=== PATIENT | male | born 1955 ===

== ENCOUNTER 2017-11-13 12:46 | Inpatient (IN) | payer MEDICAID, OTHER ==
--- NOTE | 2017-11-13 13:29 | ED PDOC ---
HPI: Headache Time Seen by Provider: 11/13/17 13:27 Chief Complaint (Nursing): Headache Chief Complaint (Provider): HEADACHE History Per: Patient (62 Y/O MALE H/O DM/HTN HERE WITH RIGHT EYE VISUAL DEFECT SINCE YESTERDAY AM. NOTES HEADACHE LAST NIGHT AT 11 PM. HERE FOR HEADACHE IT IS NOT IMPROVED WITH TYLENOL. PATIENT STATES RIGHT EYE UPPER QUADRANT HAS SOMETHING THERE/DENIES LOSS OF VISION.) Past Medical History Reviewed: Historical Data, Nursing Documentation, Vital Signs Vital Signs: Last Vital Signs Temp 97.0 F L 11/13/17 12:58 Pulse 83 11/13/17 12:58 Resp 16 11/13/17 12:58 BP 140/85 11/13/17 12:58 Pulse Ox 99 11/13/17 12:58 - Medical History PMH: Diabetes, HTN, Hypercholesterolemia Denies: Chronic Kidney Disease - Family History Family History: States: Unknown Family Hx - Immunization History Hx Influenza Vaccination: Yes - Home Medications Home Medications: Ambulatory Orders Medication Instructions Recorded MetFORMIN [glucOPHAGE] 1,000 mg PO DAILY 06/04/17 Insulin Aspart Prot/Insuln Asp 25 unit SC QPM 11/13/17 [Novolog Mix 70-30 Vial] Lisinopril [Zestril] 20 mg PO DAILY 11/13/17 Multivitamin [Multi-Vitamin Daily] 1 tab PO DAILY 11/13/17 - Allergies Allergies/Adverse Reactions: Allergies Allergy/AdvReac Type Severity Reaction Status Date / Time alendronate sodium Allergy RASH Verified 11/13/17 12:57 Review of Systems ROS Statement: Except As Marked, All Systems Reviewed And Found Negative Physical Exam - Reviewed Nursing Documentation Reviewed: Yes Vital Signs Reviewed: Yes - Physical Exam Appears: Positive for: Well, Non-toxic, No Acute Distress Head Exam: Positive for: ATRAUMATIC, NORMAL INSPECTION, NORMOCEPHALIC Skin: Positive for: Normal Color, Warm, DRY Eye Exam: Positive for: EOMI, Normal appearance, PERRL ENT: Positive for: Normal ENT Inspection Neck: Positive for: Normal, Painless ROM Cardiovascular/Chest: Positive for: Regular Rate, Rhythm Respiratory: Positive for: CNT, Normal Breath Sounds Gastrointestinal/Abdominal: Positive for: Normal Exam, Bowel Sounds, Soft Back: Positive for: Normal Inspection Extremity: Positive for: Normal ROM Neurologic/Psych: Positive for: Alert, Oriented - Laboratory Results Result Diagrams: 11/13/17 13:36 11/13/17 13:36 - ECG ECG Rhythm: Positive for: Sinus Rhythm (NSR 78 BPM NO ECTOPY T WAVE INV AVL; NO ACUTE CHANGES) O2 Sat by Pulse Oximetry: 99 - Progress ED Course And Treament: HEAD CT: IMPRESSION: No intracranial mass, hemorrhage or evidence of acute infarct. 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 D/W DR. HARRISON. RECOMMENDS MRI BRAIN/ MRA NECK/HEAD. 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 This is because of the severity of symptoms shown, intensity of services needed, and/or the medical risk in this patient being treated as an outpatient.
[2017-11-13 13:53] LABS: BASO # 0.1 K/uL (0.0-0.2); BASO % 0.9 % (0.0-2.0); EOS # 0.2 K/uL (0.0-0.7); EOS % 2.2 % (0.0-4.0); HEMOGLOBIN 13.6 g/dL (12.0-18.0); LYMPH # 1.8 K/uL (1.0-4.3); LYMPH % 20.6 % (20.0-40.0); MEAN CELL VOLUME 85.4 fl (80.0-94.0); MEAN PLATELET VOLUME 8.8 fl (7.2-11.7); MONO # 0.4 K/uL (0.0-0.8); NEUT # 6.5 K/uL (1.8-7.0); NEUT % 72.3 % (50.0-75.0); NRBC % 0.1 % (0.0-0.0); RBC 4.67 Mil/uL (4.40-5.90); RED CELL DISTRIBUTION WIDTH 14.1 % (11.5-14.5); WHITE BLOOD COUNT 8.9 K/uL (4.8-10.8)
[2017-11-13 14:03] LABS: INR 0.9 (0.9-1.2); PARTIAL THROMBOPLASTIN TIME 29.4 Seconds (25.6-37.1); PROTHROMBIN TIME 9.4 Seconds (9.8-13.1)
--- NOTE | 2017-11-13 14:11 | RAD ---
PROCEDURE: CHEST RADIOGRAPH, 1 VIEW HISTORY: ROUTINE COMPARISON: None available. FINDINGS: LUNGS: Clear. PLEURA: No pneumothorax or pleural fluid seen. CARDIOVASCULAR: Normal. OSSEOUS STRUCTURES: No significant abnormalities. VISUALIZED UPPER ABDOMEN: Normal. OTHER FINDINGS: None. IMPRESSION: No active disease.
--- NOTE | 2017-11-13 14:11 | CT ---
PROCEDURE: CT HEAD WITHOUT CONTRAST. HISTORY: VISUAL DEFECT RIGHT EYE/HEADACHE COMPARISON: None available. TECHNIQUE: Axial computed tomography images were obtained through the head/brain without intravenous contrast. Radiation dose: Total exam DLP = 865.00 mGy-cm. This CT exam was performed using one or more of the following dose reduction techniques: Automated exposure control, adjustment of the mA and/or kV according to patient size, and/or use of iterative reconstruction technique. FINDINGS: HEMORRHAGE: No intracranial hemorrhage. BRAIN: No mass effect or edema. No atrophy or chronic microvascular ischemic changes. Incidentally noted giant cisterna magna versus arachnoid cyst in posterior fossa. More likely giant cisterna magna. No likely clinical significance. VENTRICLES: Unremarkable. No hydrocephalus. CALVARIUM: Unremarkable. PARANASAL SINUSES: Unremarkable as visualized. No significant inflammatory changes. MASTOID AIR CELLS: Unremarkable as visualized. No inflammatory changes. OTHER FINDINGS: None. IMPRESSION: No intracranial mass, hemorrhage or evidence of acute infarct. 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
[2017-11-13 14:16] LABS: ALBUMIN 3.3 g/dL (3.5-5.0); ALT/SGPT 32 U/L (21-72); AST/SGOT 20 U/L (17-59); BLOOD UREA NITROGEN 22 mg/dl (9-20); CALCIUM 8.7 mg/dL (8.4-10.2); GFR AFRICAN-AMERICAN > 60; GFR NON-AFRICAN AMERICAN > 60
--- NOTE | 2017-11-13 17:02 | MRI ---
PROCEDURE: MR Angiography of the neck without contrast HISTORY: VISUAL DEFECT/HEADACHE COMPARISON: None available. TECHNIQUE: 3D [id number] angiography of the neck was performed. Rotating maximum intensity projection images of the cervical carotid and vertebral arteries were generated. The origins of the common carotid arteries were not visualized, which is a limitation inherent to the non-contrast time of flight technique. FINDINGS: RIGHT CAROTID ARTERIES: Common Carotid Artery: Normal. Carotid Bifurcation: A moderately large plaques identified at the carotid bulb extending to the right ICA resulting in a moderate right IAC stenosis Internal Carotid Artery:Moderate right ICA stenosis suggested potentially up to 50 percent. External Carotid Artery (proximal branches): Normal. LEFT CAROTID ARTERIES: Common Carotid Artery: Normal. Carotid Bifurcation: Normal. Internal Carotid Artery:Normal. External Carotid Artery (proximal branches): Normal. VERTEBRAL ARTERIES: Right Vertebral Artery: Normal. Left Vertebral Artery: Normal. OTHER FINDINGS: None. IMPRESSION: A moderate stenosis suggested at the right ICA origin extending from the right carotid bulb. Consider correlation with carotid ultrasound for additional evaluation. No significant stenosis otherwise at the right CCA or ICA. No significant stenosis left CCA or ICA.
--- NOTE | 2017-11-13 17:07 | MRI ---
PROCEDURE: Magnetic Resonance Angiography Brain HISTORY: VISUAL DEFECT/ HEADACHE COMPARISON: None available. TECHNIQUE: 3D time of flight MR angiography of the intracranial arteries was performed. Rotating maximum intensity projection images were generated. FINDINGS: INTERNAL CAROTID ARTERIES: Unremarkable. The skull base, petrous, cavernous and supraclinoid segments are bilaterally widely patient. ANTERIOR CEREBRAL ARTERIES: There is a hypoplastic right A1 BEHZAD. Left A1 and bilateral A2 segments are widely patent. Smaller distal branches unremarkable, as visualized. MIDDLE CEREBRAL ARTERIES: Unremarkable. M1 and M2 segments are widely patent. Perisylvian branches grossly symmetric. POSTERIOR CIRCULATION: Basilar Artery: Unremarkable. Distal Vertebral Arteries: Unremarkable. Posterior Cerebral Arteries: Hypoplastic right P1 PERSONNEL ASSOCIATE with the left PERSONNEL ASSOCIATE unremarkable. Posterior Inferior Cerebellar Arteries: Unremarkable. ANEURYSM/ VASCULAR MALFORMATIONS: None. OTHER FINDINGS: Widely patent bilateral posterior communicating artery's with a robust right P com identified. IMPRESSION: No definite significant stenosis or occlusion identified with symmetric blood flow identified within the intracranial arterial circulation. Congenital findings as discussed above.
--- NOTE | 2017-11-13 17:16 | MRI ---
PROCEDURE: MRI BRAIN WITHOUT CONTRAST HISTORY: VISUAL DEFECT COMPARISON: Unenhanced head CT 11/13/2017. TECHNIQUE: Multiplanar, multisequence MR images of the brain were obtained without intravenous contrast enhancement. FINDINGS: HEMORRHAGE: None DWI: Acute or subacute lacune left frontal lobe. BRAIN PARENCHYMA: Good corticomedullary differentiation is seen. Limited expansion of the ventriculosulcal and cisternal spaces is appreciated with minimal white matter signal changes compatible with diffuse cerebral atrophy and chronic microangiopathy. No suspicious extra-axial fluid collection is identified and the midline brain anatomy appears grossly nonfocal as imaged. There is no mass effect throughout. VENTRICLES: Unremarkable. No hydrocephalus. CRANIUM: Unremarkable. ORBITS: Grossly unremarkable. PARANASAL SINUSES/MASTOIDS: Clear VASCULAR SYSTEM: Skull base flow voids intact. OTHER FINDINGS: None. IMPRESSION: An acute or subacute lacune is identified in the left frontal lobe. Limited age-related neuro degenerative changes are otherwise identified. No mass effect or suspicious extra-axial fluid collection. No definite intracranial hemorrhage.
--- NOTE | 2017-11-13 18:04 | CP.PCM.HP ---
History of Present Illness - History of Present Illness History of Present Illness: Nolberto Lamas is a 62 yo M, PMH hypertension, diabetes mellitus type 2, hyperlipidemia who presented to the ED today with complaint of headache since last night, started around 3 am, and is waxing and waning in nature, ranging from a 1/10 to a 7/10. Pt reports that he took 400 mg ibuprofen and did not have marked relief. He also states that he has vision changes in his R eye- he is able to see out of it, but feels like "it is dirty," and reported that this problem started 3 days ago. Pt has not seen a PMD in over a year. Reports that he has been sharing his ' s medication. Reports that he takes 20U insulin (unable to say which) nightly, and metformin 1000mg daily, as well as lisinopril 20mg daily. He states he has history of hyperlipidemia as well. PMH: HTN, DM2, HLD Surg hx: left great toe hallux amputation Family hx: mother with htn, father of alcohol related issues Social hx: former tobacco smoker (ages [age], 1 ppd), drinks 1-2 times a month 10-20 drinks at a time, denies drug use Allergies: alendronate sodium Meds: as above, pt shares meds w/ his . reports he takes 20u sc insulin nightly, metformin 1000g daily, lisinopril 20mg daily. Code status: full code Next of kin: Rosie Lamas (daughter) [phone] ROS: denies dizziness, chest pain, shortness of breath, abdominal pain, diarrhea , GI upset, pain in legs ED course: CBC unremarkable CMP: BUN 22, Cr 1.0, glucose 310 EKG: sinus rhythm Head CT: No intracranial mass, hemorrhage or acute infarct. Neuro consult, Dr. Pereyra, recommended MRI brain/MRA neck and head. ASA 81 mg, Lipitor 40mg CXR: no active disease Present on Admission - Present on Admission Any Indicators Present on Admission: Yes History of Uncontrolled Diabetes: Yes Review of Systems - Review of Systems All systems: reviewed and no additional remarkable complaints except - Constitutional Constitutional: Chills, Headache - EENT Eyes: Change in Vision. absent: Loss of Vision - Cardiovascular Cardiovascular: absent: Chest Pain, Dyspnea - Respiratory Respiratory: absent: Cough, Dyspnea, Wheezing - Gastrointestinal Gastrointestinal: absent: Abdominal Pain, Nausea, Vomiting - Genitourinary Genitourinary: absent: Change in Urinary Stream, Difficulty Urinating, Urinary Frequency Past Patient History - Infectious Disease Hx of Infectious Diseases: None - Past Medical History & Family History Past Medical History?: Yes - Past Social History Smoking Status: Former Smoker Alcohol: Other (as per HPI) Drugs: Denies - CARDIAC Hx Hypercholesterolemia: Yes Hx Hypertension: Yes - PULMONARY Hx Respiratory Disorders: No - NEUROLOGICAL Hx Neurological Disorder: No - HEENT Hx HEENT Problems: No - RENAL Hx Chronic Kidney Disease: No - ENDOCRINE/METABOLIC Hx Diabetes Mellitus Type 2: Yes - HEMATOLOGICAL/ONCOLOGICAL Hx Blood Disorders: No - INTEGUMENTARY Hx Dermatological Problems: Yes Hx Cellulitis: Yes (left foot) - GASTROINTESTINAL Hx Gastrointestinal Disorders: No - GENITOURINARY/GYNECOLOGICAL Hx Genitourinary Disorders: No - PSYCHIATRIC Hx Psychophysiologic Disorder: No Hx Substance Use: No - SURGICAL HISTORY Hx Surgeries: Yes Other/Comment: left great toe hallux amputation 2years ago - ANESTHESIA Hx Anesthesia: Yes Hx Anesthesia Reactions: No Meds Allergies/Adverse Reactions: Allergies Allergy/AdvReac Type Severity Reaction Status Date / Time alendronate sodium Allergy RASH Verified 11/13/17 12:57 Physical Exam - Constitutional Appears: Non-toxic, No Acute Distress - Head Exam Head Exam: ATRAUMATIC, NORMAL INSPECTION, NORMOCEPHALIC - Eye Exam Eye Exam: PERRL Additional comments: pterygium on L eye - ENT Exam ENT Exam: Mucous Membranes Moist - Respiratory Exam Respiratory Exam: Clear to Auscultation Bilateral, NORMAL BREATHING PATTERN. absent: Wheezes, Respiratory Distress - Cardiovascular Exam Cardiovascular Exam: REGULAR RHYTHM, +S1, +S2 - GI/Abdominal Exam GI & Abdominal Exam: Normal Bowel Sounds, Soft. absent: Distended, Tenderness - Extremities Exam Extremities exam: Positive for: pedal pulses present. Negative for: calf tenderness, pedal edema, tenderness Additional comments: s/p L great toe hallux amputation - Back Exam Back exam: NORMAL INSPECTION - Neurological Exam Neurological exam: Alert, Oriented x3 Additional comments: 5/5 strength in all 4 extremities No focal neuro deficits - Skin Skin Exam: Dry, Intact Results - Vital Signs Recent Vital Signs: Last Vital Signs Temp 98.4 F 11/13/17 17:26 Pulse 85 11/13/17 17:26 Resp 16 11/13/17 17:26 BP 162/105 H 11/13/17 17:26 Pulse Ox 100 11/13/17 17:26 - Labs Result Diagrams: 11/13/17 13:36 11/13/17 13:36 Labs: Laboratory Results - last 24 hr 11/13/17 11/13/17 11/13/17 13:28 13:36 13:36 WBC 8.9 RBC 4.67 Hgb 13.6 Hct 39.9 MCV 85.4 MCH 29.0 MCHC 34.0 RDW 14.1 Plt Count 221 MPV 8.8 Neut % (Auto) 72.3 Lymph % (Auto) 20.6 [place] % (Auto) 4.0 Eos % (Auto) 2.2 Baso % (Auto) 0.9 Neut # (Auto) 6.5 Lymph # (Auto) 1.8 [place] # (Auto) 0.4 Eos # (Auto) 0.2 Baso # (Auto) 0.1 PT INR APTT Sodium 134 Potassium 5.0 Chloride 97 L Carbon Dioxide 28 Anion Gap 14 BUN 22 H Creatinine 1.0 Est GFR ( Amer) > 60 Est GFR (Non-Af Amer) > 60 POC Glucose (mg/dL) 289 H Random Glucose 310 H Calcium 8.7 Total Bilirubin 0.4 AST 20 ALT 32 Alkaline Phosphatase 134 H Troponin I 0.0140 Total Protein 6.6 Albumin 3.3 L D Globulin 3.2 Albumin/Globulin Ratio 1.0 11/13/17 13:36 WBC RBC Hgb Hct MCV MCH MCHC RDW Plt Count MPV Neut % (Auto) Lymph % (Auto) [place] % (Auto) Eos % (Auto) Baso % (Auto) Neut # (Auto) Lymph # (Auto) [place] # (Auto) Eos # (Auto) Baso # (Auto) PT 9.4 L INR 0.9 APTT 29.4 Sodium Potassium Chloride Carbon Dioxide Anion Gap BUN Creatinine Est GFR ( Amer) Est GFR (Non-Af Amer) POC Glucose (mg/dL) Random Glucose Calcium Total Bilirubin AST ALT Alkaline Phosphatase Troponin I Total Protein Albumin Globulin Albumin/Globulin Ratio Assessment & Plan - Assessment and Plan (Free Text) Assessment: 62 yo M with PMH hypertension, diabetes mellitus type 2, hyperlipidemia who was admitted due to headache and vision changes. Plan: # Vision Changes - Neuro consult: Dr. Pereyra - Head CT: No intracranial mass, hemorrhage or evidence of acute infarct. - Brain MRI w/o contrast: acute or subacute lacunae is identified in left frontal lobe. Limited age-related neuro degenerative changes are otherwise identified. No mass effect or suspicious extra-axial fluid collection. No definite intracranial hemorrhage. - Brain MRA: No definite significant stenosis or occlusion identified with symmetric blood flow identified within intracranial arterial circulation. - Neck MRA: A moderate stenosis suggested at right ICA origin extending from right catorid bulb. Consider correlation with carotid u/s. No significant stenosis otherwise at right CCA or ICA. No significant stenosis at left CCA or ICA. - Carotid U/s pending # Headache - Currently resolved, pt not in pain at this time - CMP, CBC # Diabetes Mellitus, type 2 - Poor follow up - Medication noncompliant, taking 's medications; states he takes 1000 mg metformin daily and 20U of unspecified insulin - HbA1c - Levemir 8U SC nightly - Insulin lispro 3U SC AC TID - Accuchecks - Insulin coverage - Hypoglycemia protocol - Lipid panel, TSH # HTN - Hold meds for now - Monitor BP # DVT Prophylaxis - Lovenox 40 mg SC HS, discussed w/ Dr. Pereyra
[2017-11-13] MEDS ORDERED: Dextrose 50% SYRINGE Inj (50 ml) IV PRN (19:18)
[2017-11-13] MEDS ORDERED: Glucagon Recombinant 1 mg Inj IM PRN (19:18)
[2017-11-13] MEDS ORDERED: Influenza Vaccine 18yr & older 0.5 ML/45 MCG SYR IM ONE (20:21)
[2017-11-13] MEDS: Insulin Lispro (humaLOG) 100 Units/ml Inj SC SCH (21:17)
[2017-11-13] MEDS: Enoxaparin 40 mg Syringe SC SCH (21:18)
[2017-11-13] MEDS ORDERED: Insulin Detemir 100 Units/ml Inj SC SCH (22:00)
[2017-11-14 06:45] LABS: ALT/SGPT 26 U/L (21-72); AST/SGOT 17 U/L (17-59); BLOOD UREA NITROGEN 25 mg/dl (9-20); CALCIUM 8.6 mg/dL (8.4-10.2); GFR AFRICAN-AMERICAN > 60; GFR NON-AFRICAN AMERICAN > 60; HDL CHOLESTEROL 23 MG/DL (30-70)
[2017-11-14 06:56] LABS: LDL CHOLESTEROL 81 mg/dL (0-129)
[2017-11-14 06:58] LABS: BASO # 0.1 K/uL (0.0-0.2); BASO % 0.9 % (0.0-2.0); EOS # 0.2 K/uL (0.0-0.7); EOS % 2.2 % (0.0-4.0); HEMOGLOBIN 13.3 g/dL (12.0-18.0); LYMPH # 2.8 K/uL (1.0-4.3); LYMPH % 24.9 % (20.0-40.0); MEAN CELL VOLUME 85.9 fl (80.0-94.0); MEAN CORPUSCULAR HEMOGLOBIN 29.1 pg (27.0-31.0); MEAN CORPUSCULAR HGB CONC 33.9 g/dL (33.0-37.0); MONO # 0.5 K/uL (0.0-0.8); MONO % 4.2 % (0.0-10.0); NEUT # 7.6 K/uL (1.8-7.0); NEUT % 67.8 % (50.0-75.0); RBC 4.57 Mil/uL (4.40-5.90); RED CELL DISTRIBUTION WIDTH 14.4 % (11.5-14.5); WHITE BLOOD COUNT 11.2 K/uL (4.8-10.8)
[2017-11-14] MEDS: Insulin Lispro (humaLOG) 100 Units/ml Inj SC SCH ×7 (07:03→21:40)
[2017-11-14] MEDS: Multivitamin With Minerals Tab PO SCH (09:03)
--- NOTE | 2017-11-14 13:32 | CP.PCM.PN ---
Subjective - Date & Time of Evaluation Date of Evaluation: 11/14/17 Time of Evaluation: 08:05 - Subjective Subjective: Pt seen and evaluated at bedside today. Reports he had a headache overnight and felt relief with 650 mg Tylenol. Pt stated today that he has actually clyde having visual disturbances intermittently- first time was 3 yrs ago, and then again 6 mo ago, prior to current episode that started 3 days ago. Today he describes the disturbance as a curtain coming down over his R visual field. Objective - Vital Signs/Intake and Output Vital Signs (last 24 hours): Temp Pulse Resp BP Pulse Ox 97.8 F 74 18 179/99 H 98 11/14/17 12:43 11/14/17 12:43 11/14/17 12:43 11/14/17 12:43 11/14/17 12:43 - Medications Medications: Current Medications Acetaminophen (Tylenol 325mg Tab) 650 mg PO Q6 PRN PRN Reason: Headache Last Admin: 11/13/17 23:39 Dose: 650 mg Dextrose (Dextrose 50% Inj) 0 ml IV STAT PRN; Protocol PRN Reason: Hypoglycemia Protocol Dextrose (Glutose 15) 0 gm PO ONCE PRN; Protocol PRN Reason: Hypoglycemia Protocol Enoxaparin Sodium (Lovenox) 40 mg SC HS [facility] PRN Reason: Protocol Last Admin: 11/13/17 21:18 Dose: 40 mg Glucagon (Glucagen Diagnostic Kit) 0 mg IM STAT PRN; Protocol PRN Reason: Hypoglycemia Protocol Insulin Detemir (Levemir) 8 units SC HS [facility] Last Admin: 11/13/17 21:19 Dose: 8 units Insulin Human Lispro (Humalog) 3 units SC ACTID [facility] Last Admin: 11/14/17 09:02 Dose: 3 units Insulin Human Lispro (Humalog) 0 units SC ACHS [facility] PRN Reason: Protocol Last Admin: 11/14/17 07:03 Dose: 3 units Metformin HCl (Glucophage) 1,000 mg PO DAILY [facility] Last Admin: 11/14/17 09:00 Dose: 1,000 mg Multivitamins/Minerals (Therapeutic-M Tab) 1 tab PO DAILY [facility] Last Admin: 11/14/17 09:03 Dose: 1 tab - Labs Labs: 11/14/17 04:45 11/14/17 04:45 PT 9.4 Seconds (9.8-13.1) L 11/13/17 13:36 INR 0.9 (0.9-1.2) 11/13/17 13:36 APTT 29.4 Seconds (25.6-37.1) 11/13/17 13:36 - Constitutional Appears: Non-toxic - Head Exam Head Exam: NORMAL INSPECTION - Eye Exam Eye Exam: PERRL - ENT Exam ENT Exam: Mucous Membranes Moist - Cardiovascular Exam Cardiovascular Exam: REGULAR RHYTHM, +S1, +S2 - GI/Abdominal Exam GI & Abdominal Exam: Soft, Normal Bowel Sounds. absent: Distended, Tenderness - Extremities Exam Extremities Exam: absent: Calf Tenderness, Pedal Edema Additional comments: s/p amputation of hallux on L great toe - Back Exam Back Exam: NORMAL INSPECTION - Neurological Exam Neurological Exam: Alert, Awake, Normal Gait, Oriented x3 - Psychiatric Exam Psychiatric exam: Normal Mood - Skin Skin Exam: Dry, Intact, Normal Color, Warm Assessment and Plan - Assessment and Plan (Free Text) Assessment: 62 yo M with PMHx hypertension, diabetes mellitus type 2, hyperlipidemia who was admitted due to headache and vision changes. Headache overnight, relief with tylenol. Due to information patient provided today, possible opthalmological etiology. Plan: # Subacute ischemic stroke, embolic vs thrombotic - Neuro consult: Dr. Pereyra's note states pt has suffered from subacute ischemic stroke involving left frontal lobe, has right carotid stenosis with right eye blurry vision. - Neuro recs: - Telemetry - Echocardiogram with bubble study - pending - Carotid doppler bilaterally - pending - Aspirin 81 mg daily and Plavix 75 mg daily for 21 days, followed by aspirin 81 mg indefinitely - Lipitor 10 mg daily to maintain LDL < 70 - DVT prophylaxis - lovenox 40 mg SC - Fluids with NS at 100 ml/hr for 24 hrs - Head CT: No intracranial mass, hemorrhage or evidence of acute infarct. - Brain MRI w/o contrast: acute or subacute lacunae is identified in left frontal lobe. Limited age-related neuro degenerative changes are otherwise identified. No mass effect or suspicious extra-axial fluid collection. No definite intracranial hemorrhage. - Brain MRA: No definite significant stenosis or occlusion identified with symmetric blood flow identified within intracranial arterial circulation. - Neck MRA: A moderate stenosis suggested at right ICA origin extending from right catorid bulb. Consider correlation with carotid u/s. No significant stenosis otherwise at right CCA or ICA. No significant stenosis at left CCA or ICA. # Headache - Dr. Pereyra: headache may be caused by stroke or could be independent; will treat with decadron 10 mg IV, as wel as magnesium sulfate 2gm IV. - Relief with 650 mg acetaminophen - Possibly due to poor htn control # Vision changes - Opthalmology consult: Dr. Fraser - stated pt can be seen outpatient # Diabetes Mellitus, type 2 - Poor follow up - Medication noncompliant, taking 's medications; states he takes 1000 mg metformin daily and 20U of unspecified insulin - HbA1c: 10.3 - Levemir 12U SC nightly - Insulin lispro 4U SC AC TID - Accuchecks - Insulin coverage - Hypoglycemia protocol - TSH wnl # HTN - Permissive htn today - Monitor BP # Hyperlipidemia - Total cholesterol 205, LDL 81, HDL 23, Triglycerides 432 - Lipitor 10 mg as per neuro # DVT Prophylaxis - Lovenox 40 mg SC HS, discussed w/ Dr. Pereyra
--- NOTE | 2017-11-14 13:51 | CP.PCM.CON ---
History of Present Illness - History of Present Illness History of Present Illness: Mr. Lamas is a 62-year-old man, who does not follow up with doctors often, but has a past medical history of hypertension, DM2, HLD, who presented to the ED yesterday, complaining of headache that started the previous morning and was intermittent, but was severe at times. He also complained of blurry vision of the right eye. CT did not show anything acute, but MRI showed a left frontal lobe subacute infarct, and MRA of the neck showed a 50% stenosis of the LAYLA. Review of Systems - Review of Systems All systems: reviewed and no additional remarkable complaints except Past Patient History - Infectious Disease Hx of Infectious Diseases: None - Past Medical History & Family History Past Medical History?: Yes - Past Social History Smoking Status: Former Smoker - CARDIAC Hx Hypercholesterolemia: Yes Hx Hypertension: Yes - PULMONARY Hx Respiratory Disorders: No - NEUROLOGICAL Hx Neurological Disorder: No - HEENT Hx HEENT Problems: No - RENAL Hx Chronic Kidney Disease: No - ENDOCRINE/METABOLIC Hx Diabetes Mellitus Type 2: Yes - HEMATOLOGICAL/ONCOLOGICAL Hx Blood Disorders: No Hx AIDS: No Hx Human Immunodeficiency Virus (HIV): No - INTEGUMENTARY Hx Dermatological Problems: Yes Hx Cellulitis: Yes (left foot) - MUSCULOSKELETAL/RHEUMATOLOGICAL Hx Falls: No - GASTROINTESTINAL Hx Gastrointestinal Disorders: No - GENITOURINARY/GYNECOLOGICAL Hx Genitourinary Disorders: No - PSYCHIATRIC Hx Psychophysiologic Disorder: No Hx Substance Use: No - SURGICAL HISTORY Hx Surgeries: Yes Other/Comment: left great toe hallux amputation 2years ago - ANESTHESIA Hx Anesthesia: Yes Hx Anesthesia Reactions: No Meds Allergies/Adverse Reactions: Allergies Allergy/AdvReac Type Severity Reaction Status Date / Time alendronate sodium Allergy RASH Verified 11/13/17 12:57 CT Scan PO Contrast Allergy RASH Uncoded 11/13/17 22:44 - Medications Medications: Current Medications Acetaminophen (Tylenol 325mg Tab) 650 mg PO Q6 PRN PRN Reason: Headache Last Admin: 11/13/17 23:39 Dose: 650 mg Dextrose (Dextrose 50% Inj) 0 ml IV STAT PRN; Protocol PRN Reason: Hypoglycemia Protocol Dextrose (Glutose 15) 0 gm PO ONCE PRN; Protocol PRN Reason: Hypoglycemia Protocol Enoxaparin Sodium (Lovenox) 40 mg SC HS [facility] PRN Reason: Protocol Last Admin: 11/13/17 21:18 Dose: 40 mg Glucagon (Glucagen Diagnostic Kit) 0 mg IM STAT PRN; Protocol PRN Reason: Hypoglycemia Protocol Insulin Detemir (Levemir) 8 units SC HS [facility] Last Admin: 11/13/17 21:19 Dose: 8 units Insulin Human Lispro (Humalog) 3 units SC ACTID [facility] Last Admin: 11/14/17 13:18 Dose: 3 units Insulin Human Lispro (Humalog) 0 units SC ACHS [facility] PRN Reason: Protocol Last Admin: 11/14/17 13:21 Dose: 4 units Metformin HCl (Glucophage) 1,000 mg PO DAILY [facility] Last Admin: 11/14/17 09:00 Dose: 1,000 mg Multivitamins/Minerals (Therapeutic-M Tab) 1 tab PO DAILY [facility] Last Admin: 11/14/17 09:03 Dose: 1 tab Physical Exam - Eye Exam Eye Exam: EOMI, Normal appearance, PERRL - Neck Exam Neck exam: Positive for: Normal Inspection - Respiratory Exam Respiratory Exam: Clear to Auscultation Bilateral, NORMAL BREATHING PATTERN - Cardiovascular Exam Cardiovascular Exam: REGULAR RHYTHM, +S1, +S2 - GI/Abdominal Exam GI & Abdominal Exam: Normal Bowel Sounds, Soft. absent: Tenderness - Rectal Exam Rectal Exam: Deferred - Extremities Exam Extremities exam: Positive for: normal inspection - Back Exam Back exam: NORMAL INSPECTION - Neurological Exam Neurological exam: Alert, CN II-XII Intact, Normal Gait, Oriented x3, Reflexes Normal - Psychiatric Exam Psychiatric exam: Normal Affect, Normal Mood Results - Vital Signs Recent Vital Signs: Last Vital Signs Temp 97.8 F 11/14/17 12:43 Pulse 74 11/14/17 12:43 Resp 18 11/14/17 12:43 BP 179/99 H 11/14/17 12:43 Pulse Ox 98 11/14/17 12:43 - Labs Result Diagrams: 11/14/17 04:45 11/15/17 05:05 Labs: Laboratory Results - last 24 hr 11/13/17 11/13/17 11/13/17 13:36 13:36 13:36 WBC 8.9 RBC 4.67 Hgb 13.6 Hct 39.9 MCV 85.4 MCH 29.0 MCHC 34.0 RDW 14.1 Plt Count 221 MPV 8.8 Neut % (Auto) 72.3 Lymph % (Auto) 20.6 Frontier % (Auto) 4.0 Eos % (Auto) 2.2 Baso % (Auto) 0.9 Neut # (Auto) 6.5 Lymph # (Auto) 1.8 Frontier # (Auto) 0.4 Eos # (Auto) 0.2 Baso # (Auto) 0.1 PT 9.4 L INR 0.9 APTT 29.4 Sodium 134 Potassium 5.0 Chloride 97 L Carbon Dioxide 28 Anion Gap 14 BUN 22 H Creatinine 1.0 Est GFR ( Amer) > 60 Est GFR (Non-Af Amer) > 60 POC Glucose (mg/dL) Random Glucose 310 H Calcium 8.7 Total Bilirubin 0.4 AST 20 ALT 32 Alkaline Phosphatase 134 H Troponin I 0.0140 Total Protein 6.6 Albumin 3.3 L D Globulin 3.2 Albumin/Globulin Ratio 1.0 Triglycerides Cholesterol LDL Cholesterol Direct HDL Cholesterol TSH 3rd Generation 11/13/17 11/14/17 11/14/17 20:59 04:45 04:45 WBC 11.2 H RBC 4.57 Hgb 13.3 Hct 39.2 MCV 85.9 MCH 29.1 MCHC 33.9 RDW 14.4 Plt Count 207 MPV 10.0 Neut % (Auto) 67.8 Lymph % (Auto) 24.9 Frontier % (Auto) 4.2 Eos % (Auto) 2.2 Baso % (Auto) 0.9 Neut # (Auto) 7.6 H Lymph # (Auto) 2.8 Frontier # (Auto) 0.5 Eos # (Auto) 0.2 Baso # (Auto) 0.1 PT INR APTT Sodium 133 Potassium 4.7 Chloride 102 Carbon Dioxide 23 Anion Gap 13 BUN 25 H Creatinine 1.1 Est GFR ( Amer) > 60 Est GFR (Non-Af Amer) > 60 POC Glucose (mg/dL) 262 H Random Glucose 257 H Calcium 8.6 Total Bilirubin 0.4 AST 17 ALT 26 Alkaline Phosphatase 122 Troponin I Total Protein 6.1 L Albumin 3.0 L Globulin 3.1 Albumin/Globulin Ratio 1.0 Triglycerides 432 H D Cholesterol 205 H LDL Cholesterol Direct 81 HDL Cholesterol 23 L TSH 3rd Generation 0.80 11/14/17 11/14/17 05:46 11:22 WBC RBC Hgb Hct MCV MCH MCHC RDW Plt Count MPV Neut % (Auto) Lymph % (Auto) Frontier % (Auto) Eos % (Auto) Baso % (Auto) Neut # (Auto) Lymph # (Auto) Frontier # (Auto) Eos # (Auto) Baso # (Auto) PT INR APTT Sodium Potassium Chloride Carbon Dioxide Anion Gap BUN Creatinine Est GFR ( Amer) Est GFR (Non-Af Amer) POC Glucose (mg/dL) 222 H 285 H Random Glucose Calcium Total Bilirubin AST ALT Alkaline Phosphatase Troponin I Total Protein Albumin Globulin Albumin/Globulin Ratio Triglycerides Cholesterol LDL Cholesterol Direct HDL Cholesterol TSH 3rd Generation Assessment & Plan (1) Ischemic stroke Assessment and Plan: The patient has suffered from a subacute ischemic stroke involving the left frontal lobe, and has right carotid stenosis with right eye blurry vision. These events may be embolic or could be thrombotic. I recommend the followin. Telemetry 2. Echocardiogram with bubble study 3. Carotid doppler bilaterally 4. Aspirin 81 mg daily and Plavix 75 mg daily for 21 days, followed by aspirin 81 mg monotherapy indefinitely 5. Lipitor 10mg daily to maintain LDL< 70 6. PT/OT eval and treat 7. DVT Px 8. Fluids with NS at 100 mL/hr for 24 hours 9. Treat underlying risk factors for stroke and provide stroke education Thank you. Status: Acute Priority: High (2) Headache Assessment and Plan: The headache may be caused by the stroke, or could be independent. Will treat with decadron 10 mg IV once, as well as magnesium sulfate 2 grams IV once. Neurology team will follow. Status: Acute
[2017-11-14] MEDS: Sodium Chloride 0.9% 1,000 ML IV SCH (16:55)
--- NOTE | 2017-11-14 17:48 | CARD ---
APPROVED REPORT EXAM: Two-dimensional and M-mode echocardiogram with Doppler and color Doppler. Other Information Quality : GoodRhythm : NSR INDICATION CVA/TIA Echo Enhancing Agent Indication: Rule Out Septal Defect Agent/Amount Used: Agitated Saline 2D DIMENSIONS IVSd1.44 (0.7-1.1cm)LVDd4.27 (3.9-5.9cm) LVOT Diameter2.34 (1.8-2.4cm)PWd0.91 (0.7-1.1cm) IVSs1.97 (0.8-1.2cm)LVDs2.93 (2.5-4.0cm) FS (%) 31.4 %PWs1.72 (0.8-1.2cm) M-Mode DIMENSIONS Left Atrium (MM)4.03 (2.5-4.0cm)IVSd2.03 (0.7-1.1cm) Aortic Root3.74 (2.2-3.7cm)LVDd4.26 (4.0-5.6cm) Aortic Cusp Exc.2.41 (1.5-2.0cm)PWd1.50 (0.7-1.1cm) IVSs1.85 cmFS (%) 32 % LVDs2.91 (2.0-3.8cm)PWs1.62 cm Mitral Valve MV E Dgkzryfp02.8cm/sMV DECEL [id number] A Quhtnyjt09.7cm/s MV RBO07eeH/A ratio0.6MVA (PHT)2.86cm2 TDI Lateral E' Peak V5.46cm/sMedial E' Peak V3.50cm/sE/Lateral E'11.0 E/Medial E'17.1 Pulmonary Valve PV Peak Jeihtixg77.5cm/s LEFT VENTRICLE The left ventricle is normal size. There is mild asymmetric left ventricular hypertrophy. The left ventricular function is normal. The left ventricular ejection fraction is 55% There is normal LV segmental wall motion. Transmitral Doppler flow pattern is Grade I-abnormal relaxation pattern. No left ventricle thrombus noted on this study. There is no ventricular septal defect visualized. There is no left ventricular aneurysm. There is no mass noted in the left ventricle. RIGHT VENTRICLE The right ventricle is normal size. There is normal right ventricular wall thickness. The right ventricular systolic function is normal. ATRIA The left atrium size is normal. The right atrium size is normal. The interatrial septum is intact with no evidence for an atrial septal defect. AORTIC VALVE The aortic valve is normal in structure. No aortic regurgitation is present. There is no aortic valvular stenosis. There is no aortic valvular vegetation. MITRAL VALVE The mitral valve is normal in structure. There is no evidence of mitral valve prolapse. There is no mitral valve stenosis. There is no mitral valve regurgitation noted. TRICUSPID VALVE The tricuspid valve is normal in structure. There is no tricuspid valve regurgitation noted. There is no tricuspid valve prolapse or vegetation. There is no tricuspid valve stenosis. PULMONIC VALVE The pulmonary valve is normal in structure. There is no pulmonic valvular regurgitation. There is no pulmonic valvular stenosis. GREAT VESSELS The aortic root is normal in size. The ascending aorta is normal in size. The IVC is normal in size and collapses >50% with inspiration. PERICARDIAL EFFUSION The pericardium appears normal. There is no pleural effusion. <Conclusion> Normal LV Systolic Function Mild Asymetric LV Hypertrophy ( No outflow gradient) Impaired diastolic relaxation
--- NOTE | 2017-11-14 18:08 | CARD ---
APPROVED REPORT EKG Measurement Heart [id number] <Conclusion> Normal sinus rhythm Normal ECG
[2017-11-14] MEDS: Enoxaparin 40 mg Syringe SC SCH (21:39)
[2017-11-14] MEDS: Insulin Detemir 100 Units/ml Inj SC SCH (21:41)
[2017-11-15] MEDS: Sodium Chloride 0.9% 1,000 ML IV SCH (02:58)
[2017-11-15 06:42] LABS: ALB/GLOB RATIO 0.9 (1.0-2.1); ALBUMIN 2.7 g/dL (3.5-5.0); ALT/SGPT 27 U/L (21-72); AST/SGOT 21 U/L (17-59); BLOOD UREA NITROGEN 24 mg/dl (9-20); CALCIUM 8.3 mg/dL (8.4-10.2); GFR AFRICAN-AMERICAN > 60; GFR NON-AFRICAN AMERICAN > 60
[2017-11-15] MEDS: Insulin Lispro (humaLOG) 100 Units/ml Inj SC SCH ×7 (07:30→21:34)
--- NOTE | 2017-11-15 09:03 | CP.PCM.PN ---
Subjective - Date & Time of Evaluation Date of Evaluation: 11/15/17 Time of Evaluation: 08:00 - Subjective Subjective: Patient seen and examined at bedside with attending. 62M who is preparing to eat breakfast denies any further episodes fo "dirty vision" or headaches overnight. He denies any dizziness, SOB, chest pain or palpitations. Objective - Vital Signs/Intake and Output Vital Signs (last 24 hours): Temp Pulse Resp BP Pulse Ox 36.7 C 71 18 164/98 H 98 11/15/17 07:58 11/15/17 07:58 11/15/17 07:58 11/15/17 07:58 11/15/17 07:58 - Medications Medications: Current Medications Acetaminophen (Tylenol 325mg Tab) 650 mg PO Q6 PRN PRN Reason: Headache Last Admin: 11/13/17 23:39 Dose: 650 mg Aspirin (Ecotrin) 81 mg PO DAILY [facility] Last Admin: 11/14/17 16:44 Dose: 81 mg Atorvastatin Calcium (Lipitor) 10 mg PO DAILY [facility] Last Admin: 11/14/17 16:45 Dose: 10 mg Clopidogrel Bisulfate (Plavix) 75 mg PO DAILY [facility] Last Admin: 11/14/17 16:44 Dose: 75 mg Dextrose (Dextrose 50% Inj) 0 ml IV STAT PRN; Protocol PRN Reason: Hypoglycemia Protocol Dextrose (Glutose 15) 0 gm PO ONCE PRN; Protocol PRN Reason: Hypoglycemia Protocol Docusate Sodium (Colace) 100 mg PO BID [facility] Enoxaparin Sodium (Lovenox) 40 mg SC [facility] PRN Reason: Protocol Last Admin: 11/14/17 21:39 Dose: 40 mg Glucagon (Glucagen Diagnostic Kit) 0 mg IM STAT PRN; Protocol PRN Reason: Hypoglycemia Protocol Sodium Chloride (Sodium Chloride 0.9%) 1,000 mls @ 100 mls/hr IV .Q10H [facility] Stop: 11/15/17 14:57 Last Admin: 11/15/17 02:58 Dose: 100 mls/hr Insulin Detemir (Levemir) 12 units SC HS [facility] Last Admin: 11/14/17 21:41 Dose: 12 units Insulin Human Lispro (Humalog) 0 units SC ACHS [facility] PRN Reason: Protocol Last Admin: 11/14/17 21:40 Dose: Not Given Insulin Human Lispro (Humalog) 4 units SC ACTID [facility] Metformin HCl (Glucophage) 1,000 mg PO BIDWM [facility] Multivitamins/Minerals (Therapeutic-M Tab) 1 tab PO DAILY [facility] Last Admin: 11/14/17 09:03 Dose: 1 tab - Labs Labs: 11/14/17 04:45 11/15/17 05:05 PT 9.4 Seconds (9.8-13.1) L 11/13/17 13:36 INR 0.9 (0.9-1.2) 11/13/17 13:36 APTT 29.4 Seconds (25.6-37.1) 11/13/17 13:36 - Constitutional Appears: Well, Non-toxic - Head Exam Head Exam: ATRAUMATIC, NORMAL INSPECTION - Eye Exam Eye Exam: EOMI, PERRL - ENT Exam ENT Exam: Mucous Membranes Moist - Respiratory Exam Respiratory Exam: Clear to Ausculation Bilateral, NORMAL BREATHING PATTERN - Cardiovascular Exam Cardiovascular Exam: REGULAR RHYTHM, +S1, +S2 - GI/Abdominal Exam GI & Abdominal Exam: Soft, Normal Bowel Sounds - Extremities Exam Extremities Exam: Full ROM, Normal Capillary Refill, Normal Inspection - Neurological Exam Neurological Exam: Alert, Awake, CN II-XII Intact, Normal Gait, Oriented x3 - Psychiatric Exam Psychiatric exam: Normal Affect, Normal Mood - Skin Skin Exam: Normal Color, Warm Assessment and Plan - Assessment and Plan (Free Text) Assessment: 62M found to have ischemic stroke on secondary stroke prevention. Plan: Ischemic Stroke: Echo WNL w/ negative bubble study, IVF, ASA/Plavix, Statin, Permissive HTN at this time, Carotid Duplex pending HTN: Permissive at present DM: Increased frequency of Metformin from daily to BIDWM, will adjust insulin regimen at later DVT Prophylaxis: Lovenox
[2017-11-15] MEDS: Multivitamin With Minerals Tab PO SCH (09:05)
[2017-11-15] MEDS ORDERED: Labetalol 5mg/ml (4ml) IVP STA ×2 (12:10→18:09)
[2017-11-15] MEDS ORDERED: Labetalol 5mg/ml (4ml) ONE ×2 (12:14→18:06)
--- NOTE | 2017-11-15 13:14 | PCM.RRT ---
JEWEL SAWYER Nurse Assessment - Situation JEWEL SAWYER Reason for Call: Hypertension JEWEL SAWYER Called By: RN - IV IV Inserted during JEWEL SAWYER?: No - Respiratory Oxygen Delivery Method: Room Air I.Reason for JEWEL SAWYER - A) Acute Change in Patient: (Select all that apply): Acute change in SBP below Subjective: JEWEL SAWYER time call: 12:00 JEWEL SAWYER Arrival: 12:01 JEWEL SAWYER Location: [facility]– [place] S: JEWEL SAWYER was called by RN on a 62 y/o M who had a very elevated BP. Nurse reported being taking care of patient and detecting a vert high BP upon checking vital signs. Pt complained only of a mild constant headache located on occipital area. Pt denies fever, chills, CP, palpitations, SOB, nausea, dizziness or confusion. O: - VS: BP 218/103, HR 84, Sat O2 97%, RR 16 - Physical Exam: > GEN: Pt was resting comfortably on bed, in suspine position, not in acute distress, awake, alert, oriented x3 and verbally responsive. > HEENT: NC/AT, EOMI, PEERL, oropharynx with NO erythema. > CV: S1 S2 present. > Lungs: CTAB > EXT: No edema, cyanosis or erythema. Amputated first toe. > NEURO: strength 5/5 bilaterally in upper and lower extremities, SILT b/l, CN 2-12 except CN 8 were grossly normal. JEWEL SAWYER Interventions: - EKG was ordered, unremarkable. - Labetalol 20mg IVP was administered. - Pt remained responsive through JEWEL SAWYER in no acute distress. - Primary care team was reported about JEWEL SAWYER episode. Repeated Vital Signs: BP 189/84, HR 82. A/P: 62 y/o M with a PMHx of DM 2, HLD and HTN admitted for evaluation of subacute CVA, had a episode of elevated BP. Due to CVA, BP has has not to be reduced rapidly. - Add Lisinopril 10mg daily, hold if BP<150. - Continue current management. - Monitor VS. JEWEL SAWYER End: 12:21 JEWEL SAWYER Leader: Dr Norris, Dr Jensen. JEWEL SAWYER Residents: Dr Britton PGY-1, Dr Duarte PGY-1.
[2017-11-15] MEDS ORDERED: Dexamethasone 10 MG in Sodium Chloride 0.9% 50 ML IVPB ONE (14:18)
--- NOTE | 2017-11-15 14:56 | CP.PCM.PN ---
Subjective - Date & Time of Evaluation Date of Evaluation: 11/15/17 Time of Evaluation: 14:53 - Subjective Subjective: Mr. Lamas was seen and examined today at bedside. He had an ENVIRONMENTAL EDUCATOR called earlier today for hypertensive emergency. He had a headache at the time and his BP was lowered acutely and his headache improved somewhat. He did not have any mental status changes or new focal neurological deficits. He said that his vision is improved today. Objective - Vital Signs/Intake and Output Vital Signs (last 24 hours): Temp Pulse Resp BP Pulse Ox 98.1 F 77 18 189/84 H 97 11/15/17 12:00 11/15/17 12:00 11/15/17 12:00 11/15/17 12:20 11/15/17 12:00 - Medications Medications: Current Medications Acetaminophen (Tylenol 325mg Tab) 650 mg PO Q6 PRN PRN Reason: Headache Last Admin: 11/13/17 23:39 Dose: 650 mg Aspirin (Ecotrin) 81 mg PO DAILY [facility] Last Admin: 11/15/17 09:05 Dose: 81 mg Atorvastatin Calcium (Lipitor) 10 mg PO DAILY [facility] Last Admin: 11/15/17 09:05 Dose: 10 mg Clopidogrel Bisulfate (Plavix) 75 mg PO DAILY [facility] Last Admin: 11/15/17 09:05 Dose: 75 mg Dexamethasone (Decadron Inj) 10 mg IVP ONCE ONE Stop: 11/15/17 15:01 Dextrose (Dextrose 50% Inj) 0 ml IV STAT PRN; Protocol PRN Reason: Hypoglycemia Protocol Dextrose (Glutose 15) 0 gm PO ONCE PRN; Protocol PRN Reason: Hypoglycemia Protocol Docusate Sodium (Colace) 100 mg PO BID [facility] Last Admin: 11/15/17 09:15 Dose: 100 mg Enoxaparin Sodium (Lovenox) 40 mg SC HS [facility] PRN Reason: Protocol Last Admin: 11/14/17 21:39 Dose: 40 mg Glucagon (Glucagen Diagnostic Kit) 0 mg IM STAT PRN; Protocol PRN Reason: Hypoglycemia Protocol Magnesium Sulfate (Magnesium Sulfate 2 Gm/50 Ml Water) 2 gm in 50 mls @ 50 mls/ hr IVPB ONCE ONE PRN Reason: 2 GM/HR Stop: 11/15/17 15:59 Insulin Detemir (Levemir) 12 units SC HS [facility] Last Admin: 11/14/17 21:41 Dose: 12 units Insulin Human Lispro (Humalog) 0 units SC ACHS [facility] PRN Reason: Protocol Last Admin: 11/15/17 07:30 Dose: 2 units Insulin Human Lispro (Humalog) 4 units SC ACTID [facility] Last Admin: 11/15/17 07:30 Dose: 4 units Lisinopril (Zestril) 10 mg PO DAILY [facility] Metformin HCl (Glucophage) 1,000 mg PO BIDWM [facility] Last Admin: 11/15/17 09:05 Dose: 1,000 mg Multivitamins/Minerals (Therapeutic-M Tab) 1 tab PO DAILY [facility] Last Admin: 11/15/17 09:05 Dose: 1 tab - Labs Labs: 11/14/17 04:45 11/15/17 05:05 PT 9.4 Seconds (9.8-13.1) L 11/13/17 13:36 INR 0.9 (0.9-1.2) 11/13/17 13:36 APTT 29.4 Seconds (25.6-37.1) 11/13/17 13:36 - Neurological Exam Neurological Exam: Alert, Awake, CN II-XII Intact, Normal Gait, Oriented x3, Reflexes Normal. absent: Abnormal Gait, Altered, Motor Sensory Deficit Neuro motor strength exam: Left Upper Extremity: 5, Right Upper Extremity: 5, Left Lower Extremity: 5, Right Lower Extremity: 5 Assessment and Plan (1) Ischemic stroke Assessment & Plan: Will continue secondary stroke prevention and follow carotid doppler. Status: Acute (2) Headache Assessment & Plan: Will treat with decadron 10 mg IV once and magnesium sulfate 2 grams IV once. May normalize BP now. Status: Acute
[2017-11-15] MEDS ORDERED: Magnesium Sulfate 2 gm/50 ml 2 GM/50 ML BAG IVPB ONE (15:00)
[2017-11-15] MEDS ORDERED: Metoprolol 1 mg/ml Inj IVP ONE (16:32)
--- NOTE | 2017-11-15 19:50 | PCM.RRT ---
[employer] Nurse Assessment - Situation Location: telemetry Room Number: 406- [employer] Reason for Call: Hypertension [employer] Called By: RN - IV IV Inserted during SUPERVISOR [employer]ER[employer]?: No - Respiratory Oxygen Delivery Method: Room Air Received Nebulizer Treatments: No Was the Patient Ventilated with Bag/Mask 100% O2?: No Secretions Suctioned?: No Was the Patient Intubated?: No Was the Patient Placed on a Ventilator?: No - Medication Medications Administered During [employer]: Labetalol 20 mg IVP - Diagnostic Test Ordered EKG: No Chest X-Ray: No CT Scan: No CPR started during [employer]?: No - Vital Signs Vital Signs: Rapid Response Vital Sign Blood Pressure 220/115 Pulse Rate 85 Respiratory Rate 18 Oxygen Saturation 97 - Time [employer] Ended Time [employer] Ended: 18:10 - Vital Signs at end of [employer] Vital Signs at end of [employer]OR [employer]: Rapid Response End Vital Sign Blood Pressure 200/94 Pulse Rate 86 Respiratory Rate 18 O2 Sat by Pulse Oximetry 97 - Recommendations [employer] Level of Care Recommendations: Remain in current setting I.Reason for [employer] - A) Acute Change in Patient: Subjective: [employer] time call: 18:02 [employer] Arrival: 18:02 [employer] Location: [facility] [place] [facility] S: [employer] was called by RN on a 62 y/o M who had a very elevated BP again. Pt reports being asymptomatic. Pt now denies headache, fever, chills, CP, palpitations, SOB, nausea, dizziness or confusion. O: - VS: BP 220/115, HR 85. - Physical Exam: > GEN: Pt was resting comfortably on bed, not in acute distress, awake, alert , oriented x3 and verbally responsive. > HEENT: NC/AT, EOMI, PEERL, oropharynx with NO erythema. > CV: S1 S2 present. > Lungs: CTAB > EXT: No edema, cyanosis or erythema. Amputated first toe. > NEURO: strength 5/5 bilaterally in upper and lower extremities, SILT b/l. [employer] Interventions: - Labetalol 20mg IVP was administered. - Pt remained responsive through [employer] in no acute distress. - Primary care team was reported about this new [employer] episode. Repeated Vital Signs 1 minute after Labetalol administration: BP 200/94, HR 82. Repeated Vital Signs 10 minute after Labetalol administration: BP 196/107, HR 86. A/P: 62 y/o M with a PMHx of DM 2, HLD and HTN admitted for evaluation of subacute CVA, had another episode of elevated BP. Due to CVA, BP has has not to be reduced rapidly. - Lisinopril 10mg daily, hold if BP<150. - Continue current management. - Monitor VS. [employer] End: 18:20 [employer] Leader: Dr Norris. [employer] Residents: Dr Ramos PGY-2, Dr Duarte PGY-1.
[2017-11-15] MEDS: Enoxaparin 40 mg Syringe SC SCH (21:32)
[2017-11-15] MEDS: Insulin Detemir 100 Units/ml Inj SC SCH (21:34)
[2017-11-15] MEDS ORDERED: Insulin Detemir 100 Units/ml Inj SC SCH (23:02)
[2017-11-16] MEDS ORDERED: Labetalol 5 mg/ml Inj 20ML IVP ONE (00:28)
--- NOTE | 2017-11-16 02:31 | CP.PCM.PCO ---
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 I went to check on patient, he was asymptomatic, lying in bed comfortably. I asked nurse to recheck BP in 1 hour. 20:30 Patient was seen, BP remained 190s systolic, HCTZ 12.5mg was ordered. 00:00 BP remained in 190s, patient still asymptomatic, Labetolol 20mg ordered. 02:30 BP checked by me, 138/82, HR 91. Patient lying in bed without any complaints. Richard PGY 2
[2017-11-16 06:30] LABS: HEMOGLOBIN 12.9 g/dL (12.0-18.0); MEAN CELL VOLUME 86.1 fl (80.0-94.0); MEAN CORPUSCULAR HEMOGLOBIN 28.8 pg (27.0-31.0); MEAN CORPUSCULAR HGB CONC 33.5 g/dL (33.0-37.0); RBC 4.48 Mil/uL (4.40-5.90); RED CELL DISTRIBUTION WIDTH 14.4 % (11.5-14.5); WHITE BLOOD COUNT 10.8 K/uL (4.8-10.8)
[2017-11-16] MEDS: Insulin Lispro (humaLOG) 100 Units/ml Inj SC SCH ×7 (06:40→22:09)
[2017-11-16 06:41] LABS: BLOOD UREA NITROGEN 33 mg/dl (9-20); CALCIUM 8.5 mg/dL (8.4-10.2); GFR AFRICAN-AMERICAN > 60; GFR NON-AFRICAN AMERICAN > 60
[2017-11-16] MEDS: Multivitamin With Minerals Tab PO SCH (09:05)
--- NOTE | 2017-11-16 12:01 | CP.PCM.PN ---
Subjective - Date & Time of Evaluation Date of Evaluation: 11/16/17 Time of Evaluation: 07:30 - Subjective Subjective: Pt was seen and evaluated at bedside this am. Sitting comfortably in bed, in no acute distress. There were 2 central processing technician called for him yesterday due to elevated to 200s systolic BP, and his BP was lowered during the central processing technician. This morning BP 140s/ 80s. Pt reports no headache at this time. Objective - Vital Signs/Intake and Output Vital Signs (last 24 hours): Temp Pulse Resp BP Pulse Ox 97.7 F 75 18 146/82 95 11/16/17 07:47 11/16/17 07:47 11/16/17 07:47 11/16/17 07:47 11/16/17 07:47 - Medications Medications: Current Medications Acetaminophen (Tylenol 325mg Tab) 650 mg PO Q6 PRN PRN Reason: Headache Last Admin: 11/13/17 23:39 Dose: 650 mg Aspirin (Ecotrin) 81 mg PO DAILY [facility] Last Admin: 11/16/17 09:03 Dose: 81 mg Atorvastatin Calcium (Lipitor) 10 mg PO DAILY [facility] Last Admin: 11/16/17 09:05 Dose: 10 mg Clopidogrel Bisulfate (Plavix) 75 mg PO DAILY [facility] Last Admin: 11/16/17 09:05 Dose: 75 mg Dextrose (Dextrose 50% Inj) 0 ml IV STAT PRN; Protocol PRN Reason: Hypoglycemia Protocol Dextrose (Glutose 15) 0 gm PO ONCE PRN; Protocol PRN Reason: Hypoglycemia Protocol Docusate Sodium (Colace) 100 mg PO BID [facility] Last Admin: 11/16/17 08:59 Dose: 100 mg Enoxaparin Sodium (Lovenox) 40 mg SC HS [facility] PRN Reason: Protocol Last Admin: 11/15/17 21:32 Dose: 40 mg Glucagon (Glucagen Diagnostic Kit) 0 mg IM STAT PRN; Protocol PRN Reason: Hypoglycemia Protocol Hydrochlorothiazide (Microzide) 12.5 mg PO DAILY [facility] Last Admin: 11/16/17 09:05 Dose: 12.5 mg Insulin Detemir (Levemir) 16 units SC HS [facility] Insulin Human Lispro (Humalog) 0 units SC ACHS [facility] PRN Reason: Protocol Last Admin: 11/16/17 06:40 Dose: 4 units Insulin Human Lispro (Humalog) 5 units SC ACTID [facility] Last Admin: 11/16/17 09:04 Dose: 5 u Metformin HCl (Glucophage) 1,000 mg PO BIDWM [facility] Last Admin: 11/16/17 09:03 Dose: 1,000 mg Multivitamins/Minerals (Therapeutic-M Tab) 1 tab PO DAILY [facility] Last Admin: 11/16/17 09:05 Dose: 1 tab - Labs Labs: 11/16/17 04:41 11/16/17 04:41 PT 9.4 Seconds (9.8-13.1) L 11/13/17 13:36 INR 0.9 (0.9-1.2) 11/13/17 13:36 APTT 29.4 Seconds (25.6-37.1) 11/13/17 13:36 - Constitutional Appears: Non-toxic, No Acute Distress - Head Exam Head Exam: NORMAL INSPECTION - Eye Exam Eye Exam: Normal appearance - ENT Exam ENT Exam: Mucous Membranes Moist - Respiratory Exam Respiratory Exam: Clear to Ausculation Bilateral, NORMAL BREATHING PATTERN - Cardiovascular Exam Cardiovascular Exam: REGULAR RHYTHM, +S1, +S2 - GI/Abdominal Exam GI & Abdominal Exam: Soft, Normal Bowel Sounds - Extremities Exam Extremities Exam: absent: Calf Tenderness, Pedal Edema - Back Exam Back Exam: NORMAL INSPECTION - Neurological Exam Neurological Exam: Alert, Awake, Oriented x3 Neuro motor strength exam: Left Upper Extremity: 5, Right Upper Extremity: 5, Left Lower Extremity: 5, Right Lower Extremity: 5 Additional comments: no focal neuro deficits - Psychiatric Exam Psychiatric exam: Normal Affect, Normal Mood - Skin Skin Exam: Dry, Intact, Normal Color, Warm Assessment and Plan - Assessment and Plan (Free Text) Assessment: 62 yo M, PMH HTN, DM2, admitted due to subacute infarct, with uncontrolled BP; BP is being monitored. Plan: # Subacute ischemic stroke, embolic vs thrombotic - Neuro consult: Dr. Pereyra's note states pt has suffered from subacute ischemic stroke involving left frontal lobe, has right carotid stenosis with right eye blurry vision. - Neuro recs: tele, echo w/ bubble study (completed), carotid doppler (pending) , aspirin 81 mg daily indefinitely, plavix 75 mg for 21 days (today is day 3), lipitor 10 mg daily, IV NS @ 100ml/hr for 24 hrs (completed) - Carotid doppler pending - Past/completed imaging: - Head CT: No intracranial mass, hemorrhage or evidence of acute infarct. - Brain MRI w/o contrast: acute or subacute lacunae is identified in left frontal lobe. Limited age-related neuro degenerative changes are otherwise identified. No mass effect or suspicious extra-axial fluid collection. No definite intracranial hemorrhage. - Brain MRA: No definite significant stenosis or occlusion identified with symmetric blood flow identified within intracranial arterial circulation. - Neck MRA: A moderate stenosis suggested at right ICA origin extending from right catorid bulb. Consider correlation with carotid u/s. No significant stenosis otherwise at right CCA or ICA. No significant stenosis at left CCA or ICA. # HTN - Permissive htn under 200 systolic - Several episodes yesterday of systolic BP over 200, possibly due to steroids for headache vs increased volume due to receiving fluids - Monitor BP - Today lisinopril 10 mg if BP elevated in afternoon # Headache - Dr. Pereyra: headache may be caused by stroke or could be independent;s/p tx with decadron 10 mg IV, as well as magnesium sulfate 2gm IV. - Relief with 650 mg acetaminophen - Possibly due to poor htn control # Vision changes - Opthalmology consult: Dr. Fraser - stated pt can be seen outpatient # Diabetes Mellitus, type 2 - Poor follow up - Medication noncompliant, taking 's medications; states he takes 1000 mg metformin daily and 20U of unspecified insulin - HbA1c: 10.3 - Levemir 16U SC nightly - Insulin lispro 5U SC AC TID - Accuchecks - Insulin coverage - Hypoglycemia protocol - TSH wnl # Hyperlipidemia - Total cholesterol 205, LDL 81, HDL 23, Triglycerides 432 - Lipitor 10 mg as per neuro # DVT Prophylaxis - Lovenox 40 mg SC HS, discussed w/ Dr. Pereyra
--- NOTE | 2017-11-16 13:24 | CP.PCM.PN ---
Subjective - Date & Time of Evaluation Date of Evaluation: 11/16/17 Time of Evaluation: 13:23 - Subjective Subjective: Mr. Lamas was seen and examineda t the bedside. He is alert, oriented in all spheres. He denies any headache, dizziness, blurred vision, diplopia. He claims of his vision being improved since admission. He is able to follow all commands. Echocardiogram showed normal LV function with impaired diastolic relaxation.There was no untoward events overnight. Objective - Vital Signs/Intake and Output Vital Signs (last 24 hours): Temp Pulse Resp BP Pulse Ox 97.5 F L 79 18 149/84 99 11/16/17 12:00 11/16/17 12:00 11/16/17 12:00 11/16/17 12:00 11/16/17 12:00 - Medications Medications: Current Medications Acetaminophen (Tylenol 325mg Tab) 650 mg PO Q6 PRN PRN Reason: Headache Last Admin: 11/13/17 23:39 Dose: 650 mg Aspirin (Ecotrin) 81 mg PO DAILY [facility] Last Admin: 11/16/17 09:03 Dose: 81 mg Atorvastatin Calcium (Lipitor) 10 mg PO DAILY [facility] Last Admin: 11/16/17 09:05 Dose: 10 mg Clopidogrel Bisulfate (Plavix) 75 mg PO DAILY [facility] Last Admin: 11/16/17 09:05 Dose: 75 mg Dextrose (Dextrose 50% Inj) 0 ml IV STAT PRN; Protocol PRN Reason: Hypoglycemia Protocol Dextrose (Glutose 15) 0 gm PO ONCE PRN; Protocol PRN Reason: Hypoglycemia Protocol Docusate Sodium (Colace) 100 mg PO BID [facility] Last Admin: 11/16/17 08:59 Dose: 100 mg Enoxaparin Sodium (Lovenox) 40 mg SC HS [facility] PRN Reason: Protocol Last Admin: 11/15/17 21:32 Dose: 40 mg Glucagon (Glucagen Diagnostic Kit) 0 mg IM STAT PRN; Protocol PRN Reason: Hypoglycemia Protocol Hydrochlorothiazide (Microzide) 12.5 mg PO DAILY [facility] Last Admin: 11/16/17 09:05 Dose: 12.5 mg Insulin Detemir (Levemir) 16 units SC HS [facility] Insulin Human Lispro (Humalog) 0 units SC ACHS [facility] PRN Reason: Protocol Last Admin: 11/16/17 12:57 Dose: 2 units Insulin Human Lispro (Humalog) 5 units SC ACTID [facility] Last Admin: 11/16/17 12:58 Dose: 5 u Metformin HCl (Glucophage) 1,000 mg PO BIDWM [facility] Last Admin: 11/16/17 09:03 Dose: 1,000 mg Multivitamins/Minerals (Therapeutic-M Tab) 1 tab PO DAILY [facility] Last Admin: 11/16/17 09:05 Dose: 1 tab - Labs Labs: 11/16/17 04:41 11/16/17 04:41 PT 9.4 Seconds (9.8-13.1) L 11/13/17 13:36 INR 0.9 (0.9-1.2) 11/13/17 13:36 APTT 29.4 Seconds (25.6-37.1) 11/13/17 13:36 - Constitutional Appears: No Acute Distress - Head Exam Head Exam: NORMAL INSPECTION - Neurological Exam Neurological Exam: Alert, Awake, Oriented x3 Neuro motor strength exam: Left Upper Extremity: 5, Right Upper Extremity: 5, Left Lower Extremity: 5, Right Lower Extremity: 5 Additional comments: He is alert, oriented in all sphere, follows commands. Sensation remains intact. Assessment and Plan (1) Ischemic stroke Assessment & Plan: Case discussed with DR. Pereyra, continue all current medical, physical, and occupational therapies. Pending carotid doppler results. Recommend blood pressure control and glycemic control. Status: Acute
--- NOTE | 2017-11-16 14:16 | US ---
PROCEDURE: Duplex ultrasound of the carotid and vertebral arteries. HISTORY: Vision changes COMPARISON: Correlation made with MRA neck 11/13/2017. TECHNIQUE: Grayscale and duplex Doppler evaluation of the cervical carotid and vertebral arteries were performed. The common carotid, carotid bifurcations and cervical ICA and proximal ECA were evaluated. The vertebral arteries were evaluated for gross patency and direction. FINDINGS: RIGHT CAROTID ARTERIES: Partially calcified atherosclerotic plaque seen in the right carotid bifurcation and proximal internal carotid artery. Findings suggest velocity measurements based on peak systolic velocity within the left internal carotid artery Right ICA velocity = 80.0 cm/ S Right CCA velocity = 84.6 cm/S ICA/CCA Ratio: 1.3 LEFT CAROTID ARTERIES: Partially calcified atherosclerotic plaque in the left carotid bifurcation and proximal internal carotid artery present. Peak systolic velocity within the internal carotid artery borders between mild and moderate stenosis. Left ICA velocity = 93.0 cm/S Left CCA velocity = 109 cm /S. ICA/CCA Ratio: 1.0 VERTEBRAL ARTERIES: Right Vertebral Artery: Patent. Antegrade flow. Left Vertebral Artery: Patent. Antegrade flow. OTHER FINDINGS: None. IMPRESSION: Atherosclerotic plaque changes both carotid bifurcations and proximal internal carotid arteries. Velocity measurements suggest mild narrowing in the right internal carotid artery and borderline mild to moderate narrowing left internal carotid artery as above
[2017-11-16] MEDS ORDERED: Insulin Detemir 100 Units/ml Inj SC SCH (22:00)
[2017-11-16] MEDS: Enoxaparin 40 mg Syringe SC SCH (22:10)
[2017-11-17] MEDS: Insulin Lispro (humaLOG) 100 Units/ml Inj SC SCH ×6 (06:40→16:43)
[2017-11-17] MEDS: Multivitamin With Minerals Tab PO SCH (08:34)
--- NOTE | 2017-11-17 09:05 | CP.PCM.PN ---
Subjective - Date & Time of Evaluation Date of Evaluation: 11/17/17 Time of Evaluation: 09:01 - Subjective Subjective: Mr. Lamas was seen and examined at the bedside. He is alert, oriented in all spheres. He denies any headache, dizzinessm lightheadedness, diplopia, nause, or vomiting. He is able to answer questions appropriately and follows commands. Carotid doppler showed atherosclerotic plaque changes both carotid bifurcations and proximal ICA. Velocity measurements suggest mild narrowing in the right ICA and borderline mild to moderate narrowing left ICA.There was no untoward events overnight. Objective - Vital Signs/Intake and Output Vital Signs (last 24 hours): Temp Pulse Resp BP Pulse Ox 97.5 F L 71 18 153/88 H 99 11/17/17 07:57 11/17/17 07:57 11/17/17 07:57 11/17/17 07:57 11/17/17 07:57 - Medications Medications: Current Medications Acetaminophen (Tylenol 325mg Tab) 650 mg PO Q6 PRN PRN Reason: Headache Last Admin: 11/13/17 23:39 Dose: 650 mg Aspirin (Ecotrin) 81 mg PO DAILY [facility] Last Admin: 11/17/17 08:33 Dose: 81 mg Atorvastatin Calcium (Lipitor) 10 mg PO DAILY [facility] Last Admin: 11/17/17 08:34 Dose: 10 mg Clopidogrel Bisulfate (Plavix) 75 mg PO DAILY [facility] Last Admin: 11/17/17 08:34 Dose: 75 mg Dextrose (Dextrose 50% Inj) 0 ml IV STAT PRN; Protocol PRN Reason: Hypoglycemia Protocol Dextrose (Glutose 15) 0 gm PO ONCE PRN; Protocol PRN Reason: Hypoglycemia Protocol Docusate Sodium (Colace) 100 mg PO BID [facility] Last Admin: 11/17/17 08:33 Dose: 100 mg Enalapril Maleate (Vasotec) 10 mg PO ONCE ONE Stop: 11/17/17 19:56 Last Admin: 11/16/17 20:30 Dose: 10 mg Enalapril Maleate (Vasotec) 5 mg PO Q12 [facility] Last Admin: 11/17/17 08:35 Dose: 5 mg Enoxaparin Sodium (Lovenox) 40 mg SC HS [facility] PRN Reason: Protocol Last Admin: 11/16/17 22:10 Dose: 40 mg Glucagon (Glucagen Diagnostic Kit) 0 mg IM STAT PRN; Protocol PRN Reason: Hypoglycemia Protocol Insulin Detemir (Levemir) 16 units SC HS [facility] Last Admin: 11/16/17 22:09 Dose: 16 units Insulin Human Lispro (Humalog) 0 units SC ACHS [facility] PRN Reason: Protocol Last Admin: 11/17/17 06:40 Dose: Not Given Insulin Human Lispro (Humalog) 5 units SC ACTID [facility] Last Admin: 11/16/17 17:41 Dose: 5 u Metformin HCl (Glucophage) 1,000 mg PO BIDWM [facility] Last Admin: 11/17/17 08:34 Dose: 1,000 mg Multivitamins/Minerals (Therapeutic-M Tab) 1 tab PO DAILY [facility] Last Admin: 11/17/17 08:34 Dose: 1 tab - Labs Labs: 11/16/17 04:41 11/16/17 04:41 PT 9.4 Seconds (9.8-13.1) L 11/13/17 13:36 INR 0.9 (0.9-1.2) 11/13/17 13:36 APTT 29.4 Seconds (25.6-37.1) 11/13/17 13:36 - Constitutional Appears: No Acute Distress - Head Exam Head Exam: NORMAL INSPECTION - Neurological Exam Neurological Exam: Alert, Awake, Oriented x3 Neuro motor strength exam: Left Upper Extremity: 5, Right Upper Extremity: 5, Left Lower Extremity: 5, Right Lower Extremity: 5 Additional comments: Neurological unchanged from previous examination. Assessment and Plan (1) Ischemic stroke Assessment & Plan: Case discussed with Dr. Draper, continue all current medical regimen including dual antiplatelet and statin. Continue physical and occupational therapies, blood pressure control and glycemic control are also recommended. Recommend to follow up with an outpatient neurologist upon discharge. Status: Acute
--- NOTE | 2017-11-17 11:26 | CP.PCM.DIS ---
Provider - Provider Date of Admission: 11/13/17 15:41 Attending physician: Daina Daniel MD Primary care physician: [facility] Consults: Neurology- Dr. Pereyra Ophthalmology- Dr. Fraser Time Spent in preparation of Discharge (in minutes): 45 Diagnosis - Discharge Diagnosis (1) Ischemic stroke Status: Acute Priority: High Comment: seen by neurologists Dr. Pereyra and Dr. Draper; pt needs follow up with neurology in 2 weeks. Other recs include plavix 75mg daily for total of 21 days , aspirin 81 mg daily indefinitely, lipitor 10 mg daily. (2) DM2 (diabetes mellitus, type 2) Status: Chronic Comment: Uncontrolled; HbA1c 10.3. Had been taking improper dose of insulin; total daily dose calculated and adjusted throughout hospital stay and pt given insulin prescription on discharge. (3) Headache Status: Resolved (4) HTN (hypertension) Status: Chronic Comment: Monitored throughout hospital stay; pt stated he had been taking family member's medicine; strongly advised against doing that. lisinopril 20mg daily on discharge. (5) Transient vision disturbance of right eye Status: Resolved Comment: Ophthalmology was consulted - Dr. Fraser called unit back and stated pt can be seen outpatient. Vision disturbance currently resolved. Hospital Course - Lab Results Lab Results: Most Recent Lab Values WBC 10.8 K/uL (4.8-10.8) 11/16/17 04:41 RBC 4.48 Mil/uL (4.40-5.90) 11/16/17 04:41 Hgb 12.9 g/dL (12.0-18.0) 11/16/17 04:41 Hct 38.6 % (35.0-51.0) 11/16/17 04:41 MCV 86.1 fl (80.0-94.0) 11/16/17 04:41 MCH 28.8 pg (27.0-31.0) 11/16/17 04:41 MCHC 33.5 g/dL (33.0-37.0) 11/16/17 04:41 RDW 14.4 % (11.5-14.5) 11/16/17 04:41 Plt Count 216 K/uL (130-400) 11/16/17 04:41 MPV 10.0 fl (7.2-11.7) 11/14/17 04:45 Neut % (Auto) 67.8 % (50.0-75.0) 11/14/17 04:45 Lymph % (Auto) 24.9 % (20.0-40.0) 11/14/17 04:45 Barnes % (Auto) 4.2 % (0.0-10.0) 11/14/17 04:45 Eos % (Auto) 2.2 % (0.0-4.0) 11/14/17 04:45 Baso % (Auto) 0.9 % (0.0-2.0) 11/14/17 04:45 Neut # (Auto) 7.6 K/uL (1.8-7.0) H 11/14/17 04:45 Lymph # (Auto) 2.8 K/uL (1.0-4.3) 11/14/17 04:45 Barnes # (Auto) 0.5 K/uL (0.0-0.8) 11/14/17 04:45 Eos # (Auto) 0.2 K/uL (0.0-0.7) 11/14/17 04:45 Baso # (Auto) 0.1 K/uL (0.0-0.2) 11/14/17 04:45 PT 9.4 Seconds (9.8-13.1) L 11/13/17 13:36 INR 0.9 (0.9-1.2) 11/13/17 13:36 APTT 29.4 Seconds (25.6-37.1) 11/13/17 13:36 Sodium 133 mmol/l (132-148) 11/16/17 04:41 Potassium 4.5 MMOL/L (3.6-5.0) 11/16/17 04:41 Chloride 103 mmol/L (98-107) 11/16/17 04:41 Carbon Dioxide 20 mmol/L (22-30) L 11/16/17 04:41 Anion Gap 15 (10-20) 11/16/17 04:41 BUN 33 mg/dl (9-20) H 11/16/17 04:41 Creatinine 1.1 mg/dl (0.8-1.5) 11/16/17 04:41 Est GFR ( Amer) > 60 11/16/17 04:41 Est GFR (Non-Af Amer) > 60 11/16/17 04:41 POC Glucose (mg/dL) 108 mg/dL (65-110) 11/17/17 05:33 Random Glucose 307 mg/dL (75-110) H 11/16/17 04:41 Hemoglobin A1c 10.3 % (4.2-6.5) H 11/14/17 04:45 Calcium 8.5 mg/dL (8.4-10.2) 11/16/17 04:41 Total Bilirubin 0.3 mg/dl (0.2-1.3) 11/15/17 05:05 AST 21 U/L (17-59) 11/15/17 05:05 ALT 27 U/L (21-72) 11/15/17 05:05 Alkaline Phosphatase 102 U/L (38-126) 11/15/17 05:05 Troponin I 0.0140 ng/mL (0.00-0.120) 11/13/17 13:36 Total Protein 5.6 G/DL (6.3-8.2) L 11/15/17 05:05 Albumin 2.7 g/dL (3.5-5.0) L 11/15/17 05:05 Globulin 3.0 gm/dL (2.2-3.9) 11/15/17 05:05 Albumin/Globulin Ratio 0.9 (1.0-2.1) L 11/15/17 05:05 Triglycerides 432 mg/DL (0-149) H D 11/14/17 04:45 Cholesterol 205 mg/dL (0-199) H 11/14/17 04:45 LDL Cholesterol Direct 81 mg/dL (0-129) 11/14/17 04:45 HDL Cholesterol 23 MG/DL (30-70) L 11/14/17 04:45 TSH 3rd Generation 0.80 mIU/ML (0.46-4.68) 11/14/17 04:45 - Hospital Course Hospital Course: Mr. Lamas is a 62 yo M with PMH DM2, HTN who presented to the ED and was admitted due to headache and vision disturbances. Neurology was consulted, and pt was found to have a subacute ischemic stroke (thrombotic vs embolic). Neuro ( Dr. Pereyra) recommendations appreciated - echo w/ bubble study, carotid u/s (mild -moderate bilateral ICA stenosis), pt placed on plavix 75 mg (today is day 4 ), aspirin 81 mg indefinitely, lipitor 10 mg daily, and PT/OT eval (did not recommend services). Ophthalmology was consulted- Dr. Fraser stated pt can be seen outpt. Pt's blood pressure was monitored- permissive hypertension was allowed to systolic up to 200s until the day before admission; was lowered if BP was above that. Recommendations from neuro today are to have systolic below/ around 150, so pt will be discharged with lisinopril 20mg daily. His diabetes is uncontrolled as evidenced by HbA1c of 10.3 and elevated accucheks on arrival of almost 300; his total daily dose has been calculated and adjusted throughout his stay, and he will be discharged with novolog prescription. He will follow up at [facility] on November 20, 2017 at 11:20 am. Pt was given a print-out of all of his medications with instructions on how to take them, written in Wolof, and they were discussed with him at length in the presence of his and daughter, who along with the patient verbalized understanding of the medication regimen. Discharge Exam - Head Exam Head Exam: NORMAL INSPECTION - Eye Exam Eye Exam: EOMI, Normal appearance, PERRL - Neck Exam Neck exam: Full Rom - Respiratory Exam Respiratory Exam: Clear to PA & Lateral, NORMAL BREATHING PATTERN, UNREMARKABLE - Cardiovascular Exam Cardiovascular Exam: REGULAR RHYTHM, +S1, +S2 - GI/Abdominal Exam GI & Abdominal Exam: Normal Bowel Sounds, Soft. absent: Distended, Tenderness - Extremities Exam Extremities exam: normal capillary refill, pedal pulses present - Back Exam Back exam: NORMAL INSPECTION - Neurological Exam Neurological exam: Alert, Altered, Normal Gait, Oriented x3 - Psychiatric Exam Psychiatric exam: Normal Affect, Normal Mood - Skin Skin Exam: Dry, Normal Color, Warm Discharge Plan - Discharge Medications Prescriptions: Aspirin [Ecotrin] 81 mg PO DAILY #30 tab Atorvastatin [Lipitor] 10 mg PO QPM #30 tab Clopidogrel [Plavix] 75 mg PO DAILY #18 tab Insulin Aspart/Insulin Aspar [Novolog Mix 70/30 (70/30 units/ml)] 22 units SC QAM #1 vial Insulin Aspart/Insulin Aspar [Novolog Mix 70/30 (70/30 units/ml)] 11 units SC QPM #1 vial Lisinopril [Zestril] 20 mg PO DAILY #30 tab MetFORMIN [glucoPHAGE] 1,000 mg PO BIDWM #60 tab - Follow Up Plan Condition: FAIR Disposition: HOME/ ROUTINE Instructions: High Blood Pressure in Adults, Diabetes Type 2 (DC) Additional Instructions: Please follow up at [facility] at [address] [place] [address] The clinic phone number is [phone]. Your appt is November 20, 2017 at 11:20 am. Referrals: [facility] [Provider Group] Clinical Quality Measures - CQM - Stroke Antithrombotic Prescribed: Yes Anticoagulation Prescribed for Atrial Flutter, Atrial Fibrillation and History of:: Not Applicable Statin prescribed: Yes
--- NOTE | 2017-11-17 12:18 | CARD ---
APPROVED REPORT EKG Measurement Heart [id number] <Conclusion> Normal sinus rhythm Normal ECG
[2017-11-17 15:37] VITALS: RESP 20
[2017-11-17 19:33] VITALS: BP 124/82; PULSE 90; TEMP 98.5; O2SAT 99
== END 2017-11-17 19:52 | disposition home or self-care (01) | DRG 65 ==
LOC: H.ER 12:46 → H.ERHOLD 15:41 → H.TEL 18:17
PROVIDERS: ADMIT Family Medicine Geriatric Medicine; ATTEND Family Medicine Geriatric Medicine
PROC: 3E0234Z Introduction of Serum, Toxoid and Vaccine into Muscle, Percutaneous Approach (ICD-10-PCS; principal; 2017-11-13)
DX: I63.9 Cerebral infarction, unspecified (principal); I16.1 Hypertensive emergency; E11.65 Type 2 diabetes mellitus with hyperglycemia; I10 Essential (primary) hypertension; E78.00 Pure hypercholesterolemia, unspecified; E78.5 Hyperlipidemia, unspecified; Z87.891 Personal history of nicotine dependence; Z91.14 Patient's other noncompliance with medication regimen; H53.8 Other visual disturbances; I65.23 Occlusion and stenosis of bilateral carotid arteries; Z91.041 Radiographic dye allergy status; Z23 Encounter for immunization

== ENCOUNTER 2018-05-13 17:23 | Inpatient (IN) | payer MEDICAID, SELFPAY ==
[2018-05-13 18:10] LABS: BASO # 0.1 K/uL (0.0-0.2); BASO % 0.7 % (0.0-2.0); EOS # 0.2 K/uL (0.0-0.7); LYMPH # 1.6 K/uL (1.0-4.3); LYMPH % 13.1 % (20.0-40.0); MEAN CELL VOLUME 86.2 fl (80.0-94.0); MEAN CORPUSCULAR HEMOGLOBIN 28.9 pg (27.0-31.0); MEAN CORPUSCULAR HGB CONC 33.5 g/dL (33.0-37.0); MEAN PLATELET VOLUME 8.4 fl (7.2-11.7); MONO # 0.8 K/uL (0.0-0.8); MONO % 6.4 % (0.0-10.0); NEUT # 9.7 K/uL (1.8-7.0); NEUT % 77.8 % (50.0-75.0); NRBC % 0.1 % (0.0-0.0); RBC 4.16 Mil/uL (4.40-5.90); RED CELL DISTRIBUTION WIDTH 14.6 % (11.5-14.5); WHITE BLOOD COUNT 12.5 K/uL (4.8-10.8)
--- NOTE | 2018-05-13 18:20 | ED PDOC ---
Lower Extremity Pain/Injury Time Seen by Provider: 05/13/18 17:41 Chief Complaint (Nursing): Lower Extremity Problem/Injury Chief Complaint (Provider): Foot ulcer History Per: Patient History/Exam Limitations: no limitations Onset/Duration Of Symptoms: Days Current Symptoms Are (Timing): Still Present Additional History Per: Patient Additional Complaint(s): 63yo male with history of diabetes, comes to ER for evaluation of diabetic foot ulcer with pain, discharge, erythema and swelling to right 2nd toe. Patient reports a mild cough as well. He denies any fever, weakness, ankle or leg pain. Patient was evaluated by a manager tax 3 years ago for an amputation but has not had any evaluation since then. No other complaints. PMD: None provided Past Medical History Reviewed: Historical Data, Nursing Documentation, Vital Signs Vital Signs: Last Vital Signs Temp 98.5 F 05/13/18 17:35 Pulse 87 05/13/18 17:35 Resp 18 05/13/18 17:35 BP 135/86 05/13/18 17:35 Pulse Ox 99 05/13/18 17:35 - Medical History PMH: Diabetes, HTN, Hypercholesterolemia Denies: HIV, Chronic Kidney Disease - Surgical History Other surgeries: left foot amputation - Family History Family History: States: No Known Family Hx - Living Arrangements Living Arrangements: With Family - Immunization History Hx Influenza Vaccination: Yes - Home Medications Home Medications: Ambulatory Orders Medication Instructions Recorded Aspirin [Ecotrin] 81 mg PO DAILY #30 tab 11/17/17 Atorvastatin [Lipitor] 10 mg PO QPM #30 tab 11/17/17 Clopidogrel [Plavix] 75 mg PO DAILY #18 tab 11/17/17 Insulin Aspart/Insulin Aspar 11 units SC QPM #1 vial 11/17/17 [Novolog Mix 70/30 (70/30 units/ml)] Insulin Aspart/Insulin Aspar 22 units SC QAM #1 vial 11/17/17 [Novolog Mix 70/30 (70/30 units/ml)] Lisinopril [Zestril] 20 mg PO DAILY #30 tab 11/17/17 MetFORMIN [glucoPHAGE] 1,000 mg PO BIDWM #60 tab 11/17/17 - Allergies Allergies/Adverse Reactions: Allergies Allergy/AdvReac Type Severity Reaction Status Date / Time alendronate sodium Allergy RASH Verified 11/13/17 12:57 CT Scan PO Contrast Allergy RASH Uncoded 11/13/17 22:44 Review of Systems ROS Statement: Except As Marked, All Systems Reviewed And Found Negative Constitutional: Negative for: Fever, Chills Musculoskeletal: Positive for: Foot Pain (pain, swelling, erythema and discharge to right 2nd toe). Negative for: Leg Pain Neurological: Negative for: Weakness Physical Exam - Reviewed Nursing Documentation Reviewed: Yes Vital Signs Reviewed: Yes - Physical Exam Appears: Positive for: Non-toxic Head Exam: Positive for: ATRAUMATIC, NORMAL INSPECTION, NORMOCEPHALIC Skin: Positive for: Normal Color Eye Exam: Positive for: Normal appearance Neck: Positive for: Supple Cardiovascular/Chest: Positive for: Regular Rate, Rhythm Respiratory: Positive for: Normal Breath Sounds Gastrointestinal/Abdominal: Positive for: Normal Exam, Soft Back: Positive for: Normal Inspection Extremity: Positive for: Deformity (left foot s/p hallux amputation), Other ( right foot 2nd digit with erythema, ulceration, discharge and small eschar; right 3rd toe with erythema and discharge as well. Erythema tracking to distal plantar surface of right foot.) Neurologic/Psych: Positive for: Alert, Oriented. Negative for: Motor/Sensory Deficits - Laboratory Results Result Diagrams: 05/14/18 06:10 05/15/18 05:45 - ECG O2 Sat by Pulse Oximetry: 99 (RA) Pulse Ox Interpretation: Normal Medical Decision Making Medical Decision Making: Plan for labs, XR and podiatry consult. 1900 Labs reviewed revealing acute kidney injury compared to 11/2017. Patient evaluated by podiatry resident, and recommending admission for diabetic foot infection. Scribe Attestation: Documented by Nicole Arce, acting as a scribe for Carlos Bhatia DO. Provider Scribe Attestation: All medical record entries made by the Scribe were at my direction and personally dictated by me. I have reviewed the chart and agree that the record accurately reflects my personal performance of the history, physical exam, medical decision making, and the department course for this patient. I have also personally directed, reviewed, and agree with the discharge instructions and disposition. Disposition - Clinical Impression Clinical Impression: Acute kidney injury (nontraumatic), Diabetic foot infection - Patient ED Disposition Is Patient to be Admitted: No Counseled Patient/Family Regarding: Studies Performed, Diagnosis, Need For Followup - Disposition Disposition Time: 18:30 Condition: FAIR - Pt Status Changed To: Hospital Disposition Of: Inpatient - Admit Certification Admit to Inpatient:: After my assessment, the patient will require hospitalization for at least two midnights. This is because of the severity of symptoms shown, intensity of services needed, and/or the medical risk in this patient being treated as an outpatient. - POA Present On Arrival: Poor Glycemic Control
[2018-05-13 18:32] LABS: ALB/GLOB RATIO 1.4 (1.0-2.1); ALBUMIN 4.3 g/dL (3.5-5.0); CALCIUM 9.5 mg/dL (8.4-10.2)
--- NOTE | 2018-05-13 18:41 | RAD ---
Date of service: 05/13/2018 PROCEDURE: Right Foot Radiographs. HISTORY: 2/3 toe infection COMPARISON: None. FINDINGS: BONES: Normal. No fracture. JOINTS: Osteoarthritis IP 1. The remaining joint spaces and articular surfaces are preserved. No articular erosions. SOFT TISSUES: Normal. OTHER FINDINGS: None. IMPRESSION: No plain radiographic evidence of osteomyelitis. Osteoarthritis of the IP 1.
--- NOTE | 2018-05-13 18:41 | RAD ---
Date of service: 05/13/2018 HISTORY: SOB COMPARISON: 11/13/2017 FINDINGS: LUNGS: No active pulmonary disease. PLEURA: No significant pleural effusion identified, no pneumothorax apparent. CARDIOVASCULAR: Normal. OSSEOUS STRUCTURES: No significant abnormalities. VISUALIZED UPPER ABDOMEN: Normal. OTHER FINDINGS: None. IMPRESSION: No active disease.
--- NOTE | 2018-05-13 18:44 | CP.PCM.CON ---
History of Present Illness - History of Present Illness History of Present Illness: Podiatry consult notes for attending Dr. Kathleen: 63 y/o M patient PMH of DM, HTN and Hypercholestremia seen and evaluated at the ED for an ulcer right 2nd toe and a blister rigt 4th toe. Patient states that 4 days ago he started to develop this ulcer which started as a blister. He states that the ulcer went worse. patient denies any pain in the ulcer site. He states that there is drainage coming out from the ulcer site. Patient states that at the same time he developed blister in the inside of his right 4th toe. Patient states that he has contineous numbness and episodes of tingling and burning pain on both his feet. Patient denies any F/N/V/C or SOB. Patient denies any other pedal complaint at this time. Patient states that 3 years ago he had his left big toe amputated after having infection on it. PMH: DM, HTN and Hypercholestremia PSH: Left hallux partial amputation. Allergies: Alendronate sodium, CT scan PO contrast. Social Hx: Denies smoking or illicit drug use, Drink alcohol about 8 beers every 2-3 days. Review of Systems - Review of Systems Review of Systems: As per HPI Past Patient History - Infectious Disease Hx of Infectious Diseases: None - Past Medical History & Family History Past Medical History?: Yes - Past Social History Smoking Status: Former Smoker - CARDIAC Hx Hypercholesterolemia: Yes Hx Hypertension: Yes - PULMONARY Hx Respiratory Disorders: No - NEUROLOGICAL Hx Neurological Disorder: No - HEENT Hx HEENT Problems: No - RENAL Hx Chronic Kidney Disease: No - ENDOCRINE/METABOLIC Hx Diabetes Mellitus Type 2: Yes - HEMATOLOGICAL/ONCOLOGICAL Hx Human Immunodeficiency Virus (HIV): No - INTEGUMENTARY Hx Dermatological Problems: Yes Hx Cellulitis: Yes (left foot) - MUSCULOSKELETAL/RHEUMATOLOGICAL Hx Falls: No - GASTROINTESTINAL Hx Gastrointestinal Disorders: No - GENITOURINARY/GYNECOLOGICAL Hx Genitourinary Disorders: No - PSYCHIATRIC Hx Psychophysiologic Disorder: No Hx Substance Use: No - SURGICAL HISTORY Hx Surgeries: Yes Other/Comment: left great toe hallux amputation 2years ago - ANESTHESIA Hx Anesthesia: Yes Hx Anesthesia Reactions: No Meds Allergies/Adverse Reactions: Allergies Allergy/AdvReac Type Severity Reaction Status Date / Time alendronate sodium Allergy RASH Verified 11/13/17 12:57 CT Scan PO Contrast Allergy RASH Uncoded 11/13/17 22:44 Physical Exam - Constitutional Appears: Well, No Acute Distress - Head Exam Head Exam: ATRAUMATIC, NORMOCEPHALIC - Extremities Exam Additional comments: LE Focused exam: Vasc: DP/PT pulses are palpable 1/4. Cap refill < 3 sec in all digits. Temp gradient warm to warmer on the right side and warm to warm on the left side from proximal to distal. Erythema and minimal non pitting edema noted extending through the right 2nd digit and the medial siide of the 4th right digit. Neuro: Protective sensation diminished b/l. Derm: Ulcer noted on the tip of the right 2nd digit. measures 1 X 1 X 0.1. Minimal seropurulent drainage noted, no malodor, no tracking, no undermining, no probing to bone, no fluctuance. A ruptured blister in the medial side of the right 4th toe with no drainage or malodor noted. hyperkeratotic lesions noted in the tip of the left 2nd digit and right hallux lateral side. MSK: Muscle power intact 5/5 in all groups. Partially amputated left hallux. No pain on palpating the periulcerative area of the right 2nd toe and the blister area of the 4th toe. - Neurological Exam Neurological exam: Alert, Oriented x3 - Psychiatric Exam Psychiatric exam: Normal Affect, Normal Mood Results - Vital Signs Recent Vital Signs: Last Vital Signs Temp 98.5 F 05/13/18 17:35 Pulse 87 05/13/18 17:35 Resp 18 05/13/18 17:35 BP 135/86 05/13/18 17:35 Pulse Ox 99 05/13/18 18:23 - Labs Result Diagrams: 05/13/18 18:04 05/13/18 18:04 Labs: Laboratory Results - last 24 hr 05/13/18 05/13/18 05/13/18 17:56 18:04 18:04 WBC 12.5 H RBC 4.16 L Hgb 12.0 Hct 35.9 MCV 86.2 MCH 28.9 MCHC 33.5 RDW 14.6 H Plt Count 283 MPV 8.4 Neut % (Auto) 77.8 H Lymph % (Auto) 13.1 L [place] % (Auto) 6.4 Eos % (Auto) 2.0 Baso % (Auto) 0.7 Neut # (Auto) 9.7 H Lymph # (Auto) 1.6 [place] # (Auto) 0.8 Eos # (Auto) 0.2 Baso # (Auto) 0.1 Sodium 136 Potassium 5.4 H Chloride 105 Carbon Dioxide 20 L Anion Gap 16 BUN 55 H Creatinine 2.0 H Est GFR ( Amer) 41 Est GFR (Non-Af Amer) 34 POC Glucose (mg/dL) 141 H Random Glucose 160 H Calcium 9.5 Total Bilirubin 0.6 AST 30 ALT 28 Alkaline Phosphatase 129 H D Total Protein 7.2 Albumin 4.3 Globulin 3.0 Albumin/Globulin Ratio 1.4 Assessment & Plan - Assessment and Plan (Free Text) Assessment: 63 Y/O M patient seen and evaluated in the ED for infected ulcer right second toe and blister right 4th toe Plan: Patient seen and evaluated in the ED. Plan discussed in details with attending dr. Kathleen South Korean interpretor [id number] use for translation. Right foot X-ray reviewed and shows: There might be some erosions in the tip of the distal phalanx of the 2nd digit Chart, Labs and vitals reviewed; Afebrile, WBCs 12.5 Ordered ESR, CRP by the ED doctor. ESR is 32. Ordered wound culture and sent to the lab. Ordered MRI to be done after admission. Vancomycin 1 gm IV and Zosyn #.375 gm stat dose ordered for the patient by the ED doctor. ulcer dressed using bacitracin, 4X4 gauze and kerlix. Change the dressing daily using Bactroban and DSD. Patient will be admitted to the hospital by the primary team. Podiatry will follow up the patient while in house - Date & Time Date: 05/13/18 Time: 18:42
[2018-05-13] MEDS ORDERED: Piperacillin/Tazobact 3.375 GM in Sodium Chloride 0.9% 100 ML IVPB STA (19:02)
[2018-05-13] MEDS ORDERED: Sodium Chloride 0.9% 1,000 ML IV STA (19:05)
[2018-05-13] MEDS ORDERED: Piperacillin/Tazobact 3.375 gm Inj IVPB ONE (19:09)
--- NOTE | 2018-05-13 20:11 | CP.PCM.HP ---
<Marija Morgan - Last Filed: 05/13/18 22:40> History of Present Illness - History of Present Illness History of Present Illness: 63 yo ,m, PMhx/o DM, HTN, HLD presents to ED c/o right foot ulcer on right 2nd toe and a blister right 4th toe noticed 4 days ago associated with mild swelling and odorless discharge. He reports his shoes got wet and he was walking on wet shoes and it resulted in a blister on his right foot. He also reports b/l chronic numbness and tingling over b/l foot. Patient denies fever, cough, SOB, chest pain, pedal edema, polyuria, polydipsia, dysuria, difficulty walking. He reports left hallux amputation about 4 years ago. Patient was seen in clinic today and referred to ED for evaluation and r/o osteomyelitis. On evaluation in ED patient denies pain, and was already seen by Podiatry PMD: [facility]. Seen today by DR lagunas PMH: DM, HTN and Hypercholesterolemia PSH: Left hallux partial amputation. Allergies: Alendronate sodium, CT scan PO contrast. Social Hx: Denies smoking or illicit drug use, Drink alcohol about 8 beers every 2-3 days. Code status: full code Ed course: VS: normal Labs: CBC leukocytosis 12.5 CMP: BUN/Cr 55/2.0 K: 5.4 Imaging: XR: right foot: no osteomyelitis CXR: no active disease Meds : Zosyn, Vanco x 1 dose, Iv fluids 1 L NS Present on Admission - Present on Admission Any Indicators Present on Admission: Yes History of DVT/PE: No History of Uncontrolled Diabetes: Yes Urinary Catheter: No Decubitus Ulcer Present: No Review of Systems - Review of Systems All systems: reviewed and no additional remarkable complaints except - Integumentary Integumentary: Skin Ulcer (right foot ) Past Patient History - Infectious Disease Hx of Infectious Diseases: None - Past Medical History & Family History Past Medical History?: Yes - Past Social History Smoking Status: Former Smoker - CARDIAC Hx Hypercholesterolemia: Yes Hx Hypertension: Yes - PULMONARY Hx Respiratory Disorders: No - NEUROLOGICAL Hx Neurological Disorder: No - HEENT Hx HEENT Problems: No - RENAL Hx Chronic Kidney Disease: No - ENDOCRINE/METABOLIC Hx Diabetes Mellitus Type 2: Yes - HEMATOLOGICAL/ONCOLOGICAL Hx Human Immunodeficiency Virus (HIV): No - INTEGUMENTARY Hx Dermatological Problems: Yes Hx Cellulitis: Yes (left foot) - MUSCULOSKELETAL/RHEUMATOLOGICAL Hx Falls: No - GASTROINTESTINAL Hx Gastrointestinal Disorders: No - GENITOURINARY/GYNECOLOGICAL Hx Genitourinary Disorders: No - PSYCHIATRIC Hx Psychophysiologic Disorder: No Hx Substance Use: No - SURGICAL HISTORY Hx Surgeries: Yes Other/Comment: left great toe hallux amputation 2years ago - ANESTHESIA Hx Anesthesia: Yes Hx Anesthesia Reactions: No Meds Allergies/Adverse Reactions: Allergies Allergy/AdvReac Type Severity Reaction Status Date / Time alendronate sodium Allergy RASH Verified 11/13/17 12:57 CT Scan PO Contrast Allergy RASH Uncoded 11/13/17 22:44 Physical Exam - Constitutional Appears: Non-toxic, No Acute Distress - Head Exam Head Exam: ATRAUMATIC, NORMOCEPHALIC - Eye Exam Eye Exam: Normal appearance - ENT Exam ENT Exam: Mucous Membranes Moist - Respiratory Exam Respiratory Exam: Clear to Auscultation Bilateral. absent: Rhonchi, Wheezes - Cardiovascular Exam Cardiovascular Exam: REGULAR RHYTHM, +S1, +S2 - GI/Abdominal Exam GI & Abdominal Exam: Normal Bowel Sounds, Soft. absent: Tenderness - Extremities Exam Extremities exam: Negative for: calf tenderness Additional comments: Ulcer noted on the tip of the right 2nd digit. measures 1 X 1 X 0.1. Minimal seropurulent drainage noted, no malodor, no tracking, no undermining, no probing to bone, no fluctuance. A ruptured blister in the medial side of the right 4th toe with no drainage or malodor noted. hyperkeratotic lesions noted in the tip of the left 2nd digit and right hallux lateral side. - Back Exam Back exam: NORMAL INSPECTION - Neurological Exam Neurological exam: Alert, Oriented x3 - Psychiatric Exam Psychiatric exam: Normal Affect, Normal Mood - Skin Additional comments: Ulcer noted on the tip of the right 2nd digit. measures 1 X 1 X 0.1. Minimal seropurulent drainage noted, no malodor, no tracking, no undermining, no probing to bone, no fluctuance. A ruptured blister in the medial side of the right 4th toe with no drainage or malodor noted. hyperkeratotic lesions noted in the tip of the left 2nd digit and right hallux lateral side. Results - Vital Signs Recent Vital Signs: Last Vital Signs Temp 98.5 F 05/13/18 17:35 Pulse 87 05/13/18 17:35 Resp 18 05/13/18 17:35 BP 135/86 05/13/18 17:35 Pulse Ox 99 05/13/18 19:06 - Labs Result Diagrams: 05/13/18 18:04 05/13/18 18:04 Labs: Laboratory Results - last 24 hr 05/13/18 05/13/18 05/13/18 17:56 18:04 18:04 WBC 12.5 H RBC 4.16 L Hgb 12.0 Hct 35.9 MCV 86.2 MCH 28.9 MCHC 33.5 RDW 14.6 H Plt Count 283 MPV 8.4 Neut % (Auto) 77.8 H Lymph % (Auto) 13.1 L [place] % (Auto) 6.4 Eos % (Auto) 2.0 Baso % (Auto) 0.7 Neut # (Auto) 9.7 H Lymph # (Auto) 1.6 [place] # (Auto) 0.8 Eos # (Auto) 0.2 Baso # (Auto) 0.1 ESR 32 H Sodium 136 Potassium 5.4 H Chloride 105 Carbon Dioxide 20 L Anion Gap 16 BUN 55 H Creatinine 2.0 H Est GFR ( Amer) 41 Est GFR (Non-Af Amer) 34 POC Glucose (mg/dL) 141 H Random Glucose 160 H Calcium 9.5 Total Bilirubin 0.6 AST 30 ALT 28 Alkaline Phosphatase 129 H D Total Protein 7.2 Albumin 4.3 Globulin 3.0 Albumin/Globulin Ratio 1.4 Assessment & Plan - Assessment and Plan (Free Text) Plan: 63 yo ,m, PMhx/o DM, HTN, HLD admitted for diabetic foot ulcer 1) Diabetic right foot ulcer -Xr rigth foot reviewed: no osteolielytis but There might be some erosions in the tip of the distal phalanx of the 2nd digit -ESR 32 -Podiatry consult appreciated: c/w Abx Zosyn/vanco, wound care -c/w vanco/zosyn renal dose -f/u wound cx -f/u MRI 2) DM -uncontrolled -last Hgba1c 10.3 -f/u hgba1c -SSI, hypoglycemia protocol 3) Prerenal Azotemia -IV fluids NS 110 ml/h -f/u cbc, cmp 4) Hyperkalemia -H 5.4 -Kayexalate PO 30 gm -f/u cmp 5) HTN -c/w home meds Lisinopril 6) HLD c/w Lipitor 10 mg daily -f/u lipid panel 7) DVT prophylaxis Heparin 5000 U Q8h SC <Fran Colin - Last Filed: 05/14/18 01:46> Results - Vital Signs Recent Vital Signs: Last Vital Signs Temp 97.7 F 05/14/18 00:31 Pulse 85 05/14/18 00:31 Resp 20 05/14/18 00:31 BP 185/100 H 05/14/18 00:31 Pulse Ox 98 05/14/18 00:31 - Labs Result Diagrams: 05/13/18 18:04 05/13/18 18:04 Labs: Laboratory Results - last 24 hr 05/13/18 05/13/18 05/13/18 17:56 18:04 18:04 WBC 12.5 H RBC 4.16 L Hgb 12.0 Hct 35.9 MCV 86.2 MCH 28.9 MCHC 33.5 RDW 14.6 H Plt Count 283 MPV 8.4 Neut % (Auto) 77.8 H Lymph % (Auto) 13.1 L [place] % (Auto) 6.4 Eos % (Auto) 2.0 Baso % (Auto) 0.7 Neut # (Auto) 9.7 H Lymph # (Auto) 1.6 [place] # (Auto) 0.8 Eos # (Auto) 0.2 Baso # (Auto) 0.1 ESR 32 H Sodium 136 Potassium 5.4 H Chloride 105 Carbon Dioxide 20 L Anion Gap 16 BUN 55 H Creatinine 2.0 H Est GFR ( Amer) 41 Est GFR (Non-Af Amer) 34 POC Glucose (mg/dL) 141 H Random Glucose 160 H Calcium 9.5 Total Bilirubin 0.6 AST 30 ALT 28 Alkaline Phosphatase 129 H D Total Protein 7.2 Albumin 4.3 Globulin 3.0 Albumin/Globulin Ratio 1.4 05/13/18 20:48 WBC RBC Hgb Hct MCV MCH MCHC RDW Plt Count MPV Neut % (Auto) Lymph % (Auto) [place] % (Auto) Eos % (Auto) Baso % (Auto) Neut # (Auto) Lymph # (Auto) [place] # (Auto) Eos # (Auto) Baso # (Auto) ESR Sodium Potassium Chloride Carbon Dioxide Anion Gap BUN Creatinine Est GFR ( Amer) Est GFR (Non-Af Amer) POC Glucose (mg/dL) 202 H Random Glucose Calcium Total Bilirubin AST ALT Alkaline Phosphatase Total Protein Albumin Globulin Albumin/Globulin Ratio Attending/Attestation - Attestation I have personally seen and examined this patient.: Yes I have fully participated in the care of the patient.: Yes I have reviewed all pertinent clinical information: Yes Notes (Text): 05/14/18 01:30 I have seen, examined and discussed this patient with Dr Morgan. I agree with his assessment and plan. This is a Diabetic patient with 4 days of worsening of a blister to ulceration at the second and 4th toes of the right foot. The lesion non-tender, no fever, vomits nor headaches. A&P #. Diabetic left foot ulcer - Dr Kathleen podiatry on consult - Consult ID Dr Rubi ID - Follow Wound culture - Follow Blood Culture - Vancomycin - Zosyn #. DM II with hyperglycemia - Hold Metformin - Insulin Aspart sliding scale according to Accucheck #. Acute on Chronic Kidney disease - IV fluids #. Hyperkalemia - Kayexalate - Follow Electrolytes #. HTN - Hold Zestril. Fran Colin MD
[2018-05-13] MEDS ORDERED: Oxycodone/Acetaminophen 5/325 mg Tab PO PRN (20:15)
[2018-05-13] MEDS ORDERED: Glucagon Recombinant 1 mg Inj IM PRN (20:25)
[2018-05-13] MEDS ORDERED: Dextrose 50% SYRINGE Inj (50 ml) IV PRN (20:25)
[2018-05-13] MEDS ORDERED: Vancomycin 1 g Inj ONE (20:43)
[2018-05-13] MEDS: Sodium Chloride 0.9% 1,000 ML IV SCH (20:50)
[2018-05-13] MEDS: Insulin Lispro (humaLOG) 100 Units/ml Inj SC SCH (22:05)
[2018-05-13] MEDS ORDERED: Sod Polystyrene Sulf 15 gm/60 ml Susp PO ONE (22:22)
[2018-05-14] MEDS: Piperacillin/Tazobact 3.375 GM in Sodium Chloride 0.9% 100 ML IVPB SCH ×4 (00:48→20:05)
[2018-05-14 01:49] LABS: URINE BILIRUBIN NEGATIVE (NEGATIVE); URINE BLOOD SMALL (NEGATIVE); URINE CLARITY CLEAR (Clear); URINE COLOR STRAW (YELLOW); URINE GLUCOSE (UA) >=500 mg/dL (Normal); URINE LEUKOCYTE ESTERASE NEG Leu/uL (Negative); URINE PROTEIN >=500 mg/dL (NEGATIVE); URINE UROBILINOGEN 0.2-1.0 mg/dL (0.2-1.0)
[2018-05-14 06:38] LABS: BASO # 0.1 K/uL (0.0-0.2); BASO % 0.7 % (0.0-2.0); EOS # 0.2 K/uL (0.0-0.7); EOS % 2.9 % (0.0-4.0); HEMOGLOBIN 11.3 g/dL (12.0-18.0); LYMPH # 1.3 K/uL (1.0-4.3); LYMPH % 14.8 % (20.0-40.0); MEAN CELL VOLUME 85.8 fl (80.0-94.0); MEAN CORPUSCULAR HGB CONC 33.9 g/dL (33.0-37.0); MEAN PLATELET VOLUME 8.3 fl (7.2-11.7); MONO # 0.6 K/uL (0.0-0.8); MONO % 7.4 % (0.0-10.0); NEUT # 6.4 K/uL (1.8-7.0); NEUT % 74.2 % (50.0-75.0); RBC 3.9 Mil/uL (4.40-5.90); RED CELL DISTRIBUTION WIDTH 14.2 % (11.5-14.5); WHITE BLOOD COUNT 8.6 K/uL (4.8-10.8)
[2018-05-14 06:42] LABS: ALB/GLOB RATIO 1.3 (1.0-2.1); ALBUMIN 3.5 g/dL (3.5-5.0); ALT/SGPT 28 U/L (21-72); AST/SGOT 24 U/L (17-59); BLOOD UREA NITROGEN 44 mg/dl (9-20); GFR NON-AFRICAN AMERICAN 52; HDL CHOLESTEROL 22 MG/DL (30-70)
[2018-05-14] MEDS: Insulin Lispro (humaLOG) 100 Units/ml Inj SC SCH ×4 (06:52→22:12)
[2018-05-14 06:53] LABS: LDL CHOLESTEROL 76 mg/dL (0-129)
[2018-05-14] MEDS: Sodium Chloride 0.9% 1,000 ML IV SCH ×3 (08:19→23:44)
--- NOTE | 2018-05-14 08:47 | CP.PCM.PN ---
Subjective - Date & Time of Evaluation Date of Evaluation: 05/14/18 Time of Evaluation: 08:44 - Subjective Subjective: Podiatry progress note for Dr. Kathleen, 63 yo male seen and evaluated at bedside for ulcer on the right second toe and a blister on the right fourth toe. AAO x3, and in NAD. Patient denies any acute overnight events. Dressing is seen to be dry, clean and intact. Patient denies f /n/v/sob. Denies any new pedal complains. Objective - Vital Signs/Intake and Output Vital Signs (last 24 hours): Temp Pulse Resp BP Pulse Ox 97.7 F 70 20 157/80 H 98 05/14/18 07:49 05/14/18 07:49 05/14/18 07:49 05/14/18 08:19 05/14/18 07:49 - Medications Medications: Current Medications Acetaminophen (Tylenol 325mg Tab) 650 mg PO Q6 PRN PRN Reason: Pain, Mild (1-3) Last Admin: 05/14/18 00:34 Dose: 650 mg Acetaminophen (Tylenol 325mg Tab) 650 mg PO Q6 PRN PRN Reason: Fever >100.4 F Amlodipine Besylate (Norvasc) 10 mg PO DAILY [facility] Last Admin: 05/14/18 08:19 Dose: 10 mg Aspirin (Ecotrin) 81 mg PO DAILY [facility] Last Admin: 05/14/18 08:18 Dose: 81 mg Atorvastatin Calcium (Lipitor) 10 mg PO QPM [facility] Clopidogrel Bisulfate (Plavix) 75 mg PO DAILY [facility] Last Admin: 05/14/18 08:19 Dose: 75 mg Dextrose (Dextrose 50% Inj) 0 ml IV STAT PRN; Protocol PRN Reason: Hypoglycemia Protocol Dextrose (Glutose 15) 0 gm PO ONCE PRN; Protocol PRN Reason: Hypoglycemia Protocol Glucagon (Glucagen Diagnostic Kit) 0 mg IM STAT PRN; Protocol PRN Reason: Hypoglycemia Protocol Heparin Sodium (Porcine) (Heparin) 5,000 units SC Q8 [facility] PRN Reason: Protocol Last Admin: 05/14/18 08:18 Dose: 5,000 units Sodium Chloride (Sodium Chloride 0.9%) 1,000 mls @ 110 mls/hr IV .Q9H6M [facility] Last Admin: 05/14/18 08:19 Dose: Not Given Vancomycin HCl 1 gm/ Sodium (Chloride) 250 mls @ 166.667 mls/hr IVPB DAILY [facility] PRN Reason: Protocol Piperacillin Sod/Tazobactam (Sod 3.375 gm/ Sodium Chloride) 100 mls @ 100 mls/ hr IVPB Q6H [facility] PRN Reason: Protocol Last Admin: 05/14/18 06:46 Dose: 100 mls/hr Insulin Human Lispro (Humalog) 0 units SC ACHS [facility] PRN Reason: Protocol Last Admin: 05/14/18 06:52 Dose: 1 units Lisinopril (Zestril) 20 mg PO DAILY [facility] Mupirocin (Bactroban Ointment) 1 applic TOP QD7 ONE Stop: 05/15/18 07:31 Oxycodone/Acetaminophen (Percocet 5/325 Mg Tab) 1 tab PO Q4 PRN PRN Reason: Pain, moderate (4-7) Stop: 05/16/18 20:16 - Labs Labs: 05/14/18 06:10 05/14/18 06:10 - Constitutional Appears: Well, Non-toxic, No Acute Distress - Head Exam Head Exam: ATRAUMATIC, NORMOCEPHALIC - Extremities Exam Additional comments: B/L LE Focused exam: Vasc: DP/PT pulses are palpable 2/4. Cap refill < 3 sec in all digits. Temp gradient warm to warmer on the right side and warm to warm on the left side from proximal to distal. Erythema and minimal non pitting edema noted extending through the right 2nd digit and the medial side of the 4th right digit. Neuro: Protective sensation diminished b/l. Derm: Ulcer noted on the tip of the right 2nd digit. measures 1 X 1 X 0.1 with hyperkeratotic border No drainage noted, no malodor, no tracking, no undermining , no probing to bone, no fluctuance. A ruptured blister in the medial side of the right 4th toe with no drainage or malodor noted. MSK: Muscle power intact 5/5 in all groups. Partially amputated left hallux. No pain on palpating the periulcerative area of the right 2nd toe and the blister area of the 4th toe. - Neurological Exam Neurological Exam: Alert, Awake, Oriented x3 - Psychiatric Exam Psychiatric exam: Normal Affect, Normal Mood - Skin Skin Exam: Normal Color Assessment and Plan - Assessment and Plan (Free Text) Assessment: 63 Y/O M patient seen and evaluated in the ED for ulcer right second toe and blister right 4th toe; possible OM of distal phalanx of the right second toe Plan: Patient seen and evaluated in the ED. Plan discussed in details with attending dr. Kathleen Right foot X-ray reviewed and shows: There might be some erosions in the tip of the distal phalanx of the 2nd digit Chart, Labs and vitals reviewed; Afebrile, WBCs 8.6 ESR is 32. Wound culture pending MRI of the right foot reveals acute OM of the second distal phalanx of the right foot. Continue IV abx Podiatry plan: Patient stable for discharge with PO antibiotics Patient to follow up in [facility] with Dr. Kathleen for planning of surgical intervention Foot dressed with betadine on the wound and DSD Podiatry will follow up the patient while in house
[2018-05-14] MEDS ORDERED: Mupirocin 2% Cream TOP ONE (09:00)
[2018-05-14] MEDS ORDERED: Gadodiamide 287 MG/ML VIAL (15ML) IV ONE (10:38)
--- NOTE | 2018-05-14 11:37 | CP.PCM.PN ---
Subjective - Date & Time of Evaluation Date of Evaluation: 05/14/18 Time of Evaluation: 10:00 - Subjective Subjective: Shyanne [id number] Pt is a 63 yo M with a Pmhx of DM, HTN, HLD presents to ED with a diabetic R foot ulcer on right 2nd toe and a blister on the R 4th toe noticed 4 days ago when he was wearing wet sneakers, associated with mild swelling and odorless discharge. He also had B/L numbness and tingling of the feet. Today patient went for a Foot MRI which showed acute osteomylitis of distal phalynx, wound cultures pending. ID consulted- Dr. Jack. Today patient states he feels well he has a good appetite, denies any pain of the right foot. Denies fever, chills, night sweats, nausea, vomiting diarrhea. Last night the patients BP went up to 185/100 pt was given Lisinopril. Objective - Vital Signs/Intake and Output Vital Signs (last 24 hours): Temp Pulse Resp BP Pulse Ox 97.7 F 70 20 157/80 H 98 05/14/18 07:49 05/14/18 07:49 05/14/18 07:49 05/14/18 08:19 05/14/18 07:49 - Medications Medications: Current Medications Acetaminophen (Tylenol 325mg Tab) 650 mg PO Q6 PRN PRN Reason: Pain, Mild (1-3) Last Admin: 05/14/18 00:34 Dose: 650 mg Acetaminophen (Tylenol 325mg Tab) 650 mg PO Q6 PRN PRN Reason: Fever >100.4 F Amlodipine Besylate (Norvasc) 10 mg PO DAILY [facility] Last Admin: 05/14/18 08:19 Dose: 10 mg Aspirin (Ecotrin) 81 mg PO DAILY [facility] Last Admin: 05/14/18 08:18 Dose: 81 mg Atorvastatin Calcium (Lipitor) 10 mg PO QPM [facility] Clopidogrel Bisulfate (Plavix) 75 mg PO DAILY [facility] Last Admin: 05/14/18 08:19 Dose: 75 mg Dextrose (Dextrose 50% Inj) 0 ml IV STAT PRN; Protocol PRN Reason: Hypoglycemia Protocol Dextrose (Glutose 15) 0 gm PO ONCE PRN; Protocol PRN Reason: Hypoglycemia Protocol Glucagon (Glucagen Diagnostic Kit) 0 mg IM STAT PRN; Protocol PRN Reason: Hypoglycemia Protocol Heparin Sodium (Porcine) (Heparin) 5,000 units SC Q8 [facility] PRN Reason: Protocol Last Admin: 05/14/18 08:18 Dose: 5,000 units Sodium Chloride (Sodium Chloride 0.9%) 1,000 mls @ 110 mls/hr IV .Q9H6M [facility] Last Admin: 05/14/18 08:19 Dose: Not Given Vancomycin HCl 1 gm/ Sodium (Chloride) 250 mls @ 166.667 mls/hr IVPB DAILY [facility] PRN Reason: Protocol Piperacillin Sod/Tazobactam (Sod 3.375 gm/ Sodium Chloride) 100 mls @ 100 mls/ hr IVPB Q6H [facility] PRN Reason: Protocol Last Admin: 05/14/18 06:46 Dose: 100 mls/hr Insulin Human Lispro (Humalog) 0 units SC ACHS [facility] PRN Reason: Protocol Last Admin: 05/14/18 06:52 Dose: 1 units Lisinopril (Zestril) 20 mg PO DAILY [facility] Mupirocin (Bactroban Ointment) 1 applic TOP QD7 ONE Stop: 05/15/18 07:31 Oxycodone/Acetaminophen (Percocet 5/325 Mg Tab) 1 tab PO Q4 PRN PRN Reason: Pain, moderate (4-7) Stop: 05/16/18 20:16 - Labs Labs: 05/14/18 06:10 05/14/18 06:10 - Constitutional Appears: Well, Non-toxic, No Acute Distress - Head Exam Head Exam: ATRAUMATIC, NORMAL INSPECTION, NORMOCEPHALIC - Eye Exam Eye Exam: EOMI, Normal appearance, PERRL - ENT Exam ENT Exam: Mucous Membranes Moist - Neck Exam Neck Exam: Full ROM - Respiratory Exam Respiratory Exam: Clear to Ausculation Bilateral, NORMAL BREATHING PATTERN - Cardiovascular Exam Cardiovascular Exam: RRR, +S1, +S2 - GI/Abdominal Exam GI & Abdominal Exam: Soft, Normal Bowel Sounds - Extremities Exam Additional comments: Right foot debrided and wrapped with bandage clean and dry - Neurological Exam Neurological Exam: Alert, Awake, Oriented x3 - Skin Skin Exam: Warm Assessment and Plan - Assessment and Plan (Free Text) Assessment: Pt is a 63 yo M with a Pmhx of DM, HTN, HLD presents to ED with a diabetic R foot ulcer on right 2nd toe and a blister on the R 4th toe noticed 4 days ago when he was wearing wet sneakers, associated with mild swelling and odorless discharge. 1) Diabetic right foot ulcer -MRI-positive for osteomyelitis of R distal phalynx, pending wound cx results and ID input for further antibiotic recommendations -XR right foot: no osteomyelitis however erosions in the tip of the distal phalanx of the 2nd digit -ESR 32, CRP pending -Podiatry consult appreciated: c/w Abx Zosyn/vanco renal dose, debrided, wound dressing changes -Blood Culture pending 2) DM -uncontrolled 176 POC -last Hgba1c 9.1 -f/u hgba1c -SSI, hypoglycemia protocol 3) Prerenal Azotemia -IVF, BUN 44, CR 1.4 -f/u cbc, cmp 4) Hyperkalemia -H 5.4 -Kayexalate PO 30gm Once -Ordered BMP for AM 5) HTN - BP 170/78 -Started Hydrochlorothiazide 25mg Daily -Clonidine 0.1mg PRN SBP>160 -Lisinopril 20mg QD 6) HLD -Lipitor 10 mg daily -Lipid panel- 154TG, 146 Chol, 76 LDL, 22HDL 7) DVT prophylaxis Heparin
--- NOTE | 2018-05-14 11:57 | CP.PCM.CON ---
History of Present Illness - History of Present Illness History of Present Illness: ID Consult Note- asked to see this patient at the request of the hospitalist for right foot diabetic ulcer. HPI- Vanna is a 63 year old male with PMH of DM II, HTN who was admitted for right foot ulcer of the second digit that he noticed 5 days ago along with redness and swelling . he states his shoes were wet and he developed blister while walking in those shoes and he thinks that is how it developed. He denies any fever or chills. denies any RG, denies any cough or sob, denies any chest pain, denies any abd. pain, denies any nausea, denies any diarrhea, denies any dysurea. PMD: CFH. Seen today by DR lagunas PMH: DM, HTN and Hypercholesterolemia PSH: Left hallux partial amputation. Allergies: Alendronate sodium, CT scan PO contrast. Social Hx: Denies smoking or illicit drug use, Drink alcohol about 8 beers every 2-3 days. Review of Systems - Review of Systems Review of Systems: ROS- as stated in HPI Past Patient History - Infectious Disease Hx of Infectious Diseases: None - Past Medical History & Family History Past Medical History?: Yes - Past Social History Smoking Status: Former Smoker Drugs: Denies - CARDIAC Hx Cardiac Disorders: Yes Hx Hypercholesterolemia: Yes Hx Hypertension: Yes - PULMONARY Hx Respiratory Disorders: No - NEUROLOGICAL Hx Neurological Disorder: Yes HX Cerebrovascular Accident: Yes (Hx. Ischemic CVA) - HEENT Hx HEENT Problems: No - RENAL Hx Chronic Kidney Disease: Yes Other/Comment: Acute kidney injury - ENDOCRINE/METABOLIC Hx Endocrine Disorders: Yes Hx Diabetes Mellitus Type 2: Yes - HEMATOLOGICAL/ONCOLOGICAL Hx Blood Disorders: No - INTEGUMENTARY Hx Dermatological Problems: Yes Hx Cellulitis: Yes (Hx. left foot) - MUSCULOSKELETAL/RHEUMATOLOGICAL Hx Musculoskeletal Disorders: Yes Hx Back Pain: Yes Hx Falls: No - GASTROINTESTINAL Hx Gastrointestinal Disorders: No - GENITOURINARY/GYNECOLOGICAL Hx Genitourinary Disorders: No - PSYCHIATRIC Hx Psychophysiologic Disorder: No Hx Substance Use: No - SURGICAL HISTORY Hx Surgeries: Yes Hx Amputation: Yes (L great toe and 2nd digit tip) Other/Comment: left great toe hallux amputation 2years ago - ANESTHESIA Hx Anesthesia: Yes Hx Anesthesia Reactions: No Hx Malignant Hyperthermia: No Has any member of the family had a problem w/ anesthesia?: No Meds Allergies/Adverse Reactions: Allergies Allergy/AdvReac Type Severity Reaction Status Date / Time alendronate sodium Allergy RASH Verified 11/13/17 12:57 CT Scan PO Contrast Allergy RASH Uncoded 11/13/17 22:44 - Medications Medications: Current Medications Acetaminophen (Tylenol 325mg Tab) 650 mg PO Q6 PRN PRN Reason: Pain, Mild (1-3) Last Admin: 05/14/18 00:34 Dose: 650 mg Acetaminophen (Tylenol 325mg Tab) 650 mg PO Q6 PRN PRN Reason: Fever >100.4 F Amlodipine Besylate (Norvasc) 10 mg PO DAILY [facility] Last Admin: 05/14/18 08:19 Dose: 10 mg Aspirin (Ecotrin) 81 mg PO DAILY [facility] Last Admin: 05/14/18 08:18 Dose: 81 mg Atorvastatin Calcium (Lipitor) 10 mg PO QPM [facility] Clopidogrel Bisulfate (Plavix) 75 mg PO DAILY [facility] Last Admin: 05/14/18 08:19 Dose: 75 mg Dextrose (Dextrose 50% Inj) 0 ml IV STAT PRN; Protocol PRN Reason: Hypoglycemia Protocol Dextrose (Glutose 15) 0 gm PO ONCE PRN; Protocol PRN Reason: Hypoglycemia Protocol Glucagon (Glucagen Diagnostic Kit) 0 mg IM STAT PRN; Protocol PRN Reason: Hypoglycemia Protocol Heparin Sodium (Porcine) (Heparin) 5,000 units SC Q8 [facility] PRN Reason: Protocol Last Admin: 05/14/18 08:18 Dose: 5,000 units Sodium Chloride (Sodium Chloride 0.9%) 1,000 mls @ 110 mls/hr IV .Q9H6M [facility] Last Admin: 05/14/18 08:19 Dose: Not Given Vancomycin HCl 1 gm/ Sodium (Chloride) 250 mls @ 166.667 mls/hr IVPB DAILY [facility] PRN Reason: Protocol Piperacillin Sod/Tazobactam (Sod 3.375 gm/ Sodium Chloride) 100 mls @ 100 mls/ hr IVPB Q6H [facility] PRN Reason: Protocol Last Admin: 05/14/18 06:46 Dose: 100 mls/hr Insulin Human Lispro (Humalog) 0 units SC ACHS [facility] PRN Reason: Protocol Last Admin: 05/14/18 06:52 Dose: 1 units Lisinopril (Zestril) 20 mg PO DAILY [facility] Mupirocin (Bactroban Ointment) 1 applic TOP QD7 ONE Stop: 05/15/18 07:31 Oxycodone/Acetaminophen (Percocet 5/325 Mg Tab) 1 tab PO Q4 PRN PRN Reason: Pain, moderate (4-7) Stop: 05/16/18 20:16 Physical Exam - Constitutional Appears: No Acute Distress - Head Exam Head Exam: ATRAUMATIC - Eye Exam Eye Exam: EOMI - ENT Exam ENT Exam: Normal Oropharynx - Neck Exam Neck exam: Positive for: Full Rom - Respiratory Exam Respiratory Exam: Clear to Auscultation Bilateral, NORMAL BREATHING PATTERN - Cardiovascular Exam Cardiovascular Exam: RRR, +S1, +S2 - GI/Abdominal Exam GI & Abdominal Exam: Normal Bowel Sounds, Soft Additional comments: NT, ND - Extremities Exam Additional comments: right foot with distal second toe with eschar dried gangrene , no active discharge minimal surrounding erythema - Neurological Exam Neurological exam: Alert, Oriented x3 Results - Vital Signs Recent Vital Signs: Last Vital Signs Temp 97.7 F 05/14/18 07:49 Pulse 70 05/14/18 07:49 Resp 20 05/14/18 07:49 BP 157/80 H 05/14/18 08:19 Pulse Ox 98 05/14/18 07:49 - Labs Result Diagrams: 05/14/18 06:10 05/14/18 06:10 Labs: Laboratory Results - last 24 hr 05/13/18 05/13/18 05/13/18 17:56 18:04 18:04 WBC 12.5 H RBC 4.16 L Hgb 12.0 Hct 35.9 MCV 86.2 MCH 28.9 MCHC 33.5 RDW 14.6 H Plt Count 283 MPV 8.4 Neut % (Auto) 77.8 H Lymph % (Auto) 13.1 L [place] % (Auto) 6.4 Eos % (Auto) 2.0 Baso % (Auto) 0.7 Neut # (Auto) 9.7 H Lymph # (Auto) 1.6 [place] # (Auto) 0.8 Eos # (Auto) 0.2 Baso # (Auto) 0.1 ESR 32 H Sodium 136 Potassium 5.4 H Chloride 105 Carbon Dioxide 20 L Anion Gap 16 BUN 55 H Creatinine 2.0 H Est GFR ( Amer) 41 Est GFR (Non-Af Amer) 34 POC Glucose (mg/dL) 141 H Random Glucose 160 H Calcium 9.5 Total Bilirubin 0.6 AST 30 ALT 28 Alkaline Phosphatase 129 H D Total Protein 7.2 Albumin 4.3 Globulin 3.0 Albumin/Globulin Ratio 1.4 Triglycerides Cholesterol LDL Cholesterol Direct HDL Cholesterol Urine Color Urine Clarity Urine pH Ur Specific [place] Urine Protein Urine Glucose (UA) Urine Ketones Urine Blood Urine Nitrate Urine Bilirubin Urine Urobilinogen Ur Leukocyte Esterase Urine RBC (Auto) Urine Microscopic WBC 05/13/18 05/14/18 05/14/18 20:48 01:30 05:38 WBC RBC Hgb Hct MCV MCH MCHC RDW Plt Count MPV Neut % (Auto) Lymph % (Auto) [place] % (Auto) Eos % (Auto) Baso % (Auto) Neut # (Auto) Lymph # (Auto) [place] # (Auto) Eos # (Auto) Baso # (Auto) ESR Sodium Potassium Chloride Carbon Dioxide Anion Gap BUN Creatinine Est GFR ( Amer) Est GFR (Non-Af Amer) POC Glucose (mg/dL) 202 H 169 H Random Glucose Calcium Total Bilirubin AST ALT Alkaline Phosphatase Total Protein Albumin Globulin Albumin/Globulin Ratio Triglycerides Cholesterol LDL Cholesterol Direct HDL Cholesterol Urine Color Straw Urine Clarity Clear Urine pH 6.0 Ur Specific [place] 1.013 Urine Protein >=500 Urine Glucose (UA) >=500 Urine Ketones Negative Urine Blood Small Urine Nitrate Negative Urine Bilirubin Negative Urine Urobilinogen 0.2-1.0 Ur Leukocyte Esterase Neg Urine RBC (Auto) 1 Urine Microscopic WBC < 1 05/14/18 05/14/18 06:10 06:10 WBC 8.6 RBC 3.90 L Hgb 11.3 L Hct 33.5 L MCV 85.8 MCH 29.0 MCHC 33.9 RDW 14.2 Plt Count 250 MPV 8.3 Neut % (Auto) 74.2 Lymph % (Auto) 14.8 L [place] % (Auto) 7.4 Eos % (Auto) 2.9 Baso % (Auto) 0.7 Neut # (Auto) 6.4 Lymph # (Auto) 1.3 [place] # (Auto) 0.6 Eos # (Auto) 0.2 Baso # (Auto) 0.1 ESR Sodium 139 Potassium 5.2 H Chloride 109 H Carbon Dioxide 24 Anion Gap 11 BUN 44 H Creatinine 1.4 Est GFR ( Amer) > 60 Est GFR (Non-Af Amer) 52 POC Glucose (mg/dL) Random Glucose 191 H Calcium 9.0 Total Bilirubin 0.6 AST 24 ALT 28 Alkaline Phosphatase 113 Total Protein 6.1 L Albumin 3.5 Globulin 2.7 Albumin/Globulin Ratio 1.3 Triglycerides 154 H D Cholesterol 146 LDL Cholesterol Direct 76 HDL Cholesterol 22 L Urine Color Urine Clarity Urine pH Ur Specific [place] Urine Protein Urine Glucose (UA) Urine Ketones Urine Blood Urine Nitrate Urine Bilirubin Urine Urobilinogen Ur Leukocyte Esterase Urine RBC (Auto) Urine Microscopic WBC Accession No. : [id number] Patient Name / ID : NILDA QIU / [id number] Exam Date : 05/14/2018 10:46:45 ( Approved ) Study Comment : Sex / Age : M / 63Y Creator : Brenden Sun MD Dictator : Brenden Sun MD Drawing Press Operator : Stamping Die Maker : Brenden Sun MD Approver2 : Report Date : 05/14/2018 13:09:30 My Comment : MRI right foot History: 2nd digit ulcer. Evaluate for osteomyelitis. Comparison: None available. Technique: Multi-echo multiplanar sequences were performed through the right foot without the use of intravenous contrast. Findings: Motion artifact limits evaluation. Soft tissue ulceration seen at the level of the 2nd distal phalanx. Signal abnormality noted within the 2nd distal phalanx demonstrating decreased T1 signal and increased STIR signal concerning for acute osteomyelitis. Moderate hallux valgus deformity. Severe degenerative changes noted at the 1st MTP joint space with decreased T1 signal and increased STIR signal noted at the 1st metatarsal head. Prominent subchondral cyst formation and or peripheral erosions noted at that level. Severe degenerative changes noted at the 1st metatarsus sesamoid joint space. Associated osteochondral change of the medial sesamoid bone. Osteochondral change with subchondral cyst formation and reactive edema noted at the head of the 1st proximal phalanx. Some failure of fat suppression and or reactive edema noted at the head of the 1st distal phalanx. Subchondral cyst formation and or osteochondral change at the distal pole of the navicular bone. Osteochondral change with reactive edema noted at the anterior calcaneus and talus. 5 millimeter osteochondral abnormality and or subchondral cyst formation at the medial aspect of the talar dome. Reticulation and edema seen within the musculature of the forefoot. Impression: Motion artifact limits evaluation. Soft tissue ulceration seen at the level of the 2nd distal phalanx. Signal abnormality noted within the 2nd distal phalanx demonstrating decreased T1 signal and increased STIR signal concerning for acute osteomyelitis. Clinical correlation. Moderate hallux valgus deformity. Severe degenerative changes noted at the 1st MTP joint space with decreased T1 signal and increased STIR signal noted at the 1st metatarsal head. Prominent subchondral cyst formation and or peripheral erosions noted at that level. Severe degenerative changes noted at the 1st metatarsus sesamoid joint space. Associated osteochondral change of the medial sesamoid bone. Clinical correlation to exclude superimposed acute inflammatory and or infectious change at this level. Osteochondral change with subchondral cyst formation and reactive edema noted at the head of the 1st proximal phalanx. Clinical correlation to exclude superimposed acute inflammatory and or infectious change at this level. Some failure of fat suppression and or reactive edema noted at the head of the 1st distal phalanx. Subchondral cyst formation and or osteochondral change at the distal pole of the navicular bone. Osteochondral change with reactive edema noted at the anterior calcaneus and talus. 5 millimeter osteochondral abnormality and or subchondral cyst formation at the medial aspect of the talar dome. Reticulation and edema seen within the musculature of the forefoot. Assessment & Plan (1) Acute kidney injury (nontraumatic) Status: Acute (2) Diabetic foot infection Status: Acute (3) Osteomyelitis Status: Acute - Assessment and Plan (Free Text) Assessment: A/p- 63 year old male with Dm II, HTn admitted with right foot second toe ulcer found to have OM on MRI reading. plan- check blood cx. check wound cx . continue with empiric abx vanco and zosyn . keep vanco trough <15. will need either toe resection or debridement . if debridement would ask to send bone cx and bone biopsy. length of abx pending decision by podiatry regarding total toe resection vs debridement. all above d/w patient and he verbalizes full understanding of all above and agrees with above plan of care. Thank you for allowing me to take part in the care of this patient.
[2018-05-14 12:58] VITALS: BMI 25.0
--- NOTE | 2018-05-14 13:11 | MRI ---
MRI right foot History: 2nd digit ulcer. Evaluate for osteomyelitis. Comparison: None available. Technique: Multi-echo multiplanar sequences were performed through the right foot without the use of intravenous contrast. Findings: Motion artifact limits evaluation. Soft tissue ulceration seen at the level of the 2nd distal phalanx. Signal abnormality noted within the 2nd distal phalanx demonstrating decreased T1 signal and increased STIR signal concerning for acute osteomyelitis. Moderate hallux valgus deformity. Severe degenerative changes noted at the 1st MTP joint space with decreased T1 signal and increased STIR signal noted at the 1st metatarsal head. Prominent subchondral cyst formation and or peripheral erosions noted at that level. Severe degenerative changes noted at the 1st metatarsus sesamoid joint space. Associated osteochondral change of the medial sesamoid bone. Osteochondral change with subchondral cyst formation and reactive edema noted at the head of the 1st proximal phalanx. Some failure of fat suppression and or reactive edema noted at the head of the 1st distal phalanx. Subchondral cyst formation and or osteochondral change at the distal pole of the navicular bone. Osteochondral change with reactive edema noted at the anterior calcaneus and talus. 5 millimeter osteochondral abnormality and or subchondral cyst formation at the medial aspect of the talar dome. Reticulation and edema seen within the musculature of the forefoot. Impression: Motion artifact limits evaluation. Soft tissue ulceration seen at the level of the 2nd distal phalanx. Signal abnormality noted within the 2nd distal phalanx demonstrating decreased T1 signal and increased STIR signal concerning for acute osteomyelitis. Clinical correlation. Moderate hallux valgus deformity. Severe degenerative changes noted at the 1st MTP joint space with decreased T1 signal and increased STIR signal noted at the 1st metatarsal head. Prominent subchondral cyst formation and or peripheral erosions noted at that level. Severe degenerative changes noted at the 1st metatarsus sesamoid joint space. Associated osteochondral change of the medial sesamoid bone. Clinical correlation to exclude superimposed acute inflammatory and or infectious change at this level. Osteochondral change with subchondral cyst formation and reactive edema noted at the head of the 1st proximal phalanx. Clinical correlation to exclude superimposed acute inflammatory and or infectious change at this level. Some failure of fat suppression and or reactive edema noted at the head of the 1st distal phalanx. Subchondral cyst formation and or osteochondral change at the distal pole of the navicular bone. Osteochondral change with reactive edema noted at the anterior calcaneus and talus. 5 millimeter osteochondral abnormality and or subchondral cyst formation at the medial aspect of the talar dome. Reticulation and edema seen within the musculature of the forefoot.
[2018-05-14] MEDS ORDERED: Sod Polystyrene Sulf 15 gm/60 ml Susp PO ONE (17:07)
[2018-05-15] MEDS: Piperacillin/Tazobact 3.375 GM in Sodium Chloride 0.9% 100 ML IVPB SCH ×4 (00:13→19:00)
[2018-05-15 06:46] LABS: BLOOD UREA NITROGEN 30 mg/dl (9-20); CALCIUM 8.3 mg/dL (8.4-10.2); GFR NON-AFRICAN AMERICAN 52
--- NOTE | 2018-05-15 08:51 | CP.PCM.PN ---
Subjective - Date & Time of Evaluation Date of Evaluation: 05/15/18 Time of Evaluation: 08:50 - Subjective Subjective: Podiatry progress note for Dr. Kathleen, 63 yo male seen and evaluated at bedside for ulcer on the right second toe and a blister on the right fourth toe. AAO x3, and in NAD. Patient denies any acute overnight events. Dressing is seen to be dry, clean and intact. Patient denies f /n/v/sob. Denies any new pedal complains. Objective - Vital Signs/Intake and Output Vital Signs (last 24 hours): Temp Pulse Resp BP Pulse Ox 97.3 F L 70 18 170/78 H 98 05/15/18 08:13 05/15/18 08:13 05/15/18 08:13 05/15/18 08:13 05/15/18 08:13 - Medications Medications: Current Medications Acetaminophen (Tylenol 325mg Tab) 650 mg PO Q6 PRN PRN Reason: Pain, Mild (1-3) Last Admin: 05/14/18 00:34 Dose: 650 mg Acetaminophen (Tylenol 325mg Tab) 650 mg PO Q6 PRN PRN Reason: Fever >100.4 F Amlodipine Besylate (Norvasc) 10 mg PO DAILY [facility] Last Admin: 05/14/18 08:19 Dose: 10 mg Aspirin (Ecotrin) 81 mg PO DAILY [facility] Last Admin: 05/14/18 08:18 Dose: 81 mg Atorvastatin Calcium (Lipitor) 10 mg PO QPM [facility] Last Admin: 05/14/18 17:08 Dose: 10 mg Clonidine HCl (Catapres) 0.1 mg PO TID PRN PRN Reason: Other Last Admin: 05/14/18 17:23 Dose: 0.1 mg Clopidogrel Bisulfate (Plavix) 75 mg PO DAILY [facility] Last Admin: 05/14/18 08:19 Dose: 75 mg Dextrose (Dextrose 50% Inj) 0 ml IV STAT PRN; Protocol PRN Reason: Hypoglycemia Protocol Dextrose (Glutose 15) 0 gm PO ONCE PRN; Protocol PRN Reason: Hypoglycemia Protocol Glucagon (Glucagen Diagnostic Kit) 0 mg IM STAT PRN; Protocol PRN Reason: Hypoglycemia Protocol Heparin Sodium (Porcine) (Heparin) 5,000 units SC Q8 KENDAL PRN Reason: Protocol Last Admin: 05/15/18 00:13 Dose: 5,000 units Hydrochlorothiazide (Hydrodiuril) 25 mg PO DAILY [facility] Last Admin: 05/14/18 17:22 Dose: 25 mg Sodium Chloride (Sodium Chloride 0.9%) 1,000 mls @ 110 mls/hr IV .Q9H6M [facility] Last Admin: 05/14/18 23:44 Dose: Not Given Vancomycin HCl 1 gm/ Sodium (Chloride) 250 mls @ 166.667 mls/hr IVPB DAILY [facility] PRN Reason: Protocol Last Admin: 05/14/18 20:05 Dose: 166.667 mls/hr Piperacillin Sod/Tazobactam (Sod 3.375 gm/ Sodium Chloride) 100 mls @ 100 mls/ hr IVPB Q6H [facility] PRN Reason: Protocol Last Admin: 05/15/18 06:14 Dose: 100 mls/hr Insulin Human Lispro (Humalog) 0 units SC ACHS [facility] PRN Reason: Protocol Last Admin: 05/14/18 22:12 Dose: Not Given Lisinopril (Zestril) 20 mg PO DAILY [facility] Oxycodone/Acetaminophen (Percocet 5/325 Mg Tab) 1 tab PO Q4 PRN PRN Reason: Pain, moderate (4-7) Stop: 05/16/18 20:16 - Labs Labs: 05/14/18 06:10 05/15/18 05:45 - Constitutional Appears: Well, Non-toxic, No Acute Distress - Head Exam Head Exam: ATRAUMATIC, NORMOCEPHALIC - Extremities Exam Additional comments: B/L LE Focused exam: Vasc: DP/PT pulses are palpable 2/4. Cap refill < 3 sec in all digits. Temp gradient warm to warmer on the right side and warm to warm on the left side from proximal to distal. Erythema and minimal non pitting edema noted extending through the right 2nd digit and the medial side of the 4th right digit. Neuro: Protective sensation diminished b/l. Derm: Ulcer noted on the tip of the right 2nd digit. measures 1 X 1 X 0.1 with hyperkeratotic border No drainage noted, no malodor, no tracking, no undermining , no probing to bone, no fluctuance. A ruptured blister in the medial side of the right 4th toe with no drainage or malodor noted. MSK: Muscle power intact 5/5 in all groups. Partially amputated left hallux. No pain on palpating the periulcerative area of the right 2nd toe and the blister area of the 4th toe. - Neurological Exam Neurological Exam: Alert, Awake, Oriented x3 Assessment and Plan - Assessment and Plan (Free Text) Assessment: 63 Y/O M patient seen and evaluated in the ED for ulcer right second toe and blister right 4th toe; possible OM of distal phalanx of the right second toe Plan: Patient seen and evaluated in the ED. Plan discussed in details with attending dr. Kathleen Right foot X-ray reviewed and shows: There might be some erosions in the tip of the distal phalanx of the 2nd digit Chart, Labs and vitals reviewed; Afebrile, WBCs 8.6 ESR is 32. Wound culture pending MRI of the right foot reveals acute OM of the second distal phalanx of the right foot. Continue IV abx Podiatry plan: Patient stable for discharge with PO antibiotics- ID recs appreciated Patient to follow up in [place] wound care clinic with Dr. Kathleen for planning of surgical intervention Foot dressed with betadine on the wound and DSD Podiatry will follow up the patient while in house
[2018-05-15] MEDS: Insulin Lispro (humaLOG) 100 Units/ml Inj SC SCH ×4 (09:42→21:24)
--- NOTE | 2018-05-15 10:34 | CP.PCM.PN ---
Subjective - Date & Time of Evaluation Date of Evaluation: 05/15/18 Time of Evaluation: 10:33 - Subjective Subjective: ID Note- Pt. seen and examined today. denies any fever or chills. Objective - Vital Signs/Intake and Output Vital Signs (last 24 hours): Temp Pulse Resp BP Pulse Ox 97.3 F L 70 18 178/78 H 98 05/15/18 08:13 05/15/18 09:40 05/15/18 08:13 05/15/18 09:40 05/15/18 08:13 - Medications Medications: Current Medications Acetaminophen (Tylenol 325mg Tab) 650 mg PO Q6 PRN PRN Reason: Pain, Mild (1-3) Last Admin: 05/14/18 00:34 Dose: 650 mg Acetaminophen (Tylenol 325mg Tab) 650 mg PO Q6 PRN PRN Reason: Fever >100.4 F Amlodipine Besylate (Norvasc) 10 mg PO DAILY [facility] Last Admin: 05/15/18 09:40 Dose: 10 mg Aspirin (Ecotrin) 81 mg PO DAILY [facility] Last Admin: 05/15/18 09:41 Dose: 81 mg Atorvastatin Calcium (Lipitor) 10 mg PO QPM [facility] Last Admin: 05/14/18 17:08 Dose: 10 mg Clonidine HCl (Catapres) 0.1 mg PO TID PRN PRN Reason: Other Last Admin: 05/14/18 17:23 Dose: 0.1 mg Clopidogrel Bisulfate (Plavix) 75 mg PO DAILY [facility] Last Admin: 05/15/18 09:40 Dose: 75 mg Dextrose (Dextrose 50% Inj) 0 ml IV STAT PRN; Protocol PRN Reason: Hypoglycemia Protocol Dextrose (Glutose 15) 0 gm PO ONCE PRN; Protocol PRN Reason: Hypoglycemia Protocol Glucagon (Glucagen Diagnostic Kit) 0 mg IM STAT PRN; Protocol PRN Reason: Hypoglycemia Protocol Heparin Sodium (Porcine) (Heparin) 5,000 units SC Q8 [facility]AL PRN Reason: Protocol Last Admin: 05/15/18 09:38 Dose: 5,000 units Hydrochlorothiazide (Hydrodiuril) 25 mg PO DAILY [facility] Last Admin: 05/14/18 17:22 Dose: 25 mg Sodium Chloride (Sodium Chloride 0.9%) 1,000 mls @ 110 mls/hr IV .Q9H6M [facility] Last Admin: 05/14/18 23:44 Dose: Not Given Vancomycin HCl 1 gm/ Sodium (Chloride) 250 mls @ 166.667 mls/hr IVPB DAILY [facility] PRN Reason: Protocol Last Admin: 05/14/18 20:05 Dose: 166.667 mls/hr Piperacillin Sod/Tazobactam (Sod 3.375 gm/ Sodium Chloride) 100 mls @ 100 mls/ hr IVPB Q6H [facility] PRN Reason: Protocol Last Admin: 05/15/18 06:14 Dose: 100 mls/hr Insulin Human Lispro (Humalog) 0 units SC ACHS [facility] PRN Reason: Protocol Last Admin: 05/15/18 09:42 Dose: 2 units Lisinopril (Zestril) 20 mg PO DAILY [facility] Last Admin: 05/15/18 09:39 Dose: 20 mg Oxycodone/Acetaminophen (Percocet 5/325 Mg Tab) 1 tab PO Q4 PRN PRN Reason: Pain, moderate (4-7) Stop: 05/16/18 20:16 - Labs Labs: - Additional Findings Additional findings: - Constitutional Appears: No Acute Distress - Head Exam Head Exam: ATRAUMATIC - Eye Exam Eye Exam: EOMI - ENT Exam ENT Exam: Normal Oropharynx - Neck Exam Neck exam: Positive for: Full Rom - Respiratory Exam Respiratory Exam: Clear to Auscultation Bilateral, NORMAL BREATHING PATTERN - Cardiovascular Exam Cardiovascular Exam: RRR, +S1, +S2 - GI/Abdominal Exam GI & Abdominal Exam: Normal Bowel Sounds, Soft Additional comments: NT, ND - Extremities Exam Additional comments: right foot with distal second toe with eschar dried gangrene , no active discharge minimal surrounding erythema - Neurological Exam Neurological exam: Alert, Oriented x 3 Laboratory Results - last 72 hr 05/13/18 05/13/18 05/13/18 17:56 18:04 18:04 WBC 12.5 H RBC 4.16 L Hgb 12.0 Hct 35.9 MCV 86.2 MCH 28.9 MCHC 33.5 RDW 14.6 H Plt Count 283 MPV 8.4 Neut % (Auto) 77.8 H Lymph % (Auto) 13.1 L Douglas % (Auto) 6.4 Eos % (Auto) 2.0 Baso % (Auto) 0.7 Neut # (Auto) 9.7 H Lymph # (Auto) 1.6 Douglas # (Auto) 0.8 Eos # (Auto) 0.2 Baso # (Auto) 0.1 ESR 32 H Sodium 136 Potassium 5.4 H Chloride 105 Carbon Dioxide 20 L Anion Gap 16 BUN 55 H Creatinine 2.0 H Est GFR ( Amer) 41 Est GFR (Non-Af Amer) 34 POC Glucose (mg/dL) 141 H Random Glucose 160 H Hemoglobin A1c Calcium 9.5 Total Bilirubin 0.6 AST 30 ALT 28 Alkaline Phosphatase 129 H D C-Reactive Prot, Quant Total Protein 7.2 Albumin 4.3 Globulin 3.0 Albumin/Globulin Ratio 1.4 Triglycerides Cholesterol LDL Cholesterol Direct HDL Cholesterol Urine Color Urine Clarity Urine pH Ur Specific [place] Urine Protein Urine Glucose (UA) Urine Ketones Urine Blood Urine Nitrate Urine Bilirubin Urine Urobilinogen Ur Leukocyte Esterase Urine RBC (Auto) Urine Microscopic WBC 05/13/18 05/13/18 05/14/18 19:00 20:48 01:30 WBC RBC Hgb Hct MCV MCH MCHC RDW Plt Count MPV Neut % (Auto) Lymph % (Auto) Douglas % (Auto) Eos % (Auto) Baso % (Auto) Neut # (Auto) Lymph # (Auto) Douglas # (Auto) Eos # (Auto) Baso # (Auto) ESR Sodium Potassium Chloride Carbon Dioxide Anion Gap BUN Creatinine Est GFR ( Amer) Est GFR (Non-Af Amer) POC Glucose (mg/dL) 202 H Random Glucose Hemoglobin A1c Calcium Total Bilirubin AST ALT Alkaline Phosphatase C-Reactive Prot, Quant 15.3 H Total Protein Albumin Globulin Albumin/Globulin Ratio Triglycerides Cholesterol LDL Cholesterol Direct HDL Cholesterol Urine Color Straw Urine Clarity Clear Urine pH 6.0 Ur Specific [place] 1.013 Urine Protein >=500 Urine Glucose (UA) >=500 Urine Ketones Negative Urine Blood Small Urine Nitrate Negative Urine Bilirubin Negative Urine Urobilinogen 0.2-1.0 Ur Leukocyte Esterase Neg Urine RBC (Auto) 1 Urine Microscopic WBC < 1 05/14/18 05/14/18 05/14/18 05:38 06:10 06:10 WBC 8.6 RBC 3.90 L Hgb 11.3 L Hct 33.5 L MCV 85.8 MCH 29.0 MCHC 33.9 RDW 14.2 Plt Count 250 MPV 8.3 Neut % (Auto) 74.2 Lymph % (Auto) 14.8 L Douglas % (Auto) 7.4 Eos % (Auto) 2.9 Baso % (Auto) 0.7 Neut # (Auto) 6.4 Lymph # (Auto) 1.3 Douglas # (Auto) 0.6 Eos # (Auto) 0.2 Baso # (Auto) 0.1 ESR Sodium 139 Potassium 5.2 H Chloride 109 H Carbon Dioxide 24 Anion Gap 11 BUN 44 H Creatinine 1.4 Est GFR ( Amer) > 60 Est GFR (Non-Af Amer) 52 POC Glucose (mg/dL) 169 H Random Glucose 191 H Hemoglobin A1c Calcium 9.0 Total Bilirubin 0.6 AST 24 ALT 28 Alkaline Phosphatase 113 C-Reactive Prot, Quant Total Protein 6.1 L Albumin 3.5 Globulin 2.7 Albumin/Globulin Ratio 1.3 Triglycerides 154 H D Cholesterol 146 LDL Cholesterol Direct 76 HDL Cholesterol 22 L Urine Color Urine Clarity Urine pH Ur Specific [place] Urine Protein Urine Glucose (UA) Urine Ketones Urine Blood Urine Nitrate Urine Bilirubin Urine Urobilinogen Ur Leukocyte Esterase Urine RBC (Auto) Urine Microscopic WBC 05/14/18 05/14/18 05/14/18 06:10 12:06 15:52 WBC RBC Hgb Hct MCV MCH MCHC RDW Plt Count MPV Neut % (Auto) Lymph % (Auto) Douglas % (Auto) Eos % (Auto) Baso % (Auto) Neut # (Auto) Lymph # (Auto) Douglas # (Auto) Eos # (Auto) Baso # (Auto) ESR Sodium Potassium Chloride Carbon Dioxide Anion Gap BUN Creatinine Est GFR ( Amer) Est GFR (Non-Af Amer) POC Glucose (mg/dL) 268 H 176 H Random Glucose Hemoglobin A1c 9.1 H Calcium Total Bilirubin AST ALT Alkaline Phosphatase C-Reactive Prot, Quant Total Protein Albumin Globulin Albumin/Globulin Ratio Triglycerides Cholesterol LDL Cholesterol Direct HDL Cholesterol Urine Color Urine Clarity Urine pH Ur Specific [place] Urine Protein Urine Glucose (UA) Urine Ketones Urine Blood Urine Nitrate Urine Bilirubin Urine Urobilinogen Ur Leukocyte Esterase Urine RBC (Auto) Urine Microscopic WBC 05/14/18 05/15/18 05/15/18 21:06 05:32 05:45 WBC RBC Hgb Hct MCV MCH MCHC RDW Plt Count MPV Neut % (Auto) Lymph % (Auto) Douglas % (Auto) Eos % (Auto) Baso % (Auto) Neut # (Auto) Lymph # (Auto) Douglas # (Auto) Eos # (Auto) Baso # (Auto) ESR Sodium 139 Potassium 3.9 Chloride 106 Carbon Dioxide 29 Anion Gap 8 L BUN 30 H Creatinine 1.4 Est GFR ( Amer) > 60 Est GFR (Non-Af Amer) 52 POC Glucose (mg/dL) 164 H 200 H Random Glucose 208 H Hemoglobin A1c Calcium 8.3 L Total Bilirubin AST ALT Alkaline Phosphatase C-Reactive Prot, Quant Total Protein Albumin Globulin Albumin/Globulin Ratio Triglycerides Cholesterol LDL Cholesterol Direct HDL Cholesterol Urine Color Urine Clarity Urine pH Ur Specific [place] Urine Protein Urine Glucose (UA) Urine Ketones Urine Blood Urine Nitrate Urine Bilirubin Urine Urobilinogen Ur Leukocyte Esterase Urine RBC (Auto) Urine Microscopic WBC 05/15/18 11:00 WBC RBC Hgb Hct MCV MCH MCHC RDW Plt Count MPV Neut % (Auto) Lymph % (Auto) Douglas % (Auto) Eos % (Auto) Baso % (Auto) Neut # (Auto) Lymph # (Auto) Douglas # (Auto) Eos # (Auto) Baso # (Auto) ESR Sodium Potassium Chloride Carbon Dioxide Anion Gap BUN Creatinine Est GFR ( Amer) Est GFR (Non-Af Amer) POC Glucose (mg/dL) 310 H Random Glucose Hemoglobin A1c Calcium Total Bilirubin AST ALT Alkaline Phosphatase C-Reactive Prot, Quant Total Protein Albumin Globulin Albumin/Globulin Ratio Triglycerides Cholesterol LDL Cholesterol Direct HDL Cholesterol Urine Color Urine Clarity Urine pH Ur Specific [place] Urine Protein Urine Glucose (UA) Urine Ketones Urine Blood Urine Nitrate Urine Bilirubin Urine Urobilinogen Ur Leukocyte Esterase Urine RBC (Auto) Urine Microscopic WBC Microbiology 05/14/18 06:10 Blood-Venous Blood Culture - Preliminary NO GROWTH AFTER 24 HOURS Accession No. : [id number] Patient Name / ID : NILDA QIU / [id number] Exam Date : 05/14/2018 10:46:45 ( Approved ) Study Comment : Sex / Age : M / 63Y Creator : Brenden Sun MD Dictator : Brenden Sun MD Senior Asp Net Developer : Magician/Illusionist : Brenden Sun MD Approver2 : Report Date : 05/14/2018 13:09:30 My Comment : MRI right foot History: 2nd digit ulcer. Evaluate for osteomyelitis. Comparison: None available. Technique: Multi-echo multiplanar sequences were performed through the right foot without the use of intravenous contrast. Findings: Motion artifact limits evaluation. Soft tissue ulceration seen at the level of the 2nd distal phalanx. Signal abnormality noted within the 2nd distal phalanx demonstrating decreased T1 signal and increased STIR signal concerning for acute osteomyelitis. Moderate hallux valgus deformity. Severe degenerative changes noted at the 1st MTP joint space with decreased T1 signal and increased STIR signal noted at the 1st metatarsal head. Prominent subchondral cyst formation and or peripheral erosions noted at that level. Severe degenerative changes noted at the 1st metatarsus sesamoid joint space. Associated osteochondral change of the medial sesamoid bone. Osteochondral change with subchondral cyst formation and reactive edema noted at the head of the 1st proximal phalanx. Some failure of fat suppression and or reactive edema noted at the head of the 1st distal phalanx. Subchondral cyst formation and or osteochondral change at the distal pole of the navicular bone. Osteochondral change with reactive edema noted at the anterior calcaneus and talus. 5 millimeter osteochondral abnormality and or subchondral cyst formation at the medial aspect of the talar dome. Reticulation and edema seen within the musculature of the forefoot. Impression: Motion artifact limits evaluation. Soft tissue ulceration seen at the level of the 2nd distal phalanx. Signal abnormality noted within the 2nd distal phalanx demonstrating decreased T1 signal and increased STIR signal concerning for acute osteomyelitis. Clinical correlation. Moderate hallux valgus deformity. Severe degenerative changes noted at the 1st MTP joint space with decreased T1 signal and increased STIR signal noted at the 1st metatarsal head. Prominent subchondral cyst formation and or peripheral erosions noted at that level. Severe degenerative changes noted at the 1st metatarsus sesamoid joint space. Associated osteochondral change of the medial sesamoid bone. Clinical correlation to exclude superimposed acute inflammatory and or infectious change at this level. Osteochondral change with subchondral cyst formation and reactive edema noted at the head of the 1st proximal phalanx. Clinical correlation to exclude superimposed acute inflammatory and or infectious change at this level. Some failure of fat suppression and or reactive edema noted at the head of the 1st distal phalanx. Subchondral cyst formation and or osteochondral change at the distal pole of the navicular bone. Osteochondral change with reactive edema noted at the anterior calcaneus and talus. 5 millimeter osteochondral abnormality and or subchondral cyst formation at the medial aspect of the talar dome. Reticulation and edema seen within the musculature of the forefoot Assessment and Plan (1) Acute kidney injury (nontraumatic) Status: Acute (2) Diabetic foot infection Status: Acute (3) Osteomyelitis Status: Acute - Assessment and Plan (Free Text) Assessment: A/p- 63 year old male with Dm II, HTn admitted with right foot second toe ulcer found to have OM on MRI reading. afebrile] normal wbc count blood cx- neg MRI report- acute OM of the second toe as per report. plan- continue with empiric abx vanco and zosyn . day #2 keep vanco trough <15. will most likely need either toe resection to remove the necrotic bone. if debridement would ask to send bone cx and bone biopsy. length of abx pending decision by podiatry regarding total toe resection vs debridement. all above d/w patient and he verbalizes full understanding of all above and agrees with above plan of care. d/w as well.
--- NOTE | 2018-05-15 14:57 | CP.PCM.PN ---
Subjective - Date & Time of Evaluation Date of Evaluation: 05/15/18 Time of Evaluation: 03:00 - Subjective Subjective: [id number] Today patient states he feels well, he slept well, has a good appetite, denies any pain of the right foot. Denies fever, chills, night sweats, nausea, vomiting diarrhea, constipation. The patients BP henry up to 170/78 today. Objective - Vital Signs/Intake and Output Vital Signs (last 24 hours): Temp Pulse Resp BP Pulse Ox 97.3 F L 70 18 178/78 H 98 05/15/18 08:13 05/15/18 09:40 05/15/18 08:13 05/15/18 09:40 05/15/18 08:13 - Medications Medications: Current Medications Acetaminophen (Tylenol 325mg Tab) 650 mg PO Q6 PRN PRN Reason: Pain, Mild (1-3) Last Admin: 05/14/18 00:34 Dose: 650 mg Acetaminophen (Tylenol 325mg Tab) 650 mg PO Q6 PRN PRN Reason: Fever >100.4 F Amlodipine Besylate (Norvasc) 10 mg PO DAILY [facility] Last Admin: 05/15/18 09:40 Dose: 10 mg Aspirin (Ecotrin) 81 mg PO DAILY [facility] Last Admin: 05/15/18 09:41 Dose: 81 mg Atorvastatin Calcium (Lipitor) 10 mg PO QPM [facility] Last Admin: 05/14/18 17:08 Dose: 10 mg Clonidine HCl (Catapres) 0.1 mg PO TID PRN PRN Reason: Other Last Admin: 05/14/18 17:23 Dose: 0.1 mg Clopidogrel Bisulfate (Plavix) 75 mg PO DAILY [facility] Last Admin: 05/15/18 09:40 Dose: 75 mg Dextrose (Dextrose 50% Inj) 0 ml IV STAT PRN; Protocol PRN Reason: Hypoglycemia Protocol Dextrose (Glutose 15) 0 gm PO ONCE PRN; Protocol PRN Reason: Hypoglycemia Protocol Glucagon (Glucagen Diagnostic Kit) 0 mg IM STAT PRN; Protocol PRN Reason: Hypoglycemia Protocol Heparin Sodium (Porcine) (Heparin) 5,000 units SC Q8 K[facility]AL PRN Reason: Protocol Last Admin: 05/15/18 09:38 Dose: 5,000 units Hydrochlorothiazide (Hydrodiuril) 25 mg PO DAILY [facility] Last Admin: 05/14/18 17:22 Dose: 25 mg Sodium Chloride (Sodium Chloride 0.9%) 1,000 mls @ 110 mls/hr IV .Q9H6M [facility] Last Admin: 05/14/18 23:44 Dose: Not Given Vancomycin HCl 1 gm/ Sodium (Chloride) 250 mls @ 166.667 mls/hr IVPB DAILY [facility] PRN Reason: Protocol Last Admin: 05/14/18 20:05 Dose: 166.667 mls/hr Piperacillin Sod/Tazobactam (Sod 3.375 gm/ Sodium Chloride) 100 mls @ 100 mls/ hr IVPB Q6H [facility] PRN Reason: Protocol Last Admin: 05/15/18 13:11 Dose: 100 mls/hr Insulin Human Lispro (Humalog) 0 units SC ACHS [facility] PRN Reason: Protocol Last Admin: 05/15/18 13:10 Dose: 4 units Lisinopril (Zestril) 20 mg PO DAILY [facility] Last Admin: 05/15/18 09:39 Dose: 20 mg Oxycodone/Acetaminophen (Percocet 5/325 Mg Tab) 1 tab PO Q4 PRN PRN Reason: Pain, moderate (4-7) Stop: 05/16/18 20:16 - Labs Labs: 05/14/18 06:10 05/15/18 05:45 - Constitutional Appears: Well, Non-toxic, No Acute Distress - Head Exam Head Exam: ATRAUMATIC, NORMAL INSPECTION, NORMOCEPHALIC - Eye Exam Eye Exam: EOMI, Normal appearance, PERRL - ENT Exam ENT Exam: Mucous Membranes Moist, Normal Exam - Neck Exam Neck Exam: Full ROM, Normal Inspection - Respiratory Exam Respiratory Exam: Clear to Ausculation Bilateral, NORMAL BREATHING PATTERN - Cardiovascular Exam Cardiovascular Exam: RRR, +S1, +S2 - GI/Abdominal Exam GI & Abdominal Exam: Soft, Normal Bowel Sounds - Extremities Exam Extremities Exam: Normal Inspection Additional comments: Right foot debrided and wrapped with bandage clean and dry - Neurological Exam Neurological Exam: Alert, Awake, Oriented x3 - Skin Skin Exam: Normal Color Assessment and Plan - Assessment and Plan (Free Text) Assessment: Assessment: Pt is a 63 yo M with a Pmhx of DM, HTN, HLD presents to ED with a diabetic R foot ulcer on right 2nd toe and a blister on the R 4th toe, diagnosed with osteomyelitis via MRI. 1) Diabetic right foot ulcer -Pending ID- Dalton Cote input for further antibiotic recommendations possible inpt or outpt course -MRI-positive for osteomyelitis of R distal phalynx -XR right foot: no osteomyelitis however erosions in the tip of the distal phalanx of the 2nd digit -ESR 32, CRP pending -Podiatry consult appreciated: c/w Abx Zosyn/vanco Day 2 renal dose, debrided, wound dressing changes - Vanc trough f/u -Blood Culture negative @24hrs, no wound culture was done 2) DM -uncontrolled 310 POC -last Hgba1c 9.1 -f/u hgba1c -SSI, hypoglycemia protocol 3) Prerenal Azotemia -IVF, BUN 30, CR 1.4 -f/u cbc, cmp 4) Hyperkalemia -Corrected 3.9 -F/u BMP 5) HTN - BP 170/78 overnight -Raised Lisinopril to 40mg QD -Added Hydralazine 25mg Q6h -Hydrochlorothiazide 25mg Daily -Clonidine 0.1mg PRN SBP>160 -Decrease IVF's 6) HLD -Lipitor 10 mg daily -Lipid panel- 154TG, 146 Chol, 76 LDL, 22HDL 7) DVT prophylaxis Heparin
[2018-05-15] MEDS: Sodium Chloride 0.9% 1,000 ML IV SCH (16:53)
[2018-05-15 23:32] VITALS: RESP 20
[2018-05-16] MEDS: Piperacillin/Tazobact 3.375 GM in Sodium Chloride 0.9% 100 ML IVPB SCH ×2 (00:14→06:04)
[2018-05-16] MEDS: Sodium Chloride 0.9% 1,000 ML IV SCH (03:35)
[2018-05-16 08:28] VITALS: TEMP 97.8; O2SAT 95
[2018-05-16] MEDS: Insulin Lispro (humaLOG) 100 Units/ml Inj SC SCH ×2 (09:08→11:54)
[2018-05-16 09:11] VITALS: BP 147/78; PULSE 66
--- NOTE | 2018-05-16 10:17 | CP.PCM.DIS ---
<Yuridia Arango - Last Filed: 05/16/18 20:05> Provider - Provider Date of Admission: 05/13/18 19:03 Attending physician: Fantasma Norris MD Time Spent in preparation of Discharge (in minutes): 30 Diagnosis - Discharge Diagnosis (1) Diabetic foot infection Status: Acute (2) Osteomyelitis Status: Acute (3) HTN (hypertension) Status: Chronic (4) DM2 (diabetes mellitus, type 2) Status: Chronic Hospital Course - Lab Results Lab Results: Micro Results 05/14/18 06:10 Blood-Venous Blood Culture - Preliminary NO GROWTH AFTER 48 HOURS Most Recent Lab Values WBC 8.6 K/uL (4.8-10.8) 05/14/18 06:10 RBC 3.90 Mil/uL (4.40-5.90) L 05/14/18 06:10 Hgb 11.3 g/dL (12.0-18.0) L 05/14/18 06:10 Hct 33.5 % (35.0-51.0) L 05/14/18 06:10 MCV 85.8 fl (80.0-94.0) 05/14/18 06:10 MCH 29.0 pg (27.0-31.0) 05/14/18 06:10 MCHC 33.9 g/dL (33.0-37.0) 05/14/18 06:10 RDW 14.2 % (11.5-14.5) 05/14/18 06:10 Plt Count 250 K/uL (130-400) 05/14/18 06:10 MPV 8.3 fl (7.2-11.7) 05/14/18 06:10 Neut % (Auto) 74.2 % (50.0-75.0) 05/14/18 06:10 Lymph % (Auto) 14.8 % (20.0-40.0) L 05/14/18 06:10 [place] % (Auto) 7.4 % (0.0-10.0) 05/14/18 06:10 Eos % (Auto) 2.9 % (0.0-4.0) 05/14/18 06:10 Baso % (Auto) 0.7 % (0.0-2.0) 05/14/18 06:10 Neut # (Auto) 6.4 K/uL (1.8-7.0) 05/14/18 06:10 Lymph # (Auto) 1.3 K/uL (1.0-4.3) 05/14/18 06:10 [place] # (Auto) 0.6 K/uL (0.0-0.8) 05/14/18 06:10 Eos # (Auto) 0.2 K/uL (0.0-0.7) 05/14/18 06:10 Baso # (Auto) 0.1 K/uL (0.0-0.2) 05/14/18 06:10 ESR 32 mm/hr (0-20) H 05/13/18 18:04 Sodium 139 mmol/l (132-148) 05/15/18 05:45 Potassium 3.9 MMOL/L (3.6-5.0) 05/15/18 05:45 Chloride 106 mmol/L (98-107) 05/15/18 05:45 Carbon Dioxide 29 mmol/L (22-30) 05/15/18 05:45 Anion Gap 8 (10-20) L 05/15/18 05:45 BUN 30 mg/dl (9-20) H 05/15/18 05:45 Creatinine 1.4 mg/dl (0.8-1.5) 05/15/18 05:45 Est GFR ( Amer) > 60 05/15/18 05:45 Est GFR (Non-Af Amer) 52 05/15/18 05:45 POC Glucose (mg/dL) 175 mg/dL (65-110) H 05/16/18 05:27 Random Glucose 208 mg/dL (75-110) H 05/15/18 05:45 Hemoglobin A1c 9.1 % (4.2-6.5) H 05/14/18 06:10 Calcium 8.3 mg/dL (8.4-10.2) L 05/15/18 05:45 Total Bilirubin 0.6 mg/dl (0.2-1.3) 05/14/18 06:10 AST 24 U/L (17-59) 05/14/18 06:10 ALT 28 U/L (21-72) 05/14/18 06:10 Alkaline Phosphatase 113 U/L (38-126) 05/14/18 06:10 C-Reactive Prot, Quant 15.3 mg/L (<8.0) H 05/13/18 19:00 Total Protein 6.1 G/DL (6.3-8.2) L 05/14/18 06:10 Albumin 3.5 g/dL (3.5-5.0) 05/14/18 06:10 Globulin 2.7 gm/dL (2.2-3.9) 05/14/18 06:10 Albumin/Globulin Ratio 1.3 (1.0-2.1) 05/14/18 06:10 Triglycerides 154 mg/DL (0-149) H D 05/14/18 06:10 Cholesterol 146 mg/dL (0-199) 05/14/18 06:10 LDL Cholesterol Direct 76 mg/dL (0-129) 05/14/18 06:10 HDL Cholesterol 22 MG/DL (30-70) L 05/14/18 06:10 Urine Color Straw (YELLOW) 05/14/18 01:30 Urine Clarity Clear (Clear) 05/14/18 01:30 Urine pH 6.0 (5.0-8.0) 05/14/18 01:30 Ur Specific Louise 1.013 (1.003-1.030) 05/14/18 01:30 Urine Protein >=500 mg/dL (NEGATIVE) 05/14/18 01:30 Urine Glucose (UA) >=500 mg/dL (Normal) 05/14/18 01:30 Urine Ketones Negative mg/dL (NEGATIVE) 05/14/18 01:30 Urine Blood Small (NEGATIVE) 05/14/18 01:30 Urine Nitrate Negative (NEGATIVE) 05/14/18 01:30 Urine Bilirubin Negative (NEGATIVE) 05/14/18 01:30 Urine Urobilinogen 0.2-1.0 mg/dL (0.2-1.0) 05/14/18 01:30 Ur Leukocyte Esterase Neg Catarino/uL (Negative) 05/14/18 01:30 Urine RBC (Auto) 1 /hpf (0-3) 05/14/18 01:30 Urine Microscopic WBC < 1 /hpf (0-5) 05/14/18 01:30 Vancomycin Trough 10.7 ug/mL (5.0-10.0) H 05/16/18 05:00 - Hospital Course Hospital Course: 63 yo ,m, PMhx/o DM, HTN, HLD admitted for diabetic foot ulcer, found to have OM on MRI. On admission patient was afebrile, and leukocytosis resolved on admission. Started on IV Vanco, and Zosyn by ID. ID recommended 6 weeks of IV antibiotics. As per POdiatry requested, IV antibiotics were adjusted to PO antibiotics, and patient will be discharged home on Bactrim DS BID, and Augmentin BID to complete 6 weeks. Patient to follow up in [place] wound [facility] clinic with Dr. Ramos for planning of surgical intervention. - Date & Time of H&P Date of H&P: 05/13/18 Time of H&P: 20:10 Discharge Exam - Head Exam Head Exam: ATRAUMATIC, NORMAL INSPECTION, NORMOCEPHALIC - Additional Findings Additional findings: Constitutional Appears: Well, Non-toxic, No Acute Distress - Head Exam Head Exam: ATRAUMATIC, NORMAL INSPECTION, NORMOCEPHALIC - Eye Exam Eye Exam: EOMI, Normal appearance, PERRL - ENT Exam ENT Exam: Mucous Membranes Moist, Normal Exam - Neck Exam Neck Exam: Full ROM, Normal Inspection - Respiratory Exam Respiratory Exam: Clear to Ausculation Bilateral, NORMAL BREATHING PATTERN - Cardiovascular Exam Cardiovascular Exam: RRR, +S1, +S2 - GI/Abdominal Exam GI & Abdominal Exam: Soft, Normal Bowel Sounds - Extremities Exam Extremities Exam: Normal Inspection Additional comments: Right foot debrided and wrapped with bandage clean and dry Discharge Plan - Discharge Medications Prescriptions: amLODIPine [Norvasc] 10 mg PO DAILY #30 tab Amoxicillin/Clavulanate [Augmentin 875 MG-125 MG] 1 tab PO Q12 42 Days #504 tab Aspirin [Ecotrin] 81 mg PO DAILY #30 tab Atorvastatin [Lipitor] 10 mg PO QPM #30 tab Clopidogrel [Plavix] 75 mg PO DAILY #18 tab hydrALAZINE [Apresoline] 25 mg PO Q6 #120 tab Insulin Aspart/Insulin Aspar [Novolog Mix 70/30 (70/30 units/ml)] 22 units SC QAM #1 vial Insulin Aspart/Insulin Aspar [Novolog Mix 70/30 (70/30 units/ml)] 11 units SC QPM #1 vial Lisinopril [Zestril] 20 mg PO DAILY #30 tab MetFORMIN [glucoPHAGE] 1,000 mg PO BIDWM #60 tab oxyCODONE/Acetaminophen [Percocet 5/325 mg Tab] 1 tab PO Q4 PRN #20 tab PRN Reason: Pain, Moderate (4-7) Sulfamethoxazole/Trimethoprim [Bactrim DS 800 mg-160 mg] 1 tab PO Q12 42 Days # 504 tab - Follow Up Plan Condition: STABLE Disposition: HOME/ ROUTINE Instructions: Diabetic Foot Ulcer (DC) Additional Instructions: follow up to [place] [facility] in 2 to 3 days. Referrals: Carlos Ramos DPM [Staff Provider] - <Mary Lou Youssef - Last Filed: 05/17/18 13:21> Provider - Provider Date of Admission: 05/13/18 19:03 Attending physician: Fantasma Norris MD Hospital Course - Lab Results Lab Results: Micro Results 05/14/18 06:10 Blood-Venous Blood Culture - Preliminary NO GROWTH AFTER 3 DAYS Most Recent Lab Values WBC 8.6 K/uL (4.8-10.8) 05/14/18 06:10 RBC 3.90 Mil/uL (4.40-5.90) L 05/14/18 06:10 Hgb 11.3 g/dL (12.0-18.0) L 05/14/18 06:10 Hct 33.5 % (35.0-51.0) L 05/14/18 06:10 MCV 85.8 fl (80.0-94.0) 05/14/18 06:10 MCH 29.0 pg (27.0-31.0) 05/14/18 06:10 MCHC 33.9 g/dL (33.0-37.0) 05/14/18 06:10 RDW 14.2 % (11.5-14.5) 05/14/18 06:10 Plt Count 250 K/uL (130-400) 05/14/18 06:10 MPV 8.3 fl (7.2-11.7) 05/14/18 06:10 Neut % (Auto) 74.2 % (50.0-75.0) 05/14/18 06:10 Lymph % (Auto) 14.8 % (20.0-40.0) L 05/14/18 06:10 [place] % (Auto) 7.4 % (0.0-10.0) 05/14/18 06:10 Eos % (Auto) 2.9 % (0.0-4.0) 05/14/18 06:10 Baso % (Auto) 0.7 % (0.0-2.0) 05/14/18 06:10 Neut # (Auto) 6.4 K/uL (1.8-7.0) 05/14/18 06:10 Lymph # (Auto) 1.3 K/uL (1.0-4.3) 05/14/18 06:10 [place] # (Auto) 0.6 K/uL (0.0-0.8) 05/14/18 06:10 Eos # (Auto) 0.2 K/uL (0.0-0.7) 05/14/18 06:10 Baso # (Auto) 0.1 K/uL (0.0-0.2) 05/14/18 06:10 ESR 32 mm/hr (0-20) H 05/13/18 18:04 Sodium 139 mmol/l (132-148) 05/15/18 05:45 Potassium 3.9 MMOL/L (3.6-5.0) 05/15/18 05:45 Chloride 106 mmol/L (98-107) 05/15/18 05:45 Carbon Dioxide 29 mmol/L (22-30) 05/15/18 05:45 Anion Gap 8 (10-20) L 05/15/18 05:45 BUN 30 mg/dl (9-20) H 05/15/18 05:45 Creatinine 1.4 mg/dl (0.8-1.5) 05/15/18 05:45 Est GFR ( Amer) > 60 05/15/18 05:45 Est GFR (Non-Af Amer) 52 05/15/18 05:45 POC Glucose (mg/dL) 307 mg/dL (65-110) H 05/16/18 11:14 Random Glucose 208 mg/dL (75-110) H 05/15/18 05:45 Hemoglobin A1c 9.1 % (4.2-6.5) H 05/14/18 06:10 Calcium 8.3 mg/dL (8.4-10.2) L 05/15/18 05:45 Total Bilirubin 0.6 mg/dl (0.2-1.3) 05/14/18 06:10 AST 24 U/L (17-59) 05/14/18 06:10 ALT 28 U/L (21-72) 05/14/18 06:10 Alkaline Phosphatase 113 U/L (38-126) 05/14/18 06:10 C-Reactive Prot, Quant 15.3 mg/L (<8.0) H 05/13/18 19:00 Total Protein 6.1 G/DL (6.3-8.2) L 05/14/18 06:10 Albumin 3.5 g/dL (3.5-5.0) 05/14/18 06:10 Globulin 2.7 gm/dL (2.2-3.9) 05/14/18 06:10 Albumin/Globulin Ratio 1.3 (1.0-2.1) 05/14/18 06:10 Triglycerides 154 mg/DL (0-149) H D 05/14/18 06:10 Cholesterol 146 mg/dL (0-199) 05/14/18 06:10 LDL Cholesterol Direct 76 mg/dL (0-129) 05/14/18 06:10 HDL Cholesterol 22 MG/DL (30-70) L 05/14/18 06:10 Urine Color Straw (YELLOW) 05/14/18 01:30 Urine Clarity Clear (Clear) 05/14/18 01:30 Urine pH 6.0 (5.0-8.0) 05/14/18 01:30 Ur Specific Louise 1.013 (1.003-1.030) 05/14/18 01:30 Urine Protein >=500 mg/dL (NEGATIVE) 05/14/18 01:30 Urine Glucose (UA) >=500 mg/dL (Normal) 05/14/18 01:30 Urine Ketones Negative mg/dL (NEGATIVE) 05/14/18 01:30 Urine Blood Small (NEGATIVE) 05/14/18 01:30 Urine Nitrate Negative (NEGATIVE) 05/14/18 01:30 Urine Bilirubin Negative (NEGATIVE) 05/14/18 01:30 Urine Urobilinogen 0.2-1.0 mg/dL (0.2-1.0) 05/14/18 01:30 Ur Leukocyte Esterase Neg Catarino/uL (Negative) 05/14/18 01:30 Urine RBC (Auto) 1 /hpf (0-3) 05/14/18 01:30 Urine Microscopic WBC < 1 /hpf (0-5) 05/14/18 01:30 Vancomycin Trough 10.7 ug/mL (5.0-10.0) H 05/16/18 05:00 Attending/Attestation - Attestation I have personally seen and examined this patient.: Yes I have fully participated in the care of the patient.: Yes I have reviewed all pertinent clinical information, including history, physical exam and plan: Yes Notes (Text): 05/17/18 13:21 Seen examined and discussed with resident, agree with findings and plan as above.
--- NOTE | 2018-05-16 12:57 | CP.PCM.PN ---
Subjective - Date & Time of Evaluation Date of Evaluation: 05/16/18 Time of Evaluation: 10:40 - Subjective Subjective: Podiatry Progress Note for Dr. Kathleen: 63 yo male seen and evaluated at bedside for right second toe ulceration. Patient is resting comfortably and in NAD. He denies any acute events overnight and denies any new pedal complaints. Denies N/V/F/SOB/CP. Objective - Vital Signs/Intake and Output Vital Signs (last 24 hours): Temp Pulse Resp BP Pulse Ox 97.8 F 66 20 147/78 95 05/16/18 08:27 05/16/18 09:10 05/16/18 08:27 05/16/18 09:10 05/16/18 08:27 - Medications Medications: Current Medications Acetaminophen (Tylenol 325mg Tab) 650 mg PO Q6 PRN PRN Reason: Pain, Mild (1-3) Last Admin: 05/14/18 00:34 Dose: 650 mg Acetaminophen (Tylenol 325mg Tab) 650 mg PO Q6 PRN PRN Reason: Fever >100.4 F Amlodipine Besylate (Norvasc) 10 mg PO DAILY [facility] Last Admin: 05/16/18 09:10 Dose: 10 mg Aspirin (Ecotrin) 81 mg PO DAILY [facility] Last Admin: 05/16/18 09:09 Dose: 81 mg Atorvastatin Calcium (Lipitor) 10 mg PO QPM [facility] Last Admin: 05/15/18 17:51 Dose: 10 mg Clonidine HCl (Catapres) 0.1 mg PO TID PRN PRN Reason: Other Last Admin: 05/16/18 07:38 Dose: 0.1 mg Clopidogrel Bisulfate (Plavix) 75 mg PO DAILY [facility] Last Admin: 05/16/18 09:10 Dose: 75 mg Dextrose (Dextrose 50% Inj) 0 ml IV STAT PRN; Protocol PRN Reason: Hypoglycemia Protocol Dextrose (Glutose 15) 0 gm PO ONCE PRN; Protocol PRN Reason: Hypoglycemia Protocol Glucagon (Glucagen Diagnostic Kit) 0 mg IM STAT PRN; Protocol PRN Reason: Hypoglycemia Protocol Heparin Sodium (Porcine) (Heparin) 5,000 units SC Q8 KENDAL PRN Reason: Protocol Last Admin: 05/16/18 09:10 Dose: 5,000 units Hydralazine HCl (Apresoline) 25 mg PO Q6 [facility] Last Admin: 05/16/18 09:09 Dose: 25 mg Vancomycin HCl 1 gm/ Sodium (Chloride) 250 mls @ 166.667 mls/hr IVPB DAILY [facility] PRN Reason: Protocol Last Admin: 05/16/18 09:11 Dose: 166.667 mls/hr Piperacillin Sod/Tazobactam (Sod 3.375 gm/ Sodium Chloride) 100 mls @ 100 mls/ hr IVPB Q6H [facility] PRN Reason: Protocol Last Admin: 05/16/18 06:04 Dose: 100 mls/hr Sodium Chloride (Sodium Chloride 0.9%) 1,000 mls @ 55 mls/hr IV .[id number] [facility] Last Admin: 05/16/18 03:35 Dose: 55 mls/hr Insulin Human Lispro (Humalog) 0 units SC ACHS [facility] PRN Reason: Protocol Last Admin: 05/16/18 11:54 Dose: 4 units Lisinopril (Zestril) 20 mg PO DAILY [facility] Last Admin: 05/15/18 09:39 Dose: 20 mg Oxycodone/Acetaminophen (Percocet 5/325 Mg Tab) 1 tab PO Q4 PRN PRN Reason: Pain, moderate (4-7) Stop: 05/16/18 20:16 - Labs Labs: 05/14/18 06:10 05/15/18 05:45 - Extremities Exam Additional comments: Vasc: DP/PT pulses are palpable 2/4. Cap refill < 3 sec in all digits. Minimal non pitting edema noted beginning at right 2nd digit and extending proximally to dorsal aspect of second metatarsal head Ortho: MMT 5/5 in all groups. Partially amputated left hallux. No pain on palpating the periulcerative area of the right 2nd toe Neuro: Protective sensation diminished bilaterally, gross sensation intact Derm: Ulcer noted on the tip of the right 2nd digit. measures 1 X 1 X 0.1 with hyperkeratotic border. No drainage noted, no malodor, no tracking, no undermining, no probing to bone, no fluctuance. - Neurological Exam Neurological Exam: Alert, Awake, Oriented x3 - Psychiatric Exam Psychiatric exam: Normal Affect, Normal Mood Assessment and Plan - Assessment and Plan (Free Text) Assessment: 63 yo male patient seen and evaluated for right 2nd digit ulceration with acute OM Plan: Patient seen and evaluated and plan discussed with Dr. Kathleen Lab, chart, vitals reviewed; afebrile, absent leukocytosis Ulceration examined and dressed with betadine, DSD MRI; Acute OM of right 2nd distal phalax Patient stable for D/C on PO antibiotics from podiatry point of view Patient to follow up in [place] [facility] with Dr. Kathleen, upon discharge, for planning of surgical intervention/debridement
--- NOTE | 2018-05-16 13:00 | CP.PCM.PN ---
Subjective - Date & Time of Evaluation Date of Evaluation: 05/16/18 Time of Evaluation: 12:56 - Subjective Subjective: ID note- pt. had OM based on MRI result. pt. would need either vascular studies to determine his vascularization or need for re-vascularization or toe amputation vs debridement to treta the acute toe OM. is toe amputation or surgical debridement is not being planned by podiatry then pt. would need at least 6 week of IV abx for acute OM of the toe. advise 6 weeks of either vanco and zosyn or vanco and cefepime. check vanco trough weekly and keep it <15. all above d/w DR. Mary Lou Youssef hospitalist taking care of the patient. Objective - Vital Signs/Intake and Output Vital Signs (last 24 hours): Temp Pulse Resp BP Pulse Ox 97.8 F 66 20 147/78 95 05/16/18 08:27 05/16/18 09:10 05/16/18 08:27 05/16/18 09:10 05/16/18 08:27 - Medications Medications: Current Medications Acetaminophen (Tylenol 325mg Tab) 650 mg PO Q6 PRN PRN Reason: Pain, Mild (1-3) Last Admin: 05/14/18 00:34 Dose: 650 mg Acetaminophen (Tylenol 325mg Tab) 650 mg PO Q6 PRN PRN Reason: Fever >100.4 F Amlodipine Besylate (Norvasc) 10 mg PO DAILY [facility] Last Admin: 05/16/18 09:10 Dose: 10 mg Aspirin (Ecotrin) 81 mg PO DAILY [facility] Last Admin: 05/16/18 09:09 Dose: 81 mg Atorvastatin Calcium (Lipitor) 10 mg PO QPM [facility] Last Admin: 05/15/18 17:51 Dose: 10 mg Clonidine HCl (Catapres) 0.1 mg PO TID PRN PRN Reason: Other Last Admin: 05/16/18 07:38 Dose: 0.1 mg Clopidogrel Bisulfate (Plavix) 75 mg PO DAILY [facility] Last Admin: 05/16/18 09:10 Dose: 75 mg Dextrose (Dextrose 50% Inj) 0 ml IV STAT PRN; Protocol PRN Reason: Hypoglycemia Protocol Dextrose (Glutose 15) 0 gm PO ONCE PRN; Protocol PRN Reason: Hypoglycemia Protocol Glucagon (Glucagen Diagnostic Kit) 0 mg IM STAT PRN; Protocol PRN Reason: Hypoglycemia Protocol Heparin Sodium (Porcine) (Heparin) 5,000 units SC Q8 [facility] PRN Reason: Protocol Last Admin: 05/16/18 09:10 Dose: 5,000 units Hydralazine HCl (Apresoline) 25 mg PO Q6 [facility] Last Admin: 05/16/18 09:09 Dose: 25 mg Vancomycin HCl 1 gm/ Sodium (Chloride) 250 mls @ 166.667 mls/hr IVPB DAILY [facility] PRN Reason: Protocol Last Admin: 05/16/18 09:11 Dose: 166.667 mls/hr Piperacillin Sod/Tazobactam (Sod 3.375 gm/ Sodium Chloride) 100 mls @ 100 mls/ hr IVPB Q6H [facility] PRN Reason: Protocol Last Admin: 05/16/18 06:04 Dose: 100 mls/hr Sodium Chloride (Sodium Chloride 0.9%) 1,000 mls @ 55 mls/hr IV .[id number] [facility] Last Admin: 05/16/18 03:35 Dose: 55 mls/hr Insulin Human Lispro (Humalog) 0 units SC ACHS [facility] PRN Reason: Protocol Last Admin: 05/16/18 11:54 Dose: 4 units Lisinopril (Zestril) 20 mg PO DAILY [facility] Last Admin: 05/15/18 09:39 Dose: 20 mg Oxycodone/Acetaminophen (Percocet 5/325 Mg Tab) 1 tab PO Q4 PRN PRN Reason: Pain, moderate (4-7) Stop: 05/16/18 20:16 - Labs Labs: 05/14/18 06:10 05/15/18 05:45 Assessment and Plan (1) Acute kidney injury (nontraumatic) Status: Acute (2) Diabetic foot infection Status: Acute (3) Osteomyelitis Status: Acute
== END 2018-05-16 13:31 | disposition home or self-care (01) | DRG 638 ==
LOC: H.ER 17:23 → H.ERHOLD 19:03 → H.MEDSURG1 22:28
PROC: 0HDMXZZ Extraction of Right Foot Skin, External Approach (ICD-10-PCS; principal; 2018-05-15)
DX: E11.628 Type 2 diabetes mellitus with other skin complications (principal); M86.171 Other acute osteomyelitis, right ankle and foot; E11.621 Type 2 diabetes mellitus with foot ulcer; L97.519 Non-pressure chronic ulcer of other part of right foot with unspecified severity; L08.89 Other specified local infections of the skin and subcutaneous tissue; N17.9 Acute kidney failure, unspecified; E87.5 Hyperkalemia; E11.65 Type 2 diabetes mellitus with hyperglycemia; I10 Essential (primary) hypertension; E78.5 Hyperlipidemia, unspecified; E11.69 Type 2 diabetes mellitus with other specified complication; E78.00 Pure hypercholesterolemia, unspecified; Z79.4 Long term (current) use of insulin; Z79.84 Long term (current) use of oral hypoglycemic drugs; Z86.73 Personal history of transient ischemic attack (TIA), and cerebral infarction without residual deficits; Z79.82 Long term (current) use of aspirin; Z79.02 Long term (current) use of antithrombotics/antiplatelets; Z87.891 Personal history of nicotine dependence

== ENCOUNTER 2018-05-17 22:49 | Emergency (ER) | payer MEDICAID, SELFPAY ==
[2018-05-17 22:50] VITALS: BMI 25.0
[2018-05-17 23:09] VITALS: RESP 18
[2018-05-17] MEDS ORDERED: Sodium Chloride 0.9% 1,000 ML IV STA (23:32)
[2018-05-17] MEDS ORDERED: DiphenhydrAMINE 50 mg/ml Inj IV STA (23:39)
--- NOTE | 2018-05-17 23:48 | ED PDOC ---
HPI: Allergic Reaction Time Seen by Provider: 05/17/18 23:15 Chief Complaint (Nursing): Allergic Reaction Chief Complaint (Provider): Allergic reaction History Per: Patient History/Exam Limitations: no limitations Onset/Duration Of Symptoms: Hrs (this evening) Current Symptoms Are (Timing): Still Present Associated Symptoms: Swelling, Itching Additional Complaint(s): Nolberto Mcelroy is a 63 year old male, with a past medical history of diabetes and HTN, who presents to the emergency department for an allergic reaction onset this evening. Patient was discharged yesterday after a 4 day admission for a diabetic foot infection. He was discharged on Bactrim and Augmentin, and reports this evening he developed facial redness and swelling described as burning sensation as well as a mild itch quality to rash. He denies other associated rash but does report feeling some mild tongue swelling. He denies any trouble breathing or swallowing. No further medical complaints. PMD: Norbert Atwood Past Medical History Reviewed: Historical Data, Nursing Documentation, Vital Signs Vital Signs: Last Vital Signs Temp 98.7 F 05/17/18 23:05 Pulse 106 H 05/17/18 23:05 Resp 18 05/17/18 23:05 BP 188/94 H 05/17/18 23:05 Pulse Ox 100 05/17/18 23:05 - Medical History PMH: Diabetes, HTN, Hypercholesterolemia Denies: HIV, Chronic Kidney Disease - Surgical History Surgical History: No Surg Hx - Family History Family History: States: Unknown Family Hx - Immunization History Hx Influenza Vaccination: Yes - Home Medications Home Medications: Ambulatory Orders Medication Instructions Recorded Acetaminophen [Tylenol 325mg tab] 650 mg PO Q6 PRN tab 05/16/18 Amoxicillin/Clavulanate [Augmentin 1 tab PO Q12 42 Days #504 tab 05/16/18 875 MG-125 MG] Aspirin [Ecotrin] 81 mg PO DAILY #30 tab 05/16/18 Atorvastatin [Lipitor] 10 mg PO QPM #30 tab 05/16/18 Clopidogrel [Plavix] 75 mg PO DAILY #18 tab 05/16/18 Insulin Aspart/Insulin Aspar 11 units SC QPM #1 vial 05/16/18 [Novolog Mix 70/30 (70/30 units/ml)] Insulin Aspart/Insulin Aspar 22 units SC QAM #1 vial 05/16/18 [Novolog Mix 70/30 (70/30 units/ml)] Lisinopril [Zestril] 20 mg PO DAILY #30 tab 05/16/18 MetFORMIN [glucoPHAGE] 1,000 mg PO BIDWM #60 tab 05/16/18 Sulfamethoxazole/Trimethoprim 1 tab PO Q12 42 Days #504 tab 05/16/18 [Bactrim DS 800 mg-160 mg] amLODIPine [Norvasc] 10 mg PO DAILY #30 tab 05/16/18 hydrALAZINE [Apresoline] 25 mg PO Q6 #120 tab 05/16/18 oxyCODONE/Acetaminophen [Percocet 1 tab PO Q4 PRN #20 tab 05/16/18 5/325 mg Tab] Doxycycline Hyclate 100 mg PO BID #20 capsule 05/18/18 Famotidine [Pepcid] 20 mg PO Q12 #14 tab 05/18/18 - Allergies Allergies/Adverse Reactions: Allergies Allergy/AdvReac Type Severity Reaction Status Date / Time alendronate sodium Allergy RASH Verified 05/17/18 23:10 CT Scan PO Contrast Allergy RASH Uncoded 05/17/18 23:10 Review of Systems ROS Statement: Except As Marked, All Systems Reviewed And Found Negative ENT: Positive for: Mouth Swelling (mild tongue swelling). Negative for: Throat Swelling (or difficulty swallowing) Respiratory: Negative for: Shortness of Breath Skin: Positive for: Rash (itchy), Other (facial redness and swelling) Physical Exam - Reviewed Vital Signs Reviewed: Yes - Physical Exam Appears: Positive for: No Acute Distress Head Exam: Positive for: ATRAUMATIC, NORMAL INSPECTION, NORMOCEPHALIC Skin: Positive for: Normal Color, Warm, Dry, Rash (Facial swelling and erythema ) Eye Exam: Positive for: Normal appearance, EOMI, PERRL ENT: Positive for: Normal ENT Inspection Neck: Positive for: Painless ROM, Supple Cardiovascular/Chest: Positive for: Regular Rate, Rhythm. Negative for: Murmur Respiratory: Positive for: Normal Breath Sounds. Negative for: Respiratory Distress Gastrointestinal/Abdominal: Positive for: Normal Exam, Soft. Negative for: Tenderness Back: Positive for: Normal Inspection Extremity: Positive for: Normal ROM (upper and lower extremities). Negative for : Deformity, Swelling Neurologic/Psych: Positive for: Alert, Oriented. Negative for: Motor/Sensory Deficits - Laboratory Results Result Diagrams: 05/17/18 23:52 09/02/18 23:52 - ECG O2 Sat by Pulse Oximetry: 100 (RA) Pulse Ox Interpretation: Normal Disposition - Clinical Impression Clinical Impression: Allergic reaction caused by a drug - Disposition Disposition: Routine/Home Disposition Time: 01:35 Condition: STABLE Additional Instructions: Please discontinue usage of Bactrim in favor of Doxycycline Continue with your Augmentin as scheduled Follow up with Doctor Bucio as scheduled Prescriptions: Doxycycline Hyclate 100 mg PO BID #20 capsule Famotidine [Pepcid] 20 mg PO Q12 #14 tab Instructions: Adverse Drug Reactions, Adult Forms: [employer] (Sami) Print Language: TAMAZIGHT Medical Decision Making Medical Decision Making: Time: 23:15 Initial Impression: 63 y/o male with acute allergic reaction in setting of antibiotic dosage Initial Plan: --CMP --CBC w/ differential --Benadryl 25 mg IV --Pepcid 40 mg IV --SOLU-medrol 125 mg IVP --Sodium Chloride 1,000 ml IV 1,000 mls/hr --Reevaluation 01:35 -Patient reports improvement of symptoms and is medically stable for discharge. Labs reviewed and showed no clinical significant abnormalities. Patient was evaluated by admitting team who recommends change in patient's antibiotics from Bactrim to doxycycline. Change in antibiotics conveyed to patient by Dr. Butts. Patient has an existent appointment with clinic for follow up which he will keep. Diagnosis allergic reaction to medication. ----- Scribe Attestation: Documented by Nando Suarez, acting as a scribe for Davion Fonseca MD. Provider Scribe Attestation: All medical record entries made by the Scribe were at my direction and personally dictated by me. I have reviewed the chart and agree that the record accurately reflects my personal performance of the history, physical exam, medical decision making, and the department course for this patient. I have also personally directed, reviewed, and agree with the discharge instructions and disposition.
[2018-05-17] MEDS ORDERED: DiphenhydrAMINE 50 mg/ml Inj ONE (23:51)
[2018-05-17 23:56] LABS: BASO # 0.1 K/uL (0.0-0.2); BASO % 0.6 % (0.0-2.0); EOS # 0.2 K/uL (0.0-0.7); EOS % 1.6 % (0.0-4.0); HEMOGLOBIN 12.2 g/dL (12.0-18.0); LYMPH # 1.6 K/uL (1.0-4.3); LYMPH % 12.3 % (20.0-40.0); MEAN CELL VOLUME 85.5 fl (80.0-94.0); MEAN CORPUSCULAR HEMOGLOBIN 28.5 pg (27.0-31.0); MEAN CORPUSCULAR HGB CONC 33.3 g/dL (33.0-37.0); MONO # 0.6 K/uL (0.0-0.8); MONO % 4.4 % (0.0-10.0); NEUT # 10.3 K/uL (1.8-7.0); NEUT % 81.1 % (50.0-75.0); RBC 4.3 Mil/uL (4.40-5.90); RED CELL DISTRIBUTION WIDTH 14.4 % (11.5-14.5); WHITE BLOOD COUNT 12.8 K/uL (4.8-10.8)
[2018-05-18 00:37] LABS: ALB/GLOB RATIO 1.3 (1.0-2.1); ALBUMIN 3.9 g/dL (3.5-5.0); CALCIUM 9.6 mg/dL (8.4-10.2)
[2018-05-18 02:00] VITALS: BP 181/97; PULSE 100; TEMP 98.1; O2SAT 98
== END 2018-05-18 02:04 | disposition home or self-care (01) ==
LOC: H.ER 22:49
DX: T78.40XA Allergy, unspecified, initial encounter (principal); E11.9 Type 2 diabetes mellitus without complications; E78.00 Pure hypercholesterolemia, unspecified; I10 Essential (primary) hypertension; Z79.4 Long term (current) use of insulin
CPT/HCPCS: 80053; 82948; 85025; 96374; 99284; J1200; J2930; J7030